=== PATIENT | male | born 1945 | race Caucasian/White ===

== ENCOUNTER 2018-08-08 10:09 | Emergency (ER) | payer MEDICARE, OTHER ==
--- NOTE | 2018-08-08 10:46 | ED Physician Documentation ---
PD HPI HEENT - Stated complaint Stated Complaint: SWOLLEN TOUNGE - Chief complaint Chief Complaint: Allergic Rx - History obtained from History obtained from: Patient - History of Present Illness Timing - onset: How many days ago (4) Timing - duration: Days (4) Timing - details: Gradual onset, Still present, Waxing and waning Location: Throat (feeling of tongue enlarged, but does not look like it.) Improves: No: Medication Worsens: No: Swalllowing Associated symptoms: No: Fever, Congestion, Rhinorrhea, Facial swelling (but feeling of back of tonue s) Similar symptoms before: Has not had sx before Review of Systems Constitutional: denies: Fever Nose: denies: Rhinorrhea / runny nose, Congestion Throat: reports: Sore throat Respiratory: denies: Cough PD PAST MEDICAL HISTORY - Past Medical History Past Medical History: No Cardiovascular: None Respiratory: None Neuro: TIA Endocrine/Autoimmune: None GI: None : None HEENT: None Psych: None Musculoskeletal: None Derm: None Other Past Medical History: patient in no acute distress or discomfort. states he santizo have an ear infection to both ears. - Past Surgical History Past Surgical History: No - Present Medications Home Medications: Ambulatory Orders Medication Instructions Recorded Confirmed Cetirizine [ZyrTEC] 10 mg PO DAILY #15 tablet 08/08/18 Ciproflox/Dexameth Otic Drops 4 drops OT BID #1 bottle 08/08/18 [Ciprodex] Clotrimazole 4 drops LEFTEAR BID #1 bottle 08/08/18 Dexamethasone [Decadron] 4 mg PO DAILY #5 tablet 08/08/18 Famotidine 20 mg PO DAILY #15 tablet 08/08/18 - Allergies Allergies/Adverse Reactions: Allergies Allergy/AdvReac Type Severity Reaction Status Date / Time No Known Drug Allergies Allergy Verified 08/08/18 10:18 - Social History Does the pt smoke?: No Smoking Status: Never smoker Does the pt drink ETOH?: Yes ETOH Use: Beer Does the pt have substance abuse?: No - Immunizations Immunizations are current?: No - POLST Patient has POLST: No PD ED PE NORMAL - Vitals Vital signs reviewed: Yes - General General: Alert and oriented X 3, No acute distress, Well developed/nourished - HEENT HEENT: Pharynx benign (I don't see swelling of tongue per see.) - Neck Neck: Supple, no meningeal sign, No adenopathy - Cardiac Cardiac: RRR, No murmur - Respiratory Respiratory: No respiratory distress - Abdomen Abdomen: Normal bowel sounds, Soft, Non tender Results - Vitals Vitals: Vital Signs - 24 hr 08/08/18 08/08/18 08/08/18 10:15 13:14 14:57 Temperature 36.4 C L Heart Rate 85 62 110 H Respiratory 18 16 16 Rate Blood Pressure 124/83 H 127/85 H 121/87 H O2 Saturation 98 98 97 Oxygen O2 Source Room air - Labs Labs: Laboratory Tests 08/08/18 08/08/18 12:05 12:05 Sodium 136 Potassium 2.9 L Chloride 97 L Carbon Dioxide 29 Anion Gap 10.0 BUN 14 Creatinine 1.3 H Estimated GFR (MDRD) 54 L Glucose 110 H Calcium 8.9 Total Bilirubin 0.7 AST 26 ALT 19 Alkaline Phosphatase 73 Total Protein 7.3 Albumin 3.6 Globulin 3.7 Albumin/Globulin Ratio 1.0 Lipase 37 Group A Strep Rapid Negative - Rads (name of study) CT neck soft tissue Radiology: Prelim report reviewed, Discussed with rads (improved enough to try outpatient, with ster) PD MEDICAL DECISION MAKING - ED course Complexity details: reviewed results (no noted focal edema, no mass, no abscess per radiologist. ), re-evaluated patient (feeling okay with sense of less swelling, but not completely resolved. ), considered differential (feeling of tongue swelling though visually not really enlarged. Uvula/Tonsils are okay size. Can get imaging to look for mass/abscess/focal edema.), d/w patient Departure - Departure Disposition: 01 Home, Self Care Clinical Impression: Tongue swelling Otitis externa Qualifiers: Otitis externa type: unspecified type Chronicity: acute Laterality: left Qualified Code(s): H60.502 - Unspecified acute noninfective otitis externa, left ear Condition: Stable Record reviewed to determine appropriate education?: Yes Instructions: ED Allergic Reaction General Other Follow-Up: [facility] [Provider Group] [facility] [Provider Group] Prescriptions: Cetirizine [ZyrTEC] 10 mg PO DAILY #15 tablet Ciproflox/Dexameth Otic Drops [Ciprodex] 4 drops OT BID #1 bottle Clotrimazole 4 drops LEFTEAR BID #1 bottle Dexamethasone [Decadron] 4 mg PO DAILY #5 tablet Famotidine 20 mg PO DAILY #15 tablet Comments: Presume this is an allergy reaction to something. Use the antihistamines and steroids as directed over the next week. Recheck if not improved over the next couple of days. If this does not improve completely or comes back again in the near future, then follow-up with manager search and I gave you the follow-up number. Otherwise obtain a local provider for future care and follow-up. For the ear infection, it looks like it could be bacterial or even possibly fungal. I would have use both in antibiotic eardrop with an anti-inflammatory as well as an antifungal eardrop. Both of them a few drops in the ear canal and a little bit rubbed onto the external part twice daily until its cleared up. Recheck if not improved over the next several days to week or so. Discharge Date/Time: 08/08/18 15:06
[2018-08-08] MEDS: diphenhydrAMINE ELIXIR 25 MG/10 ML UDC PO STA (11:25)
[2018-08-08] MEDS: DEXAMETHASONE 10 MG/ML VIAL PO STA (11:25)
[2018-08-08] MEDS: CETIRIZINE 10 MG TABLET PO STA (11:25)
[2018-08-08] MEDS ORDERED: CHERRY SYRUP 10 ML UDC PO ONE (11:27)
[2018-08-08] MEDS ORDERED: IOVERSOL 320 100 ML VIAL IVP ONE (11:29)
[2018-08-08 12:28] LABS: ALBUMIN 3.6 g/dL (3.2-5.5); BILIRUBIN,TOTAL 0.7 mg/dL (0.2-1.0); CALCIUM 8.9 mg/dL (8.5-10.3); CREATININE 1.3 mg/dL (0.6-1.2); TOTAL PROTEIN 7.3 g/dL (6.7-8.2)
[2018-08-08] MEDS: IOVERSOL 320 100 ML VIAL IVP ONE (13:00)
--- NOTE | 2018-08-08 13:56 | CT Report ---
Reason: feeling of swelling base of tongue and upper throa Procedure Date: 08/08/2018 Accession Number: [id number] / [id number] Procedure: CT - Neck Soft Tissue W/ CPT Code: FULL RESULT: EXAM: CT SOFT TISSUE NECK WITH CONTRAST. EXAM DATE: 08/08/2018 12:56 PM. HISTORY: 73-year-old male, feeling of swelling base of tongue and upper throat COMPARISONS: None. TECHNIQUE: Routine soft tissue neck CT protocol. Reconstructions: Coronal and sagittal. IV contrast: 80 cc Optiray 320. In accordance with CT protocol optimization, one or more of the following dose reduction techniques were utilized for this exam: automated exposure control, adjustment of mA and/or KV based on patient size, or use of iterative reconstructive technique. FINDINGS: Visualized Intracranial Contents: Unremarkable. Orbits: Symmetric and unremarkable. Sinuses: Visualized paranasal sinuses and mastoid air cells are clear. Oral cavity: The visualized oral cavity is unremarkable. The floor of the mouth is symmetric. Pharynx : Pharyngeal mucosa is unremarkable. The infratemporal fossa, parapharyngeal spaces, and retropharyngeal space are unremarkable. The base of the tongue is symmetric and unremarkable. The airway is patent. Larynx: Larynx and supraglottic airway are patent without mass lesion. Vocal cords are symmetric. The visualized trachea is unremarkable. Parotid and Submandibular Glands: Symmetric and unremarkable. Lymph Nodes: No enlarged lymph nodes are identified in the cervical, supraclavicular, and visualized superior mediastinal regions. Soft tissues: Soft tissues are unremarkable. No mass lesion or abnormal enhancement. Vascular Structures: Unremarkable. Thyroid Gland: Normal. Lung: The visualized lung apices are clear. Bones: No evidence of acute fracture or malalignment. There are mild multilevel degenerative changes. Other: None. IMPRESSION: No definite mucosal abnormality, soft tissue mass, adenopathy, or abscess. RADIA
[2018-08-08 14:57] VITALS: BP 121/87
== END 2018-08-08 15:06 | disposition home or self-care (01) ==
LOC: ED 10:09
DX: K14.8 Other diseases of tongue (principal); H60.502 Unspecified acute noninfective otitis externa, left ear; R22.1 Localized swelling, mass and lump, neck; Z86.73 Personal history of transient ischemic attack (TIA), and cerebral infarction without residual deficits
CPT/HCPCS: 36415; 70491; 80053; 83690; 87070; 87430; 99283; A9270; Q9967

== ENCOUNTER 2019-10-03 13:38 | Inpatient (IN) | payer MEDICARE, OTHER ==
[2019-10-03] MEDS ORDERED: SODIUM CHLORIDE 0.9% 1,000 ML IV ONE ×2 (14:13→15:12)
--- NOTE | 2019-10-03 14:17 | ED Physician Documentation ---
History of Present Illness - Stated complaint Stated Complaint: N/V/LT SIDE ABD PX - Chief complaint Chief Complaint: Abd Pain - History obtained from History obtained from: Patient - Additonal information Additional information: Patient comes emergency department complaining of nausea and vomiting for the last 8 to 9 days. Patient states if he tries to take anything other than small amounts of water, he vomits them right back up. Patient states the last thing he ate was Cheerios over a week ago. Patient states that he thought he might be constipated because he was not having bowel movements or passing gas, so he tried taking laxatives but these did not work. He states that he has not had a bowel movement the entire time that he has been ill. He denies any fevers. He gets an intermittent left-sided abdominal pain. No dysuria or hematuria. No history of kidney stones. No cough, fever, or shortness of breath. No lower extremity edema. Patient states he is still making urine, but that this is been less than normal. He denies any underlying conditions that he knows of. No diabetes. He has not had any unexpected weight loss prior to this illness, though he does note he has lost 20 pounds in the last week and a half. No other complaints at this time. No sick contacts. Review of Systems Ten Systems: 10 systems reviewed and negative Constitutional: reports: Reviewed and negative Eyes: reports: Reviewed and negative Ears: reports: Reviewed and negative Nose: reports: Reviewed and negative Throat: reports: Reviewed and negative Cardiac: reports: Reviewed and negative Respiratory: reports: Reviewed and negative GI: reports: Abdominal Pain, Nausea, Vomiting. denies: Diarrhea : reports: Reviewed and negative Skin: reports: Reviewed and negative Musculoskeletal: reports: Reviewed and negative Neurologic: reports: Reviewed and negative Psychiatric: reports: Reviewed and negative Endocrine: reports: Reviewed and negative Immunocompromised: reports: Reviewed and negative PD PAST MEDICAL HISTORY - Past Medical History Past Medical History: Yes Cardiovascular: None Respiratory: None Neuro: TIA Endocrine/Autoimmune: None GI: None : None HEENT: None Psych: None Musculoskeletal: None Derm: None - Past Surgical History Past Surgical History: No - Present Medications Home Medications: Ambulatory Orders Medication Instructions Recorded Confirmed No Known Home Medications 10/04/19 10/04/19 - Allergies Allergies/Adverse Reactions: Allergies Allergy/AdvReac Type Severity Reaction Status Date / Time No Known Drug Allergies Allergy Verified 10/03/19 13:56 - Social History Does the pt smoke?: No Smoking Status: Never smoker Does the pt drink ETOH?: Yes Does the pt have substance abuse?: No - Immunizations Immunizations are current?: No - POLST Patient has POLST: No PD ED PE NORMAL - Vitals Vital signs reviewed: Yes - General General: Alert and oriented X 3, No acute distress, Well developed/nourished - HEENT HEENT: Atraumatic, PERRL, EOMI, Moist mucous membranes - Neck Neck: Supple, no meningeal sign - Cardiac Cardiac: RRR, No murmur, Strong equal pulses - Respiratory Respiratory: No respiratory distress, Clear bilaterally - Abdomen Abdomen: Soft, Non tender, Non distended - Back Back: No CVA TTP - Derm Derm: Normal color, Warm and dry, No rash - Extremities Extremities: No deformity - Neuro Neuro: Alert and oriented X 3, instructional aide 2-12 intact, No motor deficit, No sensory deficit, Normal speech - Psych Psych: Normal mood, Normal affect Results - Vitals Vitals: Vital Signs - 24 hr 10/03/19 10/03/19 10/03/19 13:50 14:54 15:41 Temperature 35.8 C L Heart Rate 107 H 94 68 Respiratory 20 16 16 Rate Blood Pressure 138/95 H 149/87 H 142/81 H O2 Saturation 96 97 98 10/03/19 10/03/19 16:54 18:21 Temperature Heart Rate 72 76 Respiratory 16 17 Rate Blood Pressure 132/80 H 136/73 H O2 Saturation 98 98 Oxygen O2 Source Room air - Labs Labs: Laboratory Tests 10/03/19 10/03/19 10/03/19 14:00 14:00 14:00 WBC 10.7 RBC 5.42 Hgb 15.9 Hct 48.3 MCV 89.1 MCH 29.3 MCHC 32.9 RDW 13.6 Plt Count 365 MPV 10.8 Neut # (Auto) 8.5 H Lymph # (Auto) 1.4 L Cooper # (Auto) 0.7 Eos # (Auto) 0.0 Baso # (Auto) 0.0 Absolute Nucleated RBC 0.00 Nucleated RBC % 0.0 PT 14.2 H INR 1.3 H Sodium 142 Potassium 3.5 Chloride 106 Carbon Dioxide 20 L Anion Gap 16.0 H BUN 78 H Creatinine 1.9 H Estimated GFR (MDRD) 35 L Glucose 126 H Lactic Acid Calcium 9.2 Total Bilirubin 1.0 AST 17 ALT 13 Alkaline Phosphatase 71 Total Protein 8.5 H Albumin 4.0 Globulin 4.5 H Albumin/Globulin Ratio 0.9 L Lipase 29 Urine Color Urine Clarity Urine pH Ur Specific [place] Urine Protein Urine Glucose (UA) Urine Ketones Urine Occult Blood Urine Nitrite Urine Bilirubin Urine Urobilinogen Ur Leukocyte Esterase Ur Microscopic Review Urine Culture Comments 10/03/19 10/03/19 16:52 17:05 WBC RBC Hgb Hct MCV MCH MCHC RDW Plt Count MPV Neut # (Auto) Lymph # (Auto) Cooper # (Auto) Eos # (Auto) Baso # (Auto) Absolute Nucleated RBC Nucleated RBC % PT INR Sodium Potassium Chloride Carbon Dioxide Anion Gap BUN Creatinine Estimated GFR (MDRD) Glucose Lactic Acid 1.1 Calcium Total Bilirubin AST ALT Alkaline Phosphatase Total Protein Albumin Globulin Albumin/Globulin Ratio Lipase Urine Color YELLOW Urine Clarity CLEAR Urine pH 5.5 Ur Specific [place] 1.025 Urine Protein TRACE Urine Glucose (UA) NEGATIVE Urine Ketones TRACE Urine Occult Blood NEGATIVE Urine Nitrite NEGATIVE Urine Bilirubin NEGATIVE Urine Urobilinogen 0.2 (NORMAL) Ur Leukocyte Esterase NEGATIVE Ur Microscopic Review NOT INDICATED Urine Culture Comments NOT INDICATED - Rads (name of study) CT abdomen and pelvis Radiology: Final report received, Discussed with rads, EMP read indepedently, See rad report (Final radiologist interpretation: Free intra-abdominal air, seen in upper abdomen. Exact source is indeterminate. Small bowel obstruction that is suspected to be secondary to a twisting of the central mesentery.) PD MEDICAL DECISION MAKING - ED course Complexity details: reviewed results, re-evaluated patient, considered differential, d/w patient ED course: Patient was worked up with labs and urinalysis initially, and given a 1 L bolus of 0.9 normal saline. He reported a significant period of time with nausea and vomiting and without being able to take in significant p.o. However, his vitals were not significantly abnormal, and his abdominal exam was benign. Patient was found to have a normal lactate and normal white blood cell count. He had not made any urine after the first liter fluid so he was given a second liter. CT scan of the abdomen and pelvis was performed, albeit without contrast because the patient's creatinine was 1.9 and his GFR was only 35. He was found to have what appeared to be twisting of the mesentery and a small bowel obstruction, as well as scant bubbles of free air up around the liver, under the diaphragm. I spoke with Dr. Leavitt, who is on-call for surgery, and after evaluating the patient and his records, she asked if medicine could admit the patient, as at this point, there is not a clear source of the perforation and the patient is very stable. She stated she suspects that perhaps have patient has had Crohn's for some time and has not been aware of this. I did speak with Dr. Cardona, who did agree to come and see the patient. After speaking with the surgeon, the patient was admitted to hospitalist service. I given him a dose of cefotetan but at hospitalist request, this was changed to Zosyn. The patient remained very stable in the ED, and his heart rate did normalize from the mild tachycardia he initially had. He still had not made urine after the second liter so 1/3 L of 0.9 normal saline was started in the emergency department. Departure - Departure Disposition: [facility] DC/Xfer Clinical Impression: Small bowel obstruction, Perforated abdominal viscus Condition: Serious Discharge Date/Time: 10/03/19 19:23
[2019-10-03 14:23] LABS: BASOPHILS % (AUTO) 0.2 %; HGB - HEMOGLOBIN 15.9 g/dL (14.0-18.0); LYMPHOCYTES # (AUTO) 1.4 10^3/uL (1.5-3.5); LYMPHOCYTES % (AUTO) 13.1 %; MEAN CORPUSCULAR HEMOGLOBIN 29.3 pg (27.0-31.0); MEAN CORPUSCULAR HGB CONC 32.9 g/dL (32.0-36.0); MEAN CORPUSCULAR VOLUME 89.1 fL (80.0-94.0); MEAN PLATELET VOLUME 10.8 fL (7.4-11.4); MONOCYTES # (AUTO) 0.7 10^3/uL (0.0-1.0); MONOCYTES % (AUTO) 6.5 %; NEUTROPHILS # (AUTO) 8.5 10^3/uL (1.5-6.6); NEUTROPHILS % (AUTO) 79.7 %; PLT - PLATELET COUNT 365 10^3/uL (130-450); RED BLOOD COUNT 5.42 10^6/uL (4.70-6.10); RED CELL DISTRIBUTION WIDTH 13.6 % (12.0-15.0); WHITE BLOOD COUNT 10.7 x10^3/uL (4.8-10.8)
[2019-10-03 14:28] LABS: INR 1.3 (0.8-1.2); PT - PROTHROMBIN TIME 14.2 secs (9.9-12.6)
[2019-10-03 14:37] LABS: ALBUMIN/GLOBULIN RATIO 0.9 (1.0-2.2); CALCIUM 9.2 mg/dL (8.5-10.3); CREATININE 1.9 mg/dL (0.6-1.2); TOTAL PROTEIN 8.5 g/dL (6.7-8.2)
--- NOTE | 2019-10-03 16:27 | CT Report ---
Reason: abdominal pain, vomiting Procedure Date: 10/03/2019 Accession Number: [id number] / [id number] Procedure: CT - Abdomen/Pelvis WO CPT Code: Addended Final Report FULL RESULT: EXAM: CT ABDOMEN AND PELVIS (CT KUB) EXAM DATE: 10/03/2019 03:32 PM. CLINICAL HISTORY: Abdominal pain, vomiting. COMPARISONS: None. TECHNIQUE: Routine axial helical CT imaging was performed through the abdomen and pelvis without IV contrast. Reconstructions: Coronal and sagittal. In accordance with CT protocol optimization, one or more of the following dose reduction techniques were utilized for this exam: automated exposure control, adjustment of mA and/or KV based on patient size, or use of iterative reconstructive technique. FINDINGS: There is free intraperitoneal air, with small air lucencies seen within the mesentery of the upper abdomen, as well as anterior to the liver and along the left paracolic gutter. The stomach is distended with fluid. There are dilated small bowel loops in the lower abdomen and within the pelvis measuring up to 3.2 cm transversely, with air-fluid levels. There is a twisting of the central mesentery with associated fat stranding, best seen on coronal images series 5 images 15 through 25. The bowel distal to this finding appears to be relatively decompressed, including the colon. No focal lesions detected of the parenchyma of the non-IV contrasted liver, spleen, pancreas, adrenal glands, or kidneys. No aneurysm of the abdominal aorta identified. IMPRESSION: 1. Free intraabdominal air, seen in the upper abdomen. Exact source is indeterminate. 2. Small bowel obstruction that is suspected to be secondary to a twisting of the central mesentery. RADIA The call report notification system was initiated by Dr. Shawn Becker at 04:26 PM on 10/03/2019. ADDENDUM: 10/03/19 16:43 The above call report findings were discussed with Dr. Heidy Rivers by Dr. Shawn Becker at 04:43 PM on 10/03/2019.
[2019-10-03] MEDS ORDERED: CEFOTETAN DISODIUM 2 GM in SODIUM CHLORIDE 0.9% MINIBAG 100 ML IV STA (16:37)
[2019-10-03 17:15] LABS: BILIRUBIN,URINE NEGATIVE (NEGATIVE); GLUCOSE, URINE (UA) NEGATIVE (NEGATIVE); KETONES,URINE (UA) TRACE mg/dL (NEGATIVE); LEUKOCYTE ESTERASE, URINE NEGATIVE (NEGATIVE); NITRITE,URINE NEGATIVE (NEGATIVE); OCCULT BLOOD,URINE NEGATIVE (NEGATIVE); PH,URINE 5.5 PH (5.0-7.5); PROTEIN,URINE TRACE mg/dL (NEGATIVE); UROBILINOGEN,URINE 0.2 (NORMAL) E.U./dL (NORMAL)
[2019-10-03 17:18] LABS: CLARITY,URINE CLEAR (CLEAR)
[2019-10-03] MEDS ORDERED: PIPERACILLIN/TAZOBACTAM 3.375 GM in SODIUM CHLORIDE 0.9% MINIBAG 100 ML IV STA (18:00)
[2019-10-03] MEDS ORDERED: MORPHINE 2 MG/ML CARPUJECT IVP PRN (18:35)
[2019-10-03] MEDS ORDERED: ONDANSETRON 4 MG/2 ML VIAL IVP PRN (18:35)
[2019-10-03] MEDS ORDERED: SODIUM CHLORIDE FLUSH 0.9% 10 ML SYRINGE IVP PRN (18:35)
[2019-10-03] MEDS ORDERED: PROCHLORPERAZINE 10 MG/2 ML VIAL IVP PRN (18:35)
--- NOTE | 2019-10-03 18:50 | HISTORY & PHYSICAL EXAMINATION ---
Chief Complaint - Chief Complaint Chief Complaint: Nausea and vomiting x1 week with abdominal pain Abdominal Pain HPI - Admitted From Admitted from: ED - History Obtained From Records Reviewed: RN notes reviewed History obtained from: Patient Exam limitations: No limitations - History of Present Illness Pain/Problem Location Description: Patient presented with a one-week history of abdominal pain that started 7 Severity at the worst: Severe Pain Quality: Sharp Context-Pain started w/: Eating Timing: Gradual onset Duration: Minutes: Improved with: Other (Avoiding food) Worsened by: Eating Associated symptoms: Nausea, Vomiting, General Weakness PMH/PSH - Past Medical History Cardiovascular: positive: None Respiratory: positive: None Neuro: positive: TIA Endocrine/Autoimmune: positive: None GI: positive: None : positive: None HEENT: positive: None Psych: positive: None Musculoskeletal: positive: None Derm: positive: None MRSA Hx?: No Social & Family Hx - Living Situation Living Arrangement: At home Living Situation: Other (With) - Social History Does the pt smoke?: Yes Smoking Status: Current every day smoker Does the pt drink ETOH?: No Does the pt have substance abuse?: No - POLST Patient has POLST: No POLST Status: Full Code - Family History Family History Comment/Other: Patient denies any family history of medical conditions of any kind including cancers and autoimmune conditions Meds/Allgy - Home Medications Home Medications: Ambulatory Orders Medication Instructions Recorded Confirmed Cetirizine [ZyrTEC] 10 mg PO DAILY #15 tablet 08/08/18 Famotidine 20 mg PO DAILY #15 tablet 08/08/18 - Allergies Allergies/Adverse Reactions: Allergies Allergy/AdvReac Type Severity Reaction Status Date / Time No Known Drug Allergies Allergy Verified 10/03/19 13:56 Review of Systems - Constitutional Constitutional: reports: Fatigue. denies: Fever, Chills - Cardiovascular Cariovascular: denies: Irregular heart rate, Palpitations, Chest pain - Respiratory Respiratory: denies: Cough, Wheezing, SOB at rest, SOB with exertion - Gastrointestinal Gastrointestinal: reports: Abdominal pain, Constipation, Change in bowel habits, Nausea, Vomiting. denies: Abdominal distention, Diarrhea, Rectal bleeding - Genitourinary Genitourinary: denies: Dysuria, Frequency, Urgency, Hematuria - Musculoskeletal Musculoskeletal: denies: Muscle pain - Integumentary Integumentary: denies: Rash - Neurological Neurological: reports: General weakness. denies: Focal weakness Prior Level of Functionality: Independant Exam - Vital Signs Reviewed Vital Signs: Yes Vital Signs: Vital Signs x48h Temp Pulse Resp BP Pulse Ox 10/03/19 18:21 76 17 136/73 H 98 10/03/19 16:54 72 16 132/80 H 98 10/03/19 15:41 68 16 142/81 H 98 10/03/19 14:54 94 16 149/87 H 97 10/03/19 13:50 35.8 C L 107 H 20 138/95 H 96 - Physical Exam General Appearance: positive: No acute distress Eyes Bilateral: positive: Normal inspection ENT: positive: ENT inspection nml Neck: positive: Nml inspection, Thyroid nml, No JVD Respiratory: positive: Chest non-tender, No respiratory distress, Breath sounds nml Cardiovascular: positive: Regular rate & rhythm, No murmur, No gallop Abdomen: positive: Other (Minimal generalized abdominal tenderness, somewhat worse at the right upper quadrant, but relatively benign abdominal exam. No distention, no rebound, bowel sounds positive x4 quadrants) Skin: positive: Color nml Extremities: positive: Non-tender, Full ROM, Nml appearance Neurologic/Psychiatric: positive: Oriented x3, CN's nml (2-12) Results - Lab Results Fish Bones: 10/03/19 14:00 10/03/19 14:00 Other Lab Results: Lab Results x24hrs 10/03/19 10/03/19 10/03/19 Range/Units 17:05 16:52 14:00 WBC (4.8-10.8) x10^3/uL RBC (4.70-6.10) 10^6/uL Hgb (14.0-18.0) g/dL Hct (42.0-52.0) % MCV (80.0-94.0) fL MCH (27.0-31.0) pg MCHC (32.0-36.0) g/dL RDW (12.0-15.0) % Plt Count (130-450) 10^3/uL MPV (7.4-11.4) fL Neut # (Auto) (1.5-6.6) 10^3/uL Lymph # (Auto) (1.5-3.5) 10^3/uL [place] # (Auto) (0.0-1.0) 10^3/uL Eos # (Auto) (0.0-0.7) 10^3/uL Baso # (Auto) (0.0-0.1) 10^3/uL Absolute Nucleated RBC x10^3/uL Nucleated RBC % /100WBC PT (9.9-12.6) secs INR (0.8-1.2) Sodium 142 (135-145) mmol/L Potassium 3.5 (3.5-5.0) mmol/L Chloride 106 (101-111) mmol/L Carbon Dioxide 20 L (21-32) mmol/L Anion Gap 16.0 H (6-13) BUN 78 H (6-20) mg/dL Creatinine 1.9 H (0.6-1.2) mg/dL Estimated GFR (MDRD) 35 L (>89) Glucose 126 H (70-100) mg/dL Lactic Acid 1.1 (0.5-2.2) mmol/L Calcium 9.2 (8.5-10.3) mg/dL Total Bilirubin 1.0 (0.2-1.0) mg/dL AST 17 (10-42) IU/L ALT 13 (10-60) IU/L Alkaline Phosphatase 71 (42-121) IU/L Total Protein 8.5 H (6.7-8.2) g/dL Albumin 4.0 (3.2-5.5) g/dL Globulin 4.5 H (2.1-4.2) g/dL Albumin/Globulin Ratio 0.9 L (1.0-2.2) Lipase 29 (22-51) U/L Urine Color YELLOW Urine Clarity CLEAR (CLEAR) Urine pH 5.5 (5.0-7.5) PH Ur Specific [place] 1.025 (1.002-1.030) Urine Protein TRACE (NEGATIVE) mg/dL Urine Glucose (UA) NEGATIVE (NEGATIVE) mg/dL Urine Ketones TRACE (NEGATIVE) mg/dL Urine Occult Blood NEGATIVE (NEGATIVE) Urine Nitrite NEGATIVE (NEGATIVE) Urine Bilirubin NEGATIVE (NEGATIVE) Urine Urobilinogen 0.2 (NORMAL) (NORMAL) E.U./dL Ur Leukocyte Esterase NEGATIVE (NEGATIVE) Ur Microscopic Review NOT INDICATED Urine Culture Comments NOT INDICATED 10/03/19 10/03/19 Range/Units 14:00 14:00 WBC 10.7 (4.8-10.8) x10^3/uL RBC 5.42 (4.70-6.10) 10^6/uL Hgb 15.9 (14.0-18.0) g/dL Hct 48.3 (42.0-52.0) % MCV 89.1 (80.0-94.0) fL MCH 29.3 (27.0-31.0) pg MCHC 32.9 (32.0-36.0) g/dL RDW 13.6 (12.0-15.0) % Plt Count 365 (130-450) 10^3/uL MPV 10.8 (7.4-11.4) fL Neut # (Auto) 8.5 H (1.5-6.6) 10^3/uL Lymph # (Auto) 1.4 L (1.5-3.5) 10^3/uL [place] # (Auto) 0.7 (0.0-1.0) 10^3/uL Eos # (Auto) 0.0 (0.0-0.7) 10^3/uL Baso # (Auto) 0.0 (0.0-0.1) 10^3/uL Absolute Nucleated RBC 0.00 x10^3/uL Nucleated RBC % 0.0 /100WBC PT 14.2 H (9.9-12.6) secs INR 1.3 H (0.8-1.2) Sodium (135-145) mmol/L Potassium (3.5-5.0) mmol/L Chloride (101-111) mmol/L Carbon Dioxide (21-32) mmol/L Anion Gap (6-13) BUN (6-20) mg/dL Creatinine (0.6-1.2) mg/dL Estimated GFR (MDRD) (>89) Glucose (70-100) mg/dL Lactic Acid (0.5-2.2) mmol/L Calcium (8.5-10.3) mg/dL Total Bilirubin (0.2-1.0) mg/dL AST (10-42) IU/L ALT (10-60) IU/L Alkaline Phosphatase (42-121) IU/L Total Protein (6.7-8.2) g/dL Albumin (3.2-5.5) g/dL Globulin (2.1-4.2) g/dL Albumin/Globulin Ratio (1.0-2.2) Lipase (22-51) U/L Urine Color Urine Clarity (CLEAR) Urine pH (5.0-7.5) PH Ur Specific [place] (1.002-1.030) Urine Protein (NEGATIVE) mg/dL Urine Glucose (UA) (NEGATIVE) mg/dL Urine Ketones (NEGATIVE) mg/dL Urine Occult Blood (NEGATIVE) Urine Nitrite (NEGATIVE) Urine Bilirubin (NEGATIVE) Urine Urobilinogen (NORMAL) E.U./dL Ur Leukocyte Esterase (NEGATIVE) Ur Microscopic Review Urine Culture Comments - Diagnostic Imaging Results Diagnostic Imaging Results: positive: Final report reviewed Impression/Plan - Problem List Problem List: Small bowel obstruction Free air in the abdomen Nausea and vomiting PATY Impression: Patient has findings on CT scan consistent with a small bowel obstruction with the possibility of a small perforation suggested by the free air in the right hemidiaphragmatic space. Most likely of small bowel origin. Discussed with general surgery, and miriam, who was kind enough to provide consultative services. Her thinking is that this is likely inflammatory bowel disease, pr obably Crohn's, and I would agree that this is certainly a suspicion, supported by the history that the patient had similar symptoms about 1 year ago and coincidentally had some tongue swelling for which she was given a steroid which also helped his GI symptoms. Patient is having PATY, which is prohibited the use of contrast during the CT scan, likely precipitated by the nausea and vomiting in the last 7 days.Will provide IV fluids for hydration, optimize renal function, with plan to repeat CT scan in the next 1 to 2 days with oral and IV contrast and after further evaluating unenhanced imaging, deciding on possible colonoscopy versus transfer for outside facility for more complicated fistula, or inflammatory bowel disease etc. For now, hold off on steroids and treat empirically with IV antibiotics, using Zosyn for intra-abdominal pathogen coverage. Core Measures - Anticipated LOS I expect patient to be DC'd or transferred within 96 hours.: Yes - DVT/VTE - Prophylaxis VTE/DVT Device ordered at admit?: Yes VTE/DVT Prophylaxis med ordered at admit?: No Not Ordered - Medical Reason: Not indicated
[2019-10-03] MEDS: PIPERACILLIN/TAZOBACTAM 3.375 GM in SODIUM CHLORIDE 0.9% MINIBAG 100 ML IV SCH ×2 (19:18→19:53)
--- NOTE | 2019-10-03 20:15 | HISTORY & PHYSICAL EXAMINATION ---
Chief Complaint - Chief Complaint Chief Complaint: nausea/vomitting/abdominal pain Abdominal Pain HPI - History Obtained From Records Reviewed: RN notes reviewed, Old records reviewed History obtained from: Patient - History of Present Illness HPI Comment/Other: Conor is a very pleasant 74 yo WM who came into the ER due to nausea/vomiting, abdominal pain and lack of BM/passing gas which all started 8 days ago. He reports he started with moderate-severe cramping periumbilical pain that was at it's worst 5 days ago and has lessened but not resolved. It is associated with nausea and vomiting which started about 4-5 days ago the nausea became worse and started vomiting. He stopped passing gas at that time as well. He hasn't had an appetite for the entire time and wasn't able to keep anything down except water for the last 5 days. He also reports his last BM was about 10 days ago. He tried lost of laxatives which haven't had any success. He has had an episode like this about a year ago, after 3-4 days he developed swelling of his tongue and went to the ER and was given IV steroids and sent home on steroids and he reports his bowel symptoms and his swelling resolved and hasn't had an episode since. He also reports a 7 year history of diarrhea. He describes it as 2-3 non-formed loose stools a day, he doesn't remember it following a particular incident just started. There is some variation with food choices. He did not go see anyone about this. He has not had any scopes done or any workup. PMH/PSH - Past Medical History Cardiovascular: positive: None Respiratory: positive: None Neuro: positive: TIA Endocrine/Autoimmune: positive: None GI: positive: None : positive: None HEENT: positive: None Psych: positive: None Musculoskeletal: positive: None Derm: positive: None MRSA Hx?: No Social & Family Hx - Social History Does the pt smoke?: Yes Smoking Status: Current every day smoker Does the pt drink ETOH?: No Does the pt have substance abuse?: No - POLST Patient has POLST: No POLST Status: Full Code Meds/Allgy - Home Medications Home Medications: Ambulatory Orders Medication Instructions Recorded Confirmed Cetirizine [ZyrTEC] 10 mg PO DAILY #15 tablet 08/08/18 Famotidine 20 mg PO DAILY #15 tablet 08/08/18 - Allergies Allergies/Adverse Reactions: Allergies Allergy/AdvReac Type Severity Reaction Status Date / Time No Known Drug Allergies Allergy Verified 10/03/19 13:56 Review of Systems - Constitutional Constitutional: reports: Fatigue, Malaise, Poor appetite, Weight loss. denies: Fever, Chills - Eyes Eyes: denies: Pain - Ears, Nose & Throat Ears, Nose & Throat: denies: Ear pain - Cardiovascular Cariovascular: reports: Other (history of an ND). denies: Irregular heart rate, Palpitations, Chest pain - Respiratory Respiratory: denies: Cough, Wheezing - Gastrointestinal Gastrointestinal: reports: Abdominal pain (started 8 days ago with periumbilical pain that was at it's worst 5 days ago and has lessened but not resolved), Diarrhea (for the last 7 years, never gone in to have it worked up), Nausea, Vomiting - All Other Systems All Other Systems: reports: Reviewed and negative Exam - Vital Signs Vital Signs: Vital Signs x48h Temp Pulse Pulse Resp BP BP Pulse Ox 10/03/19 19:44 36.7 C 71 17 127/79 98 10/03/19 19:21 67 14 135/71 H 98 10/03/19 18:21 76 17 136/73 H 98 10/03/19 16:54 72 16 132/80 H 98 10/03/19 15:41 68 16 142/81 H 98 10/03/19 14:54 94 16 149/87 H 97 10/03/19 13:50 35.8 C L 107 H 20 138/95 H 96 - Physical Exam General Appearance: positive: No acute distress (resting comfortably in bed able to hold conversation without any issues moving around in bed without discomfort) Eyes Bilateral: positive: Normal inspection ENT: positive: ENT inspection nml Neck: positive: Nml inspection Respiratory: positive: Breath sounds nml Cardiovascular: positive: Regular rate & rhythm Abdomen: positive: Non-tender, No distention, Abnml bowel sounds (hypoactive BS), Other (unimpressive abdominal exam with diminished BS). negative: Guarding, Rebound, Mass Skin: positive: Warm, Dry Extremities: positive: Full ROM, Nml appearance Neurologic/Psychiatric: positive: Oriented x3, Mood/affect nml Results - Lab Results Fish Bones: 10/03/19 14:00 10/03/19 14:00 Other Lab Results: Lab Results x24hrs 10/03/19 10/03/19 10/03/19 Range/Units 17:05 16:52 14:00 WBC (4.8-10.8) x10^3/uL RBC (4.70-6.10) 10^6/uL Hgb (14.0-18.0) g/dL Hct (42.0-52.0) % MCV (80.0-94.0) fL MCH (27.0-31.0) pg MCHC (32.0-36.0) g/dL RDW (12.0-15.0) % Plt Count (130-450) 10^3/uL MPV (7.4-11.4) fL Neut # (Auto) (1.5-6.6) 10^3/uL Lymph # (Auto) (1.5-3.5) 10^3/uL [place] # (Auto) (0.0-1.0) 10^3/uL Eos # (Auto) (0.0-0.7) 10^3/uL Baso # (Auto) (0.0-0.1) 10^3/uL Absolute Nucleated RBC x10^3/uL Nucleated RBC % /100WBC PT (9.9-12.6) secs INR (0.8-1.2) Sodium 142 (135-145) mmol/L Potassium 3.5 (3.5-5.0) mmol/L Chloride 106 (101-111) mmol/L Carbon Dioxide 20 L (21-32) mmol/L Anion Gap 16.0 H (6-13) BUN 78 H (6-20) mg/dL Creatinine 1.9 H (0.6-1.2) mg/dL Estimated GFR (MDRD) 35 L (>89) Glucose 126 H (70-100) mg/dL Lactic Acid 1.1 (0.5-2.2) mmol/L Calcium 9.2 (8.5-10.3) mg/dL Total Bilirubin 1.0 (0.2-1.0) mg/dL AST 17 (10-42) IU/L ALT 13 (10-60) IU/L Alkaline Phosphatase 71 (42-121) IU/L Total Protein 8.5 H (6.7-8.2) g/dL Albumin 4.0 (3.2-5.5) g/dL Globulin 4.5 H (2.1-4.2) g/dL Albumin/Globulin Ratio 0.9 L (1.0-2.2) Lipase 29 (22-51) U/L Urine Color YELLOW Urine Clarity CLEAR (CLEAR) Urine pH 5.5 (5.0-7.5) PH Ur Specific [place] 1.025 (1.002-1.030) Urine Protein TRACE (NEGATIVE) mg/dL Urine Glucose (UA) NEGATIVE (NEGATIVE) mg/dL Urine Ketones TRACE (NEGATIVE) mg/dL Urine Occult Blood NEGATIVE (NEGATIVE) Urine Nitrite NEGATIVE (NEGATIVE) Urine Bilirubin NEGATIVE (NEGATIVE) Urine Urobilinogen 0.2 (NORMAL) (NORMAL) E.U./dL Ur Leukocyte Esterase NEGATIVE (NEGATIVE) Ur Microscopic Review NOT INDICATED Urine Culture Comments NOT INDICATED 10/03/19 10/03/19 Range/Units 14:00 14:00 WBC 10.7 (4.8-10.8) x10^3/uL RBC 5.42 (4.70-6.10) 10^6/uL Hgb 15.9 (14.0-18.0) g/dL Hct 48.3 (42.0-52.0) % MCV 89.1 (80.0-94.0) fL MCH 29.3 (27.0-31.0) pg MCHC 32.9 (32.0-36.0) g/dL RDW 13.6 (12.0-15.0) % Plt Count 365 (130-450) 10^3/uL MPV 10.8 (7.4-11.4) fL Neut # (Auto) 8.5 H (1.5-6.6) 10^3/uL Lymph # (Auto) 1.4 L (1.5-3.5) 10^3/uL [place] # (Auto) 0.7 (0.0-1.0) 10^3/uL Eos # (Auto) 0.0 (0.0-0.7) 10^3/uL Baso # (Auto) 0.0 (0.0-0.1) 10^3/uL Absolute Nucleated RBC 0.00 x10^3/uL Nucleated RBC % 0.0 /100WBC PT 14.2 H (9.9-12.6) secs INR 1.3 H (0.8-1.2) Sodium (135-145) mmol/L Potassium (3.5-5.0) mmol/L Chloride (101-111) mmol/L Carbon Dioxide (21-32) mmol/L Anion Gap (6-13) BUN (6-20) mg/dL Creatinine (0.6-1.2) mg/dL Estimated GFR (MDRD) (>89) Glucose (70-100) mg/dL Lactic Acid (0.5-2.2) mmol/L Calcium (8.5-10.3) mg/dL Total Bilirubin (0.2-1.0) mg/dL AST (10-42) IU/L ALT (10-60) IU/L Alkaline Phosphatase (42-121) IU/L Total Protein (6.7-8.2) g/dL Albumin (3.2-5.5) g/dL Globulin (2.1-4.2) g/dL Albumin/Globulin Ratio (1.0-2.2) Lipase (22-51) U/L Urine Color Urine Clarity (CLEAR) Urine pH (5.0-7.5) PH Ur Specific [place] (1.002-1.030) Urine Protein (NEGATIVE) mg/dL Urine Glucose (UA) (NEGATIVE) mg/dL Urine Ketones (NEGATIVE) mg/dL Urine Occult Blood (NEGATIVE) Urine Nitrite (NEGATIVE) Urine Bilirubin (NEGATIVE) Urine Urobilinogen (NORMAL) E.U./dL Ur Leukocyte Esterase (NEGATIVE) Ur Microscopic Review Urine Culture Comments - Diagnostic Imaging Results Diagnostic Imaging Results Comments: CT scan images and report reviewed Impression/Plan - Problem List Problem List: 74 yo WM with no significant PSH and very mixed clinical/laboratory picture vs a highly concerning and abnormal CT scan with small amount of free air, mesenteric abnormalities and obstructive findings. This mixed picture along with a 7 year history of diarrhea and an episode similar but to a lessor degree of abdominal pain that also had tongue swelling that resolved with steroids a year ago all seem to allign with a possible inflammatory bowel disease etiology vs infectious or ischemic. He is clinically stable and after discussing the po ssible plans of care with the patient and the hospitalist we agree that rehydration, IV ABX therapy and bowel rest would be appropriate with planned inflammatory bowel blood panel, close monitoring and repeat CT scan of abd/pelvis with oral and IV contrast once his renal function recovers. He under stands that if any acute deterioration occurs we may need to consider surgical intervention. We also discussed the possibility of needing tertiary care requiring transfer.
[2019-10-03] MEDS: SODIUM CHLORIDE 0.9% 1,000 ML IV SCH (22:55)
[2019-10-04] MEDS: SODIUM CHLORIDE FLUSH 0.9% 10 ML SYRINGE IVP SCH ×3 (00:54→17:11)
[2019-10-04 05:00] LABS: HGB - HEMOGLOBIN 13.6 g/dL (14.0-18.0); MEAN CORPUSCULAR HEMOGLOBIN 29.3 pg (27.0-31.0); MEAN CORPUSCULAR HGB CONC 32.1 g/dL (32.0-36.0); MEAN CORPUSCULAR VOLUME 91.4 fL (80.0-94.0); MEAN PLATELET VOLUME 10.3 fL (7.4-11.4); RED BLOOD COUNT 4.64 10^6/uL (4.70-6.10); RED CELL DISTRIBUTION WIDTH 13.8 % (12.0-15.0)
[2019-10-04 05:13] LABS: ALBUMIN 3.2 g/dL (3.2-5.5); ALBUMIN/GLOBULIN RATIO 0.9 (1.0-2.2); BILIRUBIN,TOTAL 1.3 mg/dL (0.2-1.0); CALCIUM 8.4 mg/dL (8.5-10.3); CREATININE 1.6 mg/dL (0.6-1.2); TOTAL PROTEIN 6.8 g/dL (6.7-8.2)
[2019-10-04] MEDS: SODIUM CHLORIDE 0.9% 1,000 ML IV SCH ×3 (06:21→20:35)
[2019-10-04] MEDS: PIPERACILLIN/TAZOBACTAM 3.375 GM in SODIUM CHLORIDE 0.9% MINIBAG 100 ML IV SCH ×3 (06:22→21:05)
[2019-10-04] MEDS: PANTOPRAZOLE 40 MG TABLET PO SCH (06:26)
--- NOTE | 2019-10-04 08:46 | PROVIDER PROGRESS NOTE ---
Subjective - General Admit Date: 10/03/19 - Review of Systems General: positive: Fatigue Gastrointestinal: positive: Other (symptoms are unchanged, still some vague abdominal discomfort no caryl, no increase or change in his pain.) All Other Systems: positive: Reviewed and negative Objective - Patient Data Vital Signs: Vital Signs x48h Temp Pulse Resp BP Pulse Ox 10/04/19 07:51 36.2 C L 62 18 133/72 H 97 10/04/19 04:17 36.3 C L 58 L 16 128/69 98 Weight: Weight 10/02/19 10/03/19 10/04/19 23:59 23:59 23:59 Weight (kg) 58.5 kg Intake & Output: Intake and Output Totals x24h 10/02/19 10/03/19 10/04/19 23:59 23:59 23:59 Intake Total 2500 929.167 Output Total 325 Balance 2500 604.167 - Lab Results Lab Results: 10/04/19 04:40 10/04/19 04:40 Other Lab Results: Lab Results x24hrs 10/04/19 10/04/19 10/04/19 Range/Units 04:40 04:40 04:40 WBC 11.0 H (4.8-10.8) x10^3/uL RBC 4.64 L (4.70-6.10) 10^6/uL Hgb 13.6 L (14.0-18.0) g/dL Hct 42.4 (42.0-52.0) % MCV 91.4 (80.0-94.0) fL MCH 29.3 (27.0-31.0) pg MCHC 32.1 (32.0-36.0) g/dL RDW 13.8 (12.0-15.0) % Plt Count 276 (130-450) 10^3/uL MPV 10.3 (7.4-11.4) fL Neut # (Auto) (1.5-6.6) 10^3/uL Lymph # (Auto) (1.5-3.5) 10^3/uL [place] # (Auto) (0.0-1.0) 10^3/uL Eos # (Auto) (0.0-0.7) 10^3/uL Baso # (Auto) (0.0-0.1) 10^3/uL Absolute Nucleated RBC x10^3/uL Nucleated RBC % /100WBC PT (9.9-12.6) secs INR (0.8-1.2) Sodium 148 H (135-145) mmol/L Potassium 3.6 (3.5-5.0) mmol/L Chloride 115 H (101-111) mmol/L Carbon Dioxide 22 (21-32) mmol/L Anion Gap 11.0 (6-13) BUN 54 H (6-20) mg/dL Creatinine 1.6 H (0.6-1.2) mg/dL Estimated GFR (MDRD) 43 L (>89) Glucose 93 (70-100) mg/dL Lactic Acid (0.5-2.2) mmol/L Calcium 8.4 L (8.5-10.3) mg/dL Total Bilirubin 1.3 H (0.2-1.0) mg/dL AST 15 (10-42) IU/L ALT 13 (10-60) IU/L Alkaline Phosphatase 63 (42-121) IU/L Total Protein 6.8 (6.7-8.2) g/dL Albumin 3.2 (3.2-5.5) g/dL Globulin 3.6 (2.1-4.2) g/dL Albumin/Globulin Ratio 0.9 L (1.0-2.2) Lipase (22-51) U/L Vitamin B12 1352 H (180-914) pg/mL Urine Color Urine Clarity (CLEAR) Urine pH (5.0-7.5) PH Ur Specific [place] (1.002-1.030) Urine Protein (NEGATIVE) mg/dL Urine Glucose (UA) (NEGATIVE) mg/dL Urine Ketones (NEGATIVE) mg/dL Urine Occult Blood (NEGATIVE) Urine Nitrite (NEGATIVE) Urine Bilirubin (NEGATIVE) Urine Urobilinogen (NORMAL) E.U./dL Ur Leukocyte Esterase (NEGATIVE) Ur Microscopic Review Urine Culture Comments 10/03/19 10/03/19 10/03/19 Range/Units 17:05 16:52 14:00 WBC (4.8-10.8) x10^3/uL RBC (4.70-6.10) 10^6/uL Hgb (14.0-18.0) g/dL Hct (42.0-52.0) % MCV (80.0-94.0) fL MCH (27.0-31.0) pg MCHC (32.0-36.0) g/dL RDW (12.0-15.0) % Plt Count (130-450) 10^3/uL MPV (7.4-11.4) fL Neut # (Auto) (1.5-6.6) 10^3/uL Lymph # (Auto) (1.5-3.5) 10^3/uL [place] # (Auto) (0.0-1.0) 10^3/uL Eos # (Auto) (0.0-0.7) 10^3/uL Baso # (Auto) (0.0-0.1) 10^3/uL Absolute Nucleated RBC x10^3/uL Nucleated RBC % /100WBC PT (9.9-12.6) secs INR (0.8-1.2) Sodium 142 (135-145) mmol/L Potassium 3.5 (3.5-5.0) mmol/L Chloride 106 (101-111) mmol/L Carbon Dioxide 20 L (21-32) mmol/L Anion Gap 16.0 H (6-13) BUN 78 H (6-20) mg/dL Creatinine 1.9 H (0.6-1.2) mg/dL Estimated GFR (MDRD) 35 L (>89) Glucose 126 H (70-100) mg/dL Lactic Acid 1.1 (0.5-2.2) mmol/L Calcium 9.2 (8.5-10.3) mg/dL Total Bilirubin 1.0 (0.2-1.0) mg/dL AST 17 (10-42) IU/L ALT 13 (10-60) IU/L Alkaline Phosphatase 71 (42-121) IU/L Total Protein 8.5 H (6.7-8.2) g/dL Albumin 4.0 (3.2-5.5) g/dL Globulin 4.5 H (2.1-4.2) g/dL Albumin/Globulin Ratio 0.9 L (1.0-2.2) Lipase 29 (22-51) U/L Vitamin B12 (180-914) pg/mL Urine Color YELLOW Urine Clarity CLEAR (CLEAR) Urine pH 5.5 (5.0-7.5) PH Ur Specific [place] 1.025 (1.002-1.030) Urine Protein TRACE (NEGATIVE) mg/dL Urine Glucose (UA) NEGATIVE (NEGATIVE) mg/dL Urine Ketones TRACE (NEGATIVE) mg/dL Urine Occult Blood NEGATIVE (NEGATIVE) Urine Nitrite NEGATIVE (NEGATIVE) Urine Bilirubin NEGATIVE (NEGATIVE) Urine Urobilinogen 0.2 (NORMAL) (NORMAL) E.U./dL Ur Leukocyte Esterase NEGATIVE (NEGATIVE) Ur Microscopic Review NOT INDICATED Urine Culture Comments NOT INDICATED 10/03/19 10/03/19 Range/Units 14:00 14:00 WBC 10.7 (4.8-10.8) x10^3/uL RBC 5.42 (4.70-6.10) 10^6/uL Hgb 15.9 (14.0-18.0) g/dL Hct 48.3 (42.0-52.0) % MCV 89.1 (80.0-94.0) fL MCH 29.3 (27.0-31.0) pg MCHC 32.9 (32.0-36.0) g/dL RDW 13.6 (12.0-15.0) % Plt Count 365 (130-450) 10^3/uL MPV 10.8 (7.4-11.4) fL Neut # (Auto) 8.5 H (1.5-6.6) 10^3/uL Lymph # (Auto) 1.4 L (1.5-3.5) 10^3/uL [place] # (Auto) 0.7 (0.0-1.0) 10^3/uL Eos # (Auto) 0.0 (0.0-0.7) 10^3/uL Baso # (Auto) 0.0 (0.0-0.1) 10^3/uL Absolute Nucleated RBC 0.00 x10^3/uL Nucleated RBC % 0.0 /100WBC PT 14.2 H (9.9-12.6) secs INR 1.3 H (0.8-1.2) Sodium (135-145) mmol/L Potassium (3.5-5.0) mmol/L Chloride (101-111) mmol/L Carbon Dioxide (21-32) mmol/L Anion Gap (6-13) BUN (6-20) mg/dL Creatinine (0.6-1.2) mg/dL Estimated GFR (MDRD) (>89) Glucose (70-100) mg/dL Lactic Acid (0.5-2.2) mmol/L Calcium (8.5-10.3) mg/dL Total Bilirubin (0.2-1.0) mg/dL AST (10-42) IU/L ALT (10-60) IU/L Alkaline Phosphatase (42-121) IU/L Total Protein (6.7-8.2) g/dL Albumin (3.2-5.5) g/dL Globulin (2.1-4.2) g/dL Albumin/Globulin Ratio (1.0-2.2) Lipase (22-51) U/L Vitamin B12 (180-914) pg/mL Urine Color Urine Clarity (CLEAR) Urine pH (5.0-7.5) PH Ur Specific [place] (1.002-1.030) Urine Protein (NEGATIVE) mg/dL Urine Glucose (UA) (NEGATIVE) mg/dL Urine Ketones (NEGATIVE) mg/dL Urine Occult Blood (NEGATIVE) Urine Nitrite (NEGATIVE) Urine Bilirubin (NEGATIVE) Urine Urobilinogen (NORMAL) E.U./dL Ur Leukocyte Esterase (NEGATIVE) Ur Microscopic Review Urine Culture Comments - Current Medications Current Medications: Current Medications Generic Name Dose Route Start Last Admin Trade Name Freq PRN Reason Stop Dose Admin Piperacillin Sod/Tazobactam 100 mls @ 25 mls/hr 10/03/19 19:00 10/04/19 06:22 Sod 3.375 gm/ Sodium Chloride IV 25 mls/hr Q8HR [facility]LO Administration Sodium Chloride 1,000 mls @ 125 mls/hr 10/03/19 19:00 10/04/19 06:21 Normal Saline 0.9% IV 125 mls/hr .Q8H [facility]LO Administration Pantoprazole Sodium 40 mg 10/04/19 07:00 10/04/19 06:26 Protonix PO 40 mg QDAC PABLO Administration Sodium Chloride 10 ml 10/04/19 01:00 10/04/19 07:33 Normal Saline Flush 0.9% IVP Not Given 0100,0900,1700 P[facility]LO - Physical Exam General Appearance: positive: No acute distress (sitting in bed comfortably wathcing TV without issues. Able to hold conversation without discomfort/issues) Respiratory: positive: Breath sounds nml Cardiovascular: positive: Regular rate & rhythm Abdomen: positive: Other (mild diffuse tenderness with no BS, mild distention, n o peritnoeal sings). negative: Guarding, Rebound Extremities: positive: Full ROM Neurologic/Psychiatric: positive: Oriented x3, Mood/affect nml Impression/Plan - Problem List Problem List: 74 yo with free air of unknown source and obstructive findings of the small bowel on CT. His clinical status has unchanged overnight, recommend to continue with our plan of care of hydration and repeat abd/pelvis CT scan with oral and IV contrast. The patient has been discussed and handed off to Dr. Bean.
--- NOTE | 2019-10-04 11:32 | PHARMACY PROGRESS NOTE ---
- Best Possible Medication History Admit Date and Time: 10/03/19 1835 Processed by: Pharmacy Medication History completed: Yes Patient Interview: Pt interview ONLY source As the person ultimately responsible for medication therapy, providers are able to order a medication from an existing home medication list in [facility] via the "Reconcile Routine" prior to Confirmation of that medication by client support professional. Such practice is discouraged except when the physician, in their clinical judgment, deems that a medical need exists for a medication without regard to previous use.
--- NOTE | 2019-10-04 15:07 | XRAY Report ---
Reason: Confrim NG tube plaement Procedure Date: 10/04/2019 Accession Number: [id number] / [id number] Procedure: XR - Chest for Line Placement CPT Code: Final Report FULL RESULT: EXAM: CHEST RADIOGRAPHY EXAM DATE: 10/04/2019 02:36 PM. CLINICAL HISTORY: Confirm NG tube placement. Abdominal pain, vomiting, small bowel obstruction. COMPARISON: ABDOMEN/PELVIS W/O 10/03/2019 3:25 PM. TECHNIQUE: Upright AP view. FINDINGS: Lungs/Pleura: No focal opacities evident. No pleural effusion. No pneumothorax. Mediastinum: Within exam limitations, the cardiomediastinal contour is normal. Mild aortic arch calcification. Other: Nasogastric tube points toward the left in the gastric fundus with side port at the gastroesophageal junction. There is moderate gaseous distention of the stomach, incompletely visualized, as before. IMPRESSION: 1. Nasogastric tube in the gastric fundus with side port at the gastroesophageal junction. 2. Persistent moderate gaseous distention of the stomach. RADIA
--- NOTE | 2019-10-04 15:46 | PROVIDER PROGRESS NOTE ---
Subjective - Prog Note Date Prog Note Date: 10/04/19 Prog Note Time: 15:44 - Subjective Pt reports feeling: Improved Subjective: Patient's abdominal pain is minimal. His biggest complaint is not being able to sleep last night. However, he does admit that he is unable to tolerate anything besides water and is apprehensive to do so due to nausea Current Medications - Current Medications Current Medications: Medications Summary Active Medications Acetaminophen (Tylenol) 650 mg PO Q4HR PRN PRN Reason: Pain 1 to 4 Hydroxyzine Pamoate (Vistaril) 50 mg PO QPM PRN PRN Reason: Insomnia Piperacillin Sod/Tazobactam (Sod 3.375 gm/ Sodium Chloride) 100 mls @ 25 mls/hr IV Q8HR [facility] Last Admin: 10/04/19 13:44 Dose: 25 mls/hr Sodium Chloride (Normal Saline 0.9%) 1,000 mls @ 125 mls/hr IV .Q8H [facility] Last Admin: 10/04/19 13:44 Dose: 125 mls/hr Morphine Sulfate (Morphine (Carpuject)) 2 mg IVP Q2HR PRN PRN Reason: Pain 8 to 10 Ondansetron HCl (Zofran Inj) 4 mg IVP Q6HR PRN PRN Reason: Nausea / Vomiting Oxycodone HCl (Roxicodone) 5 mg PO Q4HR PRN PRN Reason: Pain 5 to 7 Pantoprazole Sodium (Protonix) 40 mg PO QDAC [facility] Last Admin: 10/04/19 06:26 Dose: 40 mg Prochlorperazine Edisylate (Compazine Inj) 10 mg IVP Q6HR PRN PRN Reason: Nausea / Vomiting Sodium Chloride (Normal Saline Flush 0.9%) 10 ml IVP PRN PRN PRN Reason: NEEDED PER PROVIDER ORDERS Sodium Chloride (Normal Saline Flush 0.9%) 10 ml IVP 0100,0900,1700 [facility] Last Admin: 10/04/19 07:33 Dose: Not Given No Known Home Medications 10/04/19 Objective - Vital Signs/Intake & Output Reviewed Vital Signs: Yes Vital Signs: Vital Signs x48h Temp Pulse Pulse Resp BP Pulse Ox 10/04/19 13:20 36.5 C 58 L 18 128/61 98 10/04/19 11:58 36.2 C L 66 18 97 10/04/19 07:51 36.2 C L 62 18 133/72 H 97 Intake & Output: Intake & Output 10/01/19 10/02/19 10/03/19 10/04/19 23:59 23:59 23:59 23:59 Intake Total 2500 1952.084 Output Total 775 Balance 2500 1177.084 - Objective General Appearance: positive: No acute distress, Alert, Mild distress ENT: positive: ENT inspection nml, Pharynx nml, No signs of dehydration Neck: positive: Nml inspection, Thyroid nml, No JVD Cardiovascular: positive: Regular rate & rhythm, No murmur, No gallop, Irregularly irregular Abdomen: positive: No organomegaly, Nml bowel sounds, Other (Mild abdominal tenderness worse at the periumbilical region) Skin: positive: Color nml, No rash, Warm Extremities: positive: Non-tender, No pedal edema Neurologic/Psychiatric: positive: Oriented x3, CN's nml (2-12), Mood/affect nml - Lab Results Fish Bones: 10/04/19 04:40 10/04/19 04:40 Other Labs: Lab Results x24hrs 10/04/19 10/04/19 10/04/19 Range/Units 08:58 04:40 04:40 WBC (4.8-10.8) x10^3/uL RBC (4.70-6.10) 10^6/uL Hgb (14.0-18.0) g/dL Hct (42.0-52.0) % MCV (80.0-94.0) fL MCH (27.0-31.0) pg MCHC (32.0-36.0) g/dL RDW (12.0-15.0) % Plt Count (130-450) 10^3/uL MPV (7.4-11.4) fL Sodium 148 H (135-145) mmol/L Potassium 3.6 (3.5-5.0) mmol/L Chloride 115 H (101-111) mmol/L Carbon Dioxide 22 (21-32) mmol/L Anion Gap 11.0 (6-13) BUN 54 H (6-20) mg/dL Creatinine 1.6 H (0.6-1.2) mg/dL Estimated GFR (MDRD) 43 L (>89) Glucose 93 (70-100) mg/dL Lactic Acid 0.7 (0.5-2.2) mmol/L Calcium 8.4 L (8.5-10.3) mg/dL Total Bilirubin 1.3 H (0.2-1.0) mg/dL AST 15 (10-42) IU/L ALT 13 (10-60) IU/L Alkaline Phosphatase 63 (42-121) IU/L Total Protein 6.8 (6.7-8.2) g/dL Albumin 3.2 (3.2-5.5) g/dL Globulin 3.6 (2.1-4.2) g/dL Albumin/Globulin Ratio 0.9 L (1.0-2.2) Vitamin B12 1352 H (180-914) pg/mL Urine Color Urine Clarity (CLEAR) Urine pH (5.0-7.5) PH Ur Specific [place] (1.002-1.030) Urine Protein (NEGATIVE) mg/dL Urine Glucose (UA) (NEGATIVE) mg/dL Urine Ketones (NEGATIVE) mg/dL Urine Occult Blood (NEGATIVE) Urine Nitrite (NEGATIVE) Urine Bilirubin (NEGATIVE) Urine Urobilinogen (NORMAL) E.U./dL Ur Leukocyte Esterase (NEGATIVE) Ur Microscopic Review Urine Culture Comments 10/04/19 10/03/19 10/03/19 Range/Units 04:40 17:05 16:52 WBC 11.0 H (4.8-10.8) x10^3/uL RBC 4.64 L (4.70-6.10) 10^6/uL Hgb 13.6 L (14.0-18.0) g/dL Hct 42.4 (42.0-52.0) % MCV 91.4 (80.0-94.0) fL MCH 29.3 (27.0-31.0) pg MCHC 32.1 (32.0-36.0) g/dL RDW 13.8 (12.0-15.0) % Plt Count 276 (130-450) 10^3/uL MPV 10.3 (7.4-11.4) fL Sodium (135-145) mmol/L Potassium (3.5-5.0) mmol/L Chloride (101-111) mmol/L Carbon Dioxide (21-32) mmol/L Anion Gap (6-13) BUN (6-20) mg/dL Creatinine (0.6-1.2) mg/dL Estimated GFR (MDRD) (>89) Glucose (70-100) mg/dL Lactic Acid 1.1 (0.5-2.2) mmol/L Calcium (8.5-10.3) mg/dL Total Bilirubin (0.2-1.0) mg/dL AST (10-42) IU/L ALT (10-60) IU/L Alkaline Phosphatase (42-121) IU/L Total Protein (6.7-8.2) g/dL Albumin (3.2-5.5) g/dL Globulin (2.1-4.2) g/dL Albumin/Globulin Ratio (1.0-2.2) Vitamin B12 (180-914) pg/mL Urine Color YELLOW Urine Clarity CLEAR (CLEAR) Urine pH 5.5 (5.0-7.5) PH Ur Specific [place] 1.025 (1.002-1.030) Urine Protein TRACE (NEGATIVE) mg/dL Urine Glucose (UA) NEGATIVE (NEGATIVE) mg/dL Urine Ketones TRACE (NEGATIVE) mg/dL Urine Occult Blood NEGATIVE (NEGATIVE) Urine Nitrite NEGATIVE (NEGATIVE) Urine Bilirubin NEGATIVE (NEGATIVE) Urine Urobilinogen 0.2 (NORMAL) (NORMAL) E.U./dL Ur Leukocyte Esterase NEGATIVE (NEGATIVE) Ur Microscopic Review NOT INDICATED Urine Culture Comments NOT INDICATED - Diagnostic Imaging Diagnostic Imaging Results: positive: Final report reviewed, Read independently Assessment/Plan - Problem List (1) Perforated abdominal viscus Impression: Discussed with general surgery. Consultation greatly appreciated. Plan is for optimizing renal function with IV fluids, and repeat with contrast in 1 to 2 days. At this point, underlying etiology is uncertain, so we will continue empiric Zosyn for antibiotic coverage. Continue to include inflammatory bowel disease on differential, but withhold trial of steroids until further diagnostic support can be obtained. (2) Small bowel obstruction Impression: As above, seen on CT scan. Placed NG tube with Continuous wall suction,Continue to monitor, Repeat CT scan in 1 to 2 days. (3) Acute kidney injury Impression: Secondary to dehydration from previous nausea and vomiting with limited p.o. intake. Slowly improving with IV hydration.
[2019-10-04] MEDS: hydrOXYzine PAMOATE 25 MG CAPSULE PO PRN (21:06)
[2019-10-05] MEDS: SODIUM CHLORIDE FLUSH 0.9% 10 ML SYRINGE IVP SCH ×3 (00:45→16:12)
[2019-10-05] MEDS: SODIUM CHLORIDE 0.9% 1,000 ML IV SCH (04:37)
[2019-10-05 04:52] LABS: MEAN CORPUSCULAR HGB CONC 31.6 g/dL (32.0-36.0); RED CELL DISTRIBUTION WIDTH 13.8 % (12.0-15.0)
[2019-10-05 04:55] LABS: HGB - HEMOGLOBIN 13.7 g/dL (14.0-18.0); MEAN CORPUSCULAR HEMOGLOBIN 30.1 pg (27.0-31.0); MEAN CORPUSCULAR VOLUME 95.2 fL (80.0-94.0); MEAN PLATELET VOLUME 10.4 fL (7.4-11.4); RED BLOOD COUNT 4.55 10^6/uL (4.70-6.10); WHITE BLOOD COUNT 9.7 x10^3/uL (4.8-10.8)
[2019-10-05 05:11] LABS: ALBUMIN 2.9 g/dL (3.2-5.5); ALBUMIN/GLOBULIN RATIO 0.8 (1.0-2.2); BILIRUBIN,TOTAL 0.8 mg/dL (0.2-1.0); CALCIUM 8.4 mg/dL (8.5-10.3); CREATININE 1.5 mg/dL (0.6-1.2); TOTAL PROTEIN 6.4 g/dL (6.7-8.2)
[2019-10-05] MEDS: PIPERACILLIN/TAZOBACTAM 3.375 GM in SODIUM CHLORIDE 0.9% MINIBAG 100 ML IV SCH ×3 (06:03→21:45)
[2019-10-05] MEDS: PANTOPRAZOLE 40 MG TABLET PO SCH (06:05)
[2019-10-05] MEDS: DEXTROSE 5%-0.45% NACL 1,000 ML IV SCH ×2 (07:06→16:11)
[2019-10-05] MEDS ORDERED: SODIUM CHLORIDE 0.9% 1,000 ML IV ONE (08:15)
[2019-10-05] MEDS ORDERED: IOVERSOL 320 100 ML VIAL IVP ONE ×2 (08:40→10:19)
[2019-10-05] MEDS ORDERED: IOVERSOL 320 50 ML VIAL ONE (08:40)
[2019-10-05 09:38] LABS: CRP - C-REACTIVE PROTEIN 6.4 mg/dL (0-1.0)
[2019-10-05] MEDS ORDERED: IOVERSOL 320 50 ML VIAL PO ONE (10:19)
[2019-10-05] MEDS: MORPHINE 2 MG/ML CARPUJECT IVP PRN ×2 (11:10→21:43)
--- NOTE | 2019-10-05 11:15 | CT Report ---
Reason: Abdominal pain, SBO, possible perf Procedure Date: 10/05/2019 Accession Number: [id number] / [id number] Procedure: CT - Abdomen/Pelvis W CPT Code: Final Report FULL RESULT: EXAM: CT ABDOMEN AND PELVIS EXAM DATE: 10/05/2019 10:17 AM. CLINICAL HISTORY: Abdominal pain, small bowel obstruction, possible perforation. COMPARISONS: ABDOMEN/PELVIS W/O 10/03/2019 3:25 PM. TECHNIQUE: Routine helical CT imaging was performed through the abdomen and pelvis. IV contrast: 90 mL of Optiray 320. Enteric contrast: Positive. Reconstructions: Coronal and sagittal. In accordance with CT protocol optimization, one or more of the following dose reduction techniques were utilized for this exam: automated exposure control, adjustment of mA and/or KV based on patient size, or use of iterative reconstructive technique. FINDINGS: Lung Bases: Subpleural right lower lobe opacities are more prominent. Heart size upper normal. Coronary artery calcified plaque. Contrast present in the esophagus. Liver: Hepatic low-attenuation lesions are again seen, better seen on the current study with the largest in the left lobe measuring 8 mm. Patent portal vein. Gallbladder/Bile Ducts: Gallbladder is moderately distended. No biliary dilatation. Spleen: Normal. Pancreas: Pancreatic parenchymal volume loss. No peripancreatic edema. Adrenal Glands: Normal. Kidneys: Multifocal renal parenchymal scarring and volume loss again seen. No hydronephrosis. Peritoneal Cavity/Bowel: Orogastric tube present with the tip in the proximal stomach. Contrast present within the stomach and proximal small bowel which is not significant dilated. The mid distal small bowel is markedly dilated and there is mesenteric edema with significant progression. There is swirling of the mesentery in the mid abdomen. The cecum is seen in the left mid upper abdomen and is markedly dilated measuring in transverse extent up to 9.5-10 cm which has progressed. There is swirling of the vessels at the base of the cecum with marked narrowing of vessels which extend to the cecum and distal small bowel. The terminal ileum is present dilated and extending to the cecum and the left mid to upper abdomen. The distal colon is decompressed in particular from the mid proximal ascending colon distally. Swirling of vessels is seen at the base of the cecum and terminal ileum. 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 Findings are significantly more prominent with significantly more dilatation of the distal small bowel and cecum in the interval. There is significantly more volume of upper abdominal, left lower quadrant and posterior abdominal free fluid. There is progression of mesenteric edema. Free fluid along the liver is also new in the interval. The pneumoperitoneum noted has significantly decreased in volume in the interval. Pelvic Organs: Small volume pelvic free fluid. Urinary bladder is unremarkable. Within the urinary bladder posteriorly is a small volume of contrast versus calculi/debris. No pelvic adenopathy. Vasculature: Vascular calcifications with extensive noncalcified plaque in the abdominal aorta. Infrarenal abdominal aorta is lobular and mildly prominent measuring up to 3 cm as before. Bones: Degenerative changes of the lower thoracic and lumbar spine. Dextroscoliosis of the lumbar spine. Other: None. IMPRESSION: 1. 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 2. Progression of mesenteric edema and free fluid in the interval. 3. Decreased volume of pneumoperitoneum. 4. Orogastric tube present with the tip in the stomach. Findings discussed with Dr. Bean following the study on 10/05/2019. RADIA
--- NOTE | 2019-10-05 11:19 | ANESTHESIA ---
Pre-Anesthesia VS, & Labs - Diagnosis Abdominal pain, free air - Procedure exploratory laparotomy Vital Signs: Temp Pulse Resp BP Pulse Ox 36.2 C L 48 L 20 127/58 L 98 10/05/19 07:54 10/05/19 07:54 10/05/19 07:54 10/05/19 07:54 10/05/19 07:54 Height 5 ft 10 in Weight (kg) 58.5 kg Body Mass Index 18.5 - NPO >8 hours - Lab Results Current Lab Results: Laboratory Tests 10/05/19 04:49: Iron 37 L, TIBC 231 L, % Saturation 16 L, Transferrin 165 L, C- Reactive Protein 6.4 H 10/05/19 04:20: Vitamin B12 1288 H 10/05/19 04:20: Sodium 148 H, Potassium 3.7, Chloride 120 H*, Carbon Dioxide 19 L, Anion Gap 9.0, BUN 40 H, Creatinine 1.5 H, Estimated GFR (MDRD) 46 L, Glucose 67 L, Calcium 8.4 L, Total Bilirubin 0.8, AST 19, ALT 13, Alkaline Phosphatase 58, Total Protein 6.4 L, Albumin 2.9 L, Globulin 3.5, Albumin/Globulin Ratio 0.8 L 10/05/19 04:20: WBC 9.7, RBC 4.55 L, Hgb 13.7 L, Hct 43.3, MCV 95.2 H, MCH 30.1, MCHC 31.6 L, RDW 13.8, Plt Count 292, MPV 10.4 10/04/19 08:58: Lactic Acid 0.7 10/04/19 04:40: 25-OH Vitamin D Total 24 L 10/04/19 04:40: Vitamin B12 1352 H 10/04/19 04:40: Sodium 148 H, Potassium 3.6, Chloride 115 H, Carbon Dioxide 22, Anion Gap 11.0, BUN 54 H, Creatinine 1.6 H, Estimated GFR (MDRD) 43 L, Glucose 93, Calcium 8.4 L, Total Bilirubin 1.3 H, AST 15, ALT 13, Alkaline Phosphatase 63, Total Protein 6.8, Albumin 3.2, Globulin 3.6, Albumin/Globulin Ratio 0.9 L 10/04/19 04:40: WBC 11.0 H, RBC 4.64 L, Hgb 13.6 L, Hct 42.4, MCV 91.4, MCH 29.3, MCHC 32.1, RDW 13.8, Plt Count 276, MPV 10.3 10/03/19 16:52: Lactic Acid 1.1 10/03/19 14:00: Sodium 142, Potassium 3.5, Chloride 106, Carbon Dioxide 20 L, Anion Gap 16.0 H, BUN 78 H, Creatinine 1.9 H, Estimated GFR (MDRD) 35 L, Glucose 126 H, Calcium 9.2, Total Bilirubin 1.0, AST 17, ALT 13, Alkaline Phosphatase 71, Total Protein 8.5 H, Albumin 4.0, Globulin 4.5 H, Albumin/Globulin Ratio 0.9 L, Lipase 29 10/03/19 14:00: PT 14.2 H, INR 1.3 H 10/03/19 14:00: WBC 10.7, RBC 5.42, Hgb 15.9, Hct 48.3, MCV 89.1, MCH 29.3, MCHC 32.9, RDW 13.6, Plt Count 365, MPV 10.8, Neut # (Auto) 8.5 H, Lymph # (Auto) 1.4 L, [place] # (Auto) 0.7, Eos # (Auto) 0.0, Baso # (Auto) 0.0, Absolute Nucleated RBC 0.00, Nucleated RBC % 0.0 Fish Bones: 10/05/19 04:20 10/05/19 04:20 Home Medications and Allergies Home Medications: Ambulatory Orders No Known Home Medications 10/04/19 Active Medications Acetaminophen (Tylenol) 650 mg PO Q4HR PRN PRN Reason: Pain 1 to 4 Hydroxyzine Pamoate (Vistaril) 50 mg PO QPM PRN PRN Reason: Insomnia Last Admin: 10/04/19 21:06 Dose: 50 mg Piperacillin Sod/Tazobactam (Sod 3.375 gm/ Sodium Chloride) 100 mls @ 25 mls/hr IV Q8HR [facility] Last Infusion: 10/05/19 10:16 Dose: 25 mls/hr Dextrose/Sodium Chloride (D5.45ns) 1,000 mls @ 100 mls/hr IV .Q10H [facility] Last Infusion: 10/05/19 10:16 Dose: 100 mls/hr Morphine Sulfate (Morphine (Carpuject)) 4 mg IVP Q3HR PRN PRN Reason: Pain 8 to 10 Last Admin: 10/05/19 11:10 Dose: 4 mg Ondansetron HCl (Zofran Inj) 4 mg IVP Q6HR PRN PRN Reason: Nausea / Vomiting Oxycodone HCl (Roxicodone) 5 mg PO Q4HR PRN PRN Reason: Pain 5 to 7 Pantoprazole Sodium (Protonix) 40 mg PO QDAC [facility] Last Admin: 10/05/19 06:05 Dose: 40 mg Prochlorperazine Edisylate (Compazine Inj) 10 mg IVP Q6HR PRN PRN Reason: Nausea / Vomiting Sodium Chloride (Normal Saline Flush 0.9%) 10 ml IVP PRN PRN PRN Reason: NEEDED PER PROVIDER ORDERS Sodium Chloride (Normal Saline Flush 0.9%) 10 ml IVP 0100,0900,1700 [facility] Last Admin: 10/05/19 07:43 Dose: 10 ml No Known Home Medications 10/04/19 Allergies/Adverse Reactions: Allergies Allergy/AdvReac Type Severity Reaction Status Date / Time No Known Drug Allergies Allergy Verified 10/03/19 13:56 Anes History & Medical History - Anesthetic History Anesthesia Complications: reports: No previous complications - Medical History Cardiovascular: reports: None Pulmonary: reports: None Gastrointestinal: reports: None Urinary: reports: None Neuro: reports: TIA Musculoskeletal: reports: None Endocrine/Autoimmune: reports: None Blood Disorders: reports: None Skin: reports: None Smoking Status: Current every day smoker (1/2 pack per day. Smoked since age of 18) Psychosocial: reports: Alcohol (1 Beer every night with dinner) - Surgical History Eyes Ears Nose Throat (EENT): Other (ORIF mandible fracture) Exam General: Alert, Oriented x3, Cooperative, No acute distress Dental: Dentures full Upper, Dentures full Lower Mouth Openin Fingerbreadth Neck Mobility: Normal Mallampati classification: II Thyromental Distance: 4-6 cm Mental/Cognitive Status: Alert/Oriented X3, Normal for patient Plan Anesthesia Type: General Consent for Procedure(s) Verified and Reviewed: Yes Code Status: Attempt Resuscitation ASA classification: 3-Severe systemic disease Is this case an emergency?: Yes
[2019-10-05] MEDS ORDERED: BUPIVACAINE 0.5% PF 10 ML VIAL ONE (12:13)
[2019-10-05] MEDS ORDERED: LIDOCAINE 1%-EPI 1:100000 20 ML MDV ONE (12:13)
--- NOTE | 2019-10-05 12:44 | PROVIDER PROGRESS NOTE ---
Subjective - General Admit Date: 10/03/19 - Other Other Information/Narrative: More distended and uncomfortable today. NGT with minimal output. Is on regular rather than intermittent suction for unclear amount of time; I changed over in room. Anticipate OR today given his clinical picture; he is heading shortly for CT A/P w/ IV contrast. Still no leukocytosis or concerning vital signs. Objective - Patient Data Reviewed Vital Signs: Yes Vital Signs: Vital Signs x48h Temp Pulse Resp BP Pulse Ox 10/05/19 11:39 36.5 C 49 L 20 129/59 L 100 10/05/19 07:54 36.2 C L 48 L 20 127/58 L 98 10/05/19 05:00 36.4 C L 56 L 18 143/75 H 100 Weight: Weight 10/03/19 10/04/19 10/05/19 23:59 23:59 23:59 Weight (kg) 58.5 kg Intake & Output: Intake and Output Totals x24h 10/03/19 10/04/19 10/05/19 23:59 23:59 23:59 Intake Total 2500 2918.334 3401.250 Output Total 1375 750 Balance 2500 2482.553 5204.250 - Lab Results Lab Results: 10/05/19 04:20 10/05/19 04:20 Other Lab Results: Lab Results x24hrs 10/05/19 10/05/19 10/05/19 Range/Units 04:49 04:20 04:20 WBC (4.8-10.8) x10^3/uL RBC (4.70-6.10) 10^6/uL Hgb (14.0-18.0) g/dL Hct (42.0-52.0) % MCV (80.0-94.0) fL MCH (27.0-31.0) pg MCHC (32.0-36.0) g/dL RDW (12.0-15.0) % Plt Count (130-450) 10^3/uL MPV (7.4-11.4) fL Sodium 148 H (135-145) mmol/L Potassium 3.7 (3.5-5.0) mmol/L Chloride 120 H* (101-111) mmol/L Carbon Dioxide 19 L (21-32) mmol/L Anion Gap 9.0 (6-13) BUN 40 H (6-20) mg/dL Creatinine 1.5 H (0.6-1.2) mg/dL Estimated GFR (MDRD) 46 L (>89) Glucose 67 L (70-100) mg/dL Calcium 8.4 L (8.5-10.3) mg/dL Iron 37 L (45-182) ug/dL TIBC 231 L (250-450) ug/dL % Saturation 16 L (20-50) % Transferrin 165 L (180-329) mg/dL Total Bilirubin 0.8 (0.2-1.0) mg/dL AST 19 (10-42) IU/L ALT 13 (10-60) IU/L Alkaline Phosphatase 58 (42-121) IU/L C-Reactive Protein 6.4 H (0-1.0) mg/dL Total Protein 6.4 L (6.7-8.2) g/dL Albumin 2.9 L (3.2-5.5) g/dL Globulin 3.5 (2.1-4.2) g/dL Albumin/Globulin Ratio 0.8 L (1.0-2.2) Vitamin B12 1288 H (180-914) pg/mL 25-OH Vitamin D Total (30-100) ng/mL 10/05/19 10/04/19 Range/Units 04:20 04:40 WBC 9.7 (4.8-10.8) x10^3/uL RBC 4.55 L (4.70-6.10) 10^6/uL Hgb 13.7 L (14.0-18.0) g/dL Hct 43.3 (42.0-52.0) % MCV 95.2 H (80.0-94.0) fL MCH 30.1 (27.0-31.0) pg MCHC 31.6 L (32.0-36.0) g/dL RDW 13.8 (12.0-15.0) % Plt Count 292 (130-450) 10^3/uL MPV 10.4 (7.4-11.4) fL Sodium (135-145) mmol/L Potassium (3.5-5.0) mmol/L Chloride (101-111) mmol/L Carbon Dioxide (21-32) mmol/L Anion Gap (6-13) BUN (6-20) mg/dL Creatinine (0.6-1.2) mg/dL Estimated GFR (MDRD) (>89) Glucose (70-100) mg/dL Calcium (8.5-10.3) mg/dL Iron (45-182) ug/dL TIBC (250-450) ug/dL % Saturation (20-50) % Transferrin (180-329) mg/dL Total Bilirubin (0.2-1.0) mg/dL AST (10-42) IU/L ALT (10-60) IU/L Alkaline Phosphatase (42-121) IU/L C-Reactive Protein (0-1.0) mg/dL Total Protein (6.7-8.2) g/dL Albumin (3.2-5.5) g/dL Globulin (2.1-4.2) g/dL Albumin/Globulin Ratio (1.0-2.2) Vitamin B12 (180-914) pg/mL 25-OH Vitamin D Total 24 L (30-100) ng/mL - Current Medications Current Medications: Current Medications Generic Name Dose Route Start Last Admin Trade Name Freq PRN Reason Stop Dose Admin Hydroxyzine Pamoate 50 mg 10/04/19 13:57 10/04/19 21:06 Vistaril PO 50 mg QPM PRN Administration Insomnia Piperacillin Sod/Tazobactam 100 mls @ 25 mls/hr 10/03/19 19:00 10/05/19 10:16 Sod 3.375 gm/ Sodium Chloride IV 25 mls/hr Q8HR [facility] Infusion Dextrose/Sodium Chloride 1,000 mls @ 100 mls/hr 10/05/19 07:00 10/05/19 10:16 D5.45ns IV 100 mls/hr .Q10H [facility] Infusion Morphine Sulfate 4 mg 10/05/19 08:07 10/05/19 11:10 Morphine (Carpuject) IVP 4 mg Q3HR PRN Administration Pain 8 to 10 Pantoprazole Sodium 40 mg 10/04/19 07:00 10/05/19 06:05 Protonix PO 40 mg QDAC [facility]LO Administration Sodium Chloride 10 ml 10/04/19 01:00 10/05/19 07:43 Normal Saline Flush 0.9% IVP 10 ml 0100,0900,1700 [facility] Administration - Physical Exam Comments/Other: AAO, NAD but uncomfortable, male of healthy weight EOMI, MMM unlabored RA NGT with green, low volume output abd soft but more distended, more tender but no peritoneal signs [place] Impression/Plan - Problem List Problem List: - CT A/P shows clear cecal volvulous --> discussed with pt, will proceed urgently to OR for ex lap and right colectomy, with or without anastomosis and/or ileostomy depending on bowel viability --> pt with poor nutrition for 10-12 days and history of smoking so higher chance of diversion --> all R/B/A discussed and pt wishes to proceed - anticipate post op ileus, counseled pt to expect several more days in hospital prior to d/c - will plan nutrition depending on surgery findings and resultant anatomy
[2019-10-05] MEDS ORDERED: BUPIVACAINE 0.5% PF 30 ML VIAL INFIL ONE ×2 (13:20)
[2019-10-05] MEDS ORDERED: LACTATED RINGERS 1,000 ML IV ONE (13:20)
[2019-10-05] MEDS ORDERED: LIDOCAINE 1%-EPI 1:100000 20 ML MDV SUBQ ONE ×2 (14:04)
--- NOTE | 2019-10-05 14:10 | PROVIDER PROGRESS NOTE ---
Subjective - Prog Note Date Prog Note Date: 10/05/19 Prog Note Time: 14:08 - Subjective Pt reports feeling: Worse (Abdominal pain became worse around 6:30 AM, A.m. rounds, complaining of 8 out of 10 pain, Abdominal pain is generalized and difficult to localize) Current Medications - Current Medications Current Medications: Active Medications Acetaminophen (Tylenol) 650 mg PO Q4HR PRN PRN Reason: Pain 1 to 4 Hydroxyzine Pamoate (Vistaril) 50 mg PO QPM PRN PRN Reason: Insomnia Last Admin: 10/04/19 21:06 Dose: 50 mg Piperacillin Sod/Tazobactam (Sod 3.375 gm/ Sodium Chloride) 100 mls @ 25 mls/hr IV Q8HR [facility] Last Infusion: 10/05/19 13:54 Dose: Infused Dextrose/Sodium Chloride (D5.45ns) 1,000 mls @ 100 mls/hr IV .Q10H [facility] Last Infusion: 10/05/19 10:16 Dose: 100 mls/hr Morphine Sulfate (Morphine (Carpuject)) 4 mg IVP Q3HR PRN PRN Reason: Pain 8 to 10 Last Admin: 10/05/19 11:10 Dose: 4 mg Ondansetron HCl (Zofran Inj) 4 mg IVP Q6HR PRN PRN Reason: Nausea / Vomiting Oxycodone HCl (Roxicodone) 5 mg PO Q4HR PRN PRN Reason: Pain 5 to 7 Pantoprazole Sodium (Protonix) 40 mg PO QDAC [facility] Last Admin: 10/05/19 06:05 Dose: 40 mg Prochlorperazine Edisylate (Compazine Inj) 10 mg IVP Q6HR PRN PRN Reason: Nausea / Vomiting Sodium Chloride (Normal Saline Flush 0.9%) 10 ml IVP PRN PRN PRN Reason: NEEDED PER PROVIDER ORDERS Sodium Chloride (Normal Saline Flush 0.9%) 10 ml IVP 0100,0900,1700 [facility] Last Admin: 10/05/19 07:43 Dose: 10 ml No Known Home Medications 10/04/19 Objective - Vital Signs/Intake & Output Reviewed Vital Signs: Yes Vital Signs: Vital Signs x48h Temp Pulse Resp BP Pulse Ox 10/05/19 11:39 36.5 C 49 L 20 129/59 L 100 10/05/19 07:54 36.2 C L 48 L 20 127/58 L 98 Intake & Output: Intake & Output 10/02/19 10/03/19 10/04/19 10/05/19 23:59 23:59 23:59 23:59 Intake Total 2500 2918.334 3428.750 Output Total 1375 1050 Balance 2500 9401.701 8851.750 - Objective General Appearance: positive: No acute distress Eyes Bilateral: positive: Normal inspection ENT: positive: ENT inspection nml, Pharynx nml Neck: positive: Nml inspection, Thyroid nml, No JVD Respiratory: positive: Chest non-tender, No respiratory distress, Breath sounds nml Abdomen: positive: Tenderness Neurologic/Psychiatric: positive: CN's nml (2-12) - Lab Results Fish Bones: 10/05/19 04:20 10/05/19 04:20 Other Labs: Lab Results x24hrs 10/05/19 10/05/19 10/05/19 Range/Units 04:49 04:20 04:20 WBC (4.8-10.8) x10^3/uL RBC (4.70-6.10) 10^6/uL Hgb (14.0-18.0) g/dL Hct (42.0-52.0) % MCV (80.0-94.0) fL MCH (27.0-31.0) pg MCHC (32.0-36.0) g/dL RDW (12.0-15.0) % Plt Count (130-450) 10^3/uL MPV (7.4-11.4) fL Sodium 148 H (135-145) mmol/L Potassium 3.7 (3.5-5.0) mmol/L Chloride 120 H* (101-111) mmol/L Carbon Dioxide 19 L (21-32) mmol/L Anion Gap 9.0 (6-13) BUN 40 H (6-20) mg/dL Creatinine 1.5 H (0.6-1.2) mg/dL Estimated GFR (MDRD) 46 L (>89) Glucose 67 L (70-100) mg/dL Calcium 8.4 L (8.5-10.3) mg/dL Iron 37 L (45-182) ug/dL TIBC 231 L (250-450) ug/dL % Saturation 16 L (20-50) % Transferrin 165 L (180-329) mg/dL Total Bilirubin 0.8 (0.2-1.0) mg/dL AST 19 (10-42) IU/L ALT 13 (10-60) IU/L Alkaline Phosphatase 58 (42-121) IU/L C-Reactive Protein 6.4 H (0-1.0) mg/dL Total Protein 6.4 L (6.7-8.2) g/dL Albumin 2.9 L (3.2-5.5) g/dL Globulin 3.5 (2.1-4.2) g/dL Albumin/Globulin Ratio 0.8 L (1.0-2.2) Vitamin B12 1288 H (180-914) pg/mL 25-OH Vitamin D Total (30-100) ng/mL 10/05/19 10/04/19 Range/Units 04:20 04:40 WBC 9.7 (4.8-10.8) x10^3/uL RBC 4.55 L (4.70-6.10) 10^6/uL Hgb 13.7 L (14.0-18.0) g/dL Hct 43.3 (42.0-52.0) % MCV 95.2 H (80.0-94.0) fL MCH 30.1 (27.0-31.0) pg MCHC 31.6 L (32.0-36.0) g/dL RDW 13.8 (12.0-15.0) % Plt Count 292 (130-450) 10^3/uL MPV 10.4 (7.4-11.4) fL Sodium (135-145) mmol/L Potassium (3.5-5.0) mmol/L Chloride (101-111) mmol/L Carbon Dioxide (21-32) mmol/L Anion Gap (6-13) BUN (6-20) mg/dL Creatinine (0.6-1.2) mg/dL Estimated GFR (MDRD) (>89) Glucose (70-100) mg/dL Calcium (8.5-10.3) mg/dL Iron (45-182) ug/dL TIBC (250-450) ug/dL % Saturation (20-50) % Transferrin (180-329) mg/dL Total Bilirubin (0.2-1.0) mg/dL AST (10-42) IU/L ALT (10-60) IU/L Alkaline Phosphatase (42-121) IU/L C-Reactive Protein (0-1.0) mg/dL Total Protein (6.7-8.2) g/dL Albumin (3.2-5.5) g/dL Globulin (2.1-4.2) g/dL Albumin/Globulin Ratio (1.0-2.2) Vitamin B12 (180-914) pg/mL 25-OH Vitamin D Total 24 L (30-100) ng/mL - Diagnostic Imaging Diagnostic Imaging Results: positive: Final report reviewed Assessment/Plan - Problem List (1) Perforated abdominal viscus Impression: 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 Patient will be taken to the OR for Ex lap, possible ileostomy with versus without anastomosis per general surgery. Consultation greatly appreciated, will continue to follow with postoperative course to be determined pending findings in the OR. (2) Small bowel obstruction Impression: As above (3) Acute kidney injury Impression: Slightly improved, will continue to monitor and will monitor contrast used to further guide plan on today's abdominal CT (4) Hypernatremia Impression: Sodium of 148, likely related to continue ascites normal saline infusion, switch to Half-normal saline overnight. Continue to monitor, consider D5 infusion if continues to climb
--- NOTE | 2019-10-05 15:11 | OPERATIVE REPORT ---
Operative Report - General Admit Date: 10/03/19 Pre-Op Diagnosis: Cecal Volvulous; Pneumoperitoneum Procedure Performed: Right Hemicolectomy with Ileocecal Anastomosis Post Op Diagnosis: same - Procedure Note Primary Surgeon: Ketan Bean MD Secondary Surgeon: Mark Gardner MD Anesthesia Provider: Tata Carmona CRNA Anesthesia Technique: General ET tube Pathology: right colon IV Fluids (mL): 1,500 (crystalloid) Estimated Blood Loss (mL): 30 Indications: 74yo M with abdominal pain and new distension, concern for obstruction on initial non-contrast CT with worsening clinical picture, low volume NGT output, and repeat CT showing cecal volvulous. Pt had minimal pneumoperitoneum on his initial scan which had resolved on his second. He understands that our plan is to remove the right colon and possibly place end or diverting ileostomy depending on bowel viability. He is a smoker and has had poor PO intake for the last nearly two weeks so will divert if concerned for adequate healing. All risks, benefits, and alternatives discussed and pt wishes to proceed. Findings: cecal volvulous with severely dilated cecum with focal perforation, no necrosis or ischemia and low volume contamination; healthy and vascularized tissue for anastomosis Complications: none - Other Other Information/Narrative: The patient was taken to the operating room and placed on the operating table in supine position. General anesthesia was induced without complications. The abdomen was prepped and draped in the usual sterile fashion. A timeout is performed with the team present. A midline incision is made with a 10 blade scalpel and this was carried down through the subcutaneous tissues with electrocautery. The peritoneum is carefully entered due to the hugely dilated underlying bowel. Once in, pale yellow reactive fluid is suctioned free. The dilated cecum is readily visible and is viable. No necrosis or ischemia is noted. Gentle mobilization is undertaken to deliver the cecum from the abdominal cavity and untwist the mesentery. Upon moving the cecum, yellow liquid stool is noted from a focal perforation of the cecal wall. Some of the liquid stool and gases are drained from this to alleviate pressure and allow for easier manipulation before placing a figure of eight stitch to close the hole. The mesentery is then fully untwisted. No areas of ischemia or necrosis are seen. A self-retaining retractor system was placed and dissection begun along the right Line of Toldt to release the cecum and right colon. This was carried up towards the flexure and healthy, normal colon is quickly encountered and sufficiently mobilized. The cecum and right colon were well away from the retroperitoneum so the ureter is not encountered in the limited dissection needed. A site was chosen and the colon divided with a linear SUZAN stapler with a 75mm tissue load. The mesentery was then divided with a ligasure device, ensuring hemostasis. The terminal ileum was then divided using a stapler and the specimen, being now fully released, was passed off the field. Both bowel ends were noted to be well vascularized and not extensively dilated. These easily came together with no tension. A side to side anastomosis was made using a 75mm tissue load to connect the anti-mesenteric borders. No active bleeding w as noted and the bowel remained patent after another staple load was used to close the open ends. The ends were healthy and viable with strong blood supply and the anastomosis patent. A 3-0 silk stitch was placed at the base of the staple line to offload tension. No need for diverting ileostomy was seen. Gloves were then changed. The abdomen is then thoroughly irrigated and free fluid suctioned. Hemostasis was ensured. Local anesthesia is injected laterally along the lateral musculature. The fascia was then closed using an 0- PDS looped suture in a running fashion. The subcutaneous tissues were irrigated and dried. The skin was re-approximated using skin ron. The abdomen was cleaned and dried and a sterile dressing was applied. The patient was awakened and taken to the PACU in stable condition. All counts were correct at the end of the procedure. Dr. Gardner acted as a first line supervisor in this case for assistance with exposure and creation of anastomosis; he did not perform independent procedures.
[2019-10-05] MEDS ORDERED: LACTATED RINGERS 500 ML IV ONE (19:33)
[2019-10-06] MEDS: SODIUM CHLORIDE FLUSH 0.9% 10 ML SYRINGE IVP SCH ×3 (00:36→15:59)
[2019-10-06] MEDS: DEXTROSE 5%-0.45% NACL 1,000 ML IV SCH ×3 (03:01→22:39)
[2019-10-06] MEDS: MORPHINE 2 MG/ML CARPUJECT IVP PRN ×4 (03:06→21:55)
[2019-10-06 05:20] LABS: HGB - HEMOGLOBIN 14.1 g/dL (14.0-18.0); MEAN CORPUSCULAR HEMOGLOBIN 28.7 pg (27.0-31.0); MEAN CORPUSCULAR HGB CONC 32.2 g/dL (32.0-36.0); MEAN CORPUSCULAR VOLUME 89.2 fL (80.0-94.0); MEAN PLATELET VOLUME 10.7 fL (7.4-11.4); RED BLOOD COUNT 4.91 10^6/uL (4.70-6.10); RED CELL DISTRIBUTION WIDTH 13.9 % (12.0-15.0); WHITE BLOOD COUNT 11.8 x10^3/uL (4.8-10.8)
[2019-10-06] MEDS: PIPERACILLIN/TAZOBACTAM 3.375 GM in SODIUM CHLORIDE 0.9% MINIBAG 100 ML IV SCH ×3 (06:07→21:49)
[2019-10-06] MEDS: PANTOPRAZOLE 40 MG TABLET PO SCH (06:07)
[2019-10-06 07:06] LABS: BASOPHILS % (AUTO) 0.3 %; EOSINOPHILS % (AUTO) 0.1 %; HGB - HEMOGLOBIN 14.3 g/dL (14.0-18.0); LYMPHOCYTES % (AUTO) 7.7 %; MEAN CORPUSCULAR HEMOGLOBIN 29.1 pg (27.0-31.0); MEAN CORPUSCULAR HGB CONC 32.4 g/dL (32.0-36.0); MEAN CORPUSCULAR VOLUME 89.8 fL (80.0-94.0); MEAN PLATELET VOLUME 10.9 fL (7.4-11.4); MONOCYTES % (AUTO) 4.8 %; NEUTROPHILS % (AUTO) 86.5 %; PLT - PLATELET COUNT 327 10^3/uL (130-450); RED BLOOD COUNT 4.91 10^6/uL (4.70-6.10); WHITE BLOOD COUNT 11.6 x10^3/uL (4.8-10.8)
[2019-10-06 07:07] LABS: ABNORMAL LYMPHS % (MANUAL) 0 %
[2019-10-06 07:16] LABS: CALCIUM 7.5 mg/dL (8.5-10.3); CREATININE 1.4 mg/dL (0.6-1.2); MAGNESIUM 1.9 mg/dL (1.7-2.8); PHOSPHORUS 2.7 mg/dL (2.5-4.6)
[2019-10-06 07:25] LABS: BAND NEUTROPHILS % (MANUAL) 20 %; LYMPHOCYTES # (MANUAL) 1.5 10^3/uL (1.5-3.5); LYMPHOCYTES % (MANUAL) 13 %; MONOCYTES # (MANUAL) 0.1 10^3/uL (0.0-1.0)
[2019-10-06 07:26] LABS: DIFFERENTIAL COMMENT MANUAL DIFFERENTIAL; PLATELET ESTIMATE, MANUAL NORMAL (130-450,000) (NORMAL); PLATELET MORPHOLOGY NORMAL APPEARANCE (NORMAL); RBC MORPHOLOGY (MULTIPLE) NORMAL APPEARANCE (NORMAL)
--- NOTE | 2019-10-06 13:28 | PROVIDER PROGRESS NOTE ---
Subjective - General Admit Date: 10/03/19 Procedure Date: 10/05/19 Post Op Days: 1 Procedure Performed: right colectomy - Other Other Information/Narrative: doing fine but very fatigued today. pain controlled. no nausea but moderate volume from NGT. abdomen soft. Objective - Patient Data Reviewed Vital Signs: Yes Vital Signs: Vital Signs x48h Temp Pulse Pulse Resp BP Pulse Ox 10/06/19 12:00 36.2 C L 97 18 97/61 94 10/06/19 08:48 36.6 C 99 18 97/55 L 96 Intake & Output: Intake and Output Totals x24h 10/04/19 10/05/19 10/06/19 23:59 23:59 23:59 Intake Total 2918.334 4582.084 1893.333 Output Total 1375 1235 650 Balance 4506.281 1717.084 1243.333 - Lab Results Lab Results: 10/06/19 04:35 10/06/19 04:35 Other Lab Results: Lab Results x24hrs 10/06/19 10/06/19 10/06/19 Range/Units 04:35 04:35 04:35 WBC 11.6 H 11.8 H (4.8-10.8) x10^3/uL RBC 4.91 4.91 (4.70-6.10) 10^6/uL Hgb 14.3 14.1 (14.0-18.0) g/dL Hct 44.1 43.8 (42.0-52.0) % MCV 89.8 89.2 (80.0-94.0) fL MCH 29.1 28.7 (27.0-31.0) pg MCHC 32.4 32.2 (32.0-36.0) g/dL RDW 14.0 13.9 (12.0-15.0) % Plt Count 327 321 (130-450) 10^3/uL MPV 10.9 10.7 (7.4-11.4) fL Neut # (Auto) Not Reportable Lymph # (Auto) Not Reportable [place] # (Auto) Not Reportable Eos # (Auto) Not Reportable Baso # (Auto) Not Reportable Absolute Nucleated RBC Not Reportable Total Counted 100 Band Neuts % (Manual) 20 H (0 - 10) % Abnorm Lymph % (Manual) 0 % Nucleated RBC % Not Reportable Neutrophils # (Manual) 10.0 H (1.5-6.6) 10^3/uL Lymphocytes # (Manual) 1.5 (1.5-3.5) 10^3/uL Monocytes # (Manual) 0.1 (0.0-1.0) 10^3/uL Eosinophils # (Manual) 0.0 (0-0.7) 10^3/uL Basophils # (Manual) 0.0 (0-0.1) 10^3/uL Differential Comment MANUAL DIFFERENTIAL WBC Morphology NORMAL APPEARANCE (NORMAL) Platelet Estimate NORMAL (130-450,000) (NORMAL) Platelet Morphology NORMAL APPEARANCE (NORMAL) RBC Morph Micro Appear NORMAL APPEARANCE (NORMAL) Sodium 142 (135-145) mmol/L Potassium 3.5 (3.5-5.0) mmol/L Chloride 119 H (101-111) mmol/L Carbon Dioxide 20 L (21-32) mmol/L Anion Gap 3.0 L (6-13) BUN 24 H (6-20) mg/dL Creatinine 1.4 H (0.6-1.2) mg/dL Estimated GFR (MDRD) 50 L (>89) Glucose 180 H (70-100) mg/dL Calcium 7.5 L (8.5-10.3) mg/dL Phosphorus 2.7 (2.5-4.6) mg/dL Magnesium 1.9 (1.7-2.8) mg/dL - Current Medications Current Medications: Current Medications Generic Name Dose Route Start Last Admin Trade Name Freq PRN Reason Stop Dose Admin Hydroxyzine Pamoate 50 mg 10/04/19 13:57 10/04/19 21:06 Vistaril PO 50 mg QPM PRN Administration Insomnia Piperacillin Sod/Tazobactam 100 mls @ 25 mls/hr 10/03/19 19:00 10/06/19 13:13 Sod 3.375 gm/ Sodium Chloride IV 25 mls/hr Q8HR [facility] Administration Dextrose/Sodium Chloride 1,000 mls @ 100 mls/hr 10/05/19 07:00 10/06/19 13:06 D5.45ns IV 100 mls/hr .Q10H [facility] Administration Morphine Sulfate 4 mg 10/05/19 08:07 10/06/19 08:20 Morphine (Carpuject) IVP 4 mg Q3HR PRN Administration Pain 8 to 10 Pantoprazole Sodium 40 mg 10/04/19 07:00 10/06/19 06:07 Protonix PO 40 mg QDAC [facility] Administration Sodium Chloride 10 ml 10/04/19 01:00 10/06/19 03:06 Normal Saline Flush 0.9% IVP 10 ml 0100,0900,1700 [facility] Administration - Physical Exam Comments/Other: AAO, NAD, tired EOMI, dry mouth and lips NGT in place, bilious output in cannister abd soft, inc dressed and clean, expected soreness but no true ttp MAEW, calves soft and in SCDs Impression/Plan - Problem List Problem List: - tired but doing well after surgery - keep NGT due to higher output and expected ileus but ok for more liberal water and ice chips --> changed NGT from regular suction to intermittent while in room - bustillo out - pain controlled, has prn morphine and PO narcotic for when taking more PO; holding on toradol due to mild PATY, pt does not seem to need supplements currently but may when local block wearing off and mobilizing more - antibiotics for 48 hrs post op due to stool spillage - SCDs, chemoprophylaxis - ambulate, OOB, IS
--- NOTE | 2019-10-06 14:56 | PROVIDER PROGRESS NOTE ---
Subjective - Prog Note Date Prog Note Date: 10/06/19 Prog Note Time: 14:54 - Subjective Pt reports feeling: Improved (Continues to report pain, but states it is well controlled. Otherwise she is quite tired, but feels he is getting much better sleep at night) Current Medications - Current Medications Current Medications: Active Medications Acetaminophen (Tylenol) 650 mg PO Q4HR PRN PRN Reason: Pain 1 to 4 Hydroxyzine Pamoate (Vistaril) 50 mg PO QPM PRN PRN Reason: Insomnia Last Admin: 10/04/19 21:06 Dose: 50 mg Piperacillin Sod/Tazobactam (Sod 3.375 gm/ Sodium Chloride) 100 mls @ 25 mls/hr IV Q8HR [facility] Last Admin: 10/06/19 13:13 Dose: 25 mls/hr Dextrose/Sodium Chloride (D5.45ns) 1,000 mls @ 100 mls/hr IV .Q10H [facility] Last Admin: 10/06/19 13:06 Dose: 100 mls/hr Morphine Sulfate (Morphine (Carpuject)) 4 mg IVP Q3HR PRN PRN Reason: Pain 8 to 10 Last Admin: 10/06/19 08:20 Dose: 4 mg Ondansetron HCl (Zofran Inj) 4 mg IVP Q6HR PRN PRN Reason: Nausea / Vomiting Oxycodone HCl (Roxicodone) 5 mg PO Q4HR PRN PRN Reason: Pain 5 to 7 Pantoprazole Sodium (Protonix) 40 mg PO QDAC [facility] Last Admin: 10/06/19 06:07 Dose: 40 mg Prochlorperazine Edisylate (Compazine Inj) 10 mg IVP Q6HR PRN PRN Reason: Nausea / Vomiting Sodium Chloride (Normal Saline Flush 0.9%) 10 ml IVP PRN PRN PRN Reason: NEEDED PER PROVIDER ORDERS Sodium Chloride (Normal Saline Flush 0.9%) 10 ml IVP 0100,0900,1700 [facility] Last Admin: 10/06/19 03:06 Dose: 10 ml No Known Home Medications 10/04/19 Objective - Vital Signs/Intake & Output Vital Signs: Vital Signs x48h Temp Pulse Pulse Resp BP Pulse Ox 10/06/19 12:00 36.2 C L 97 18 97/61 94 10/06/19 08:48 36.6 C 99 18 97/55 L 96 Intake & Output: Intake & Output 10/03/19 10/04/19 10/05/19 10/06/19 23:59 23:59 23:59 23:59 Intake Total 2500 2918.334 4582.084 1913.333 Output Total 1375 1235 1100 Balance 2500 9414.382 0573.084 813.333 - Objective General Appearance: positive: Lethargic Eyes Bilateral: positive: Normal inspection Respiratory: positive: Chest non-tender, No respiratory distress, Breath sounds nml Cardiovascular: positive: Regular rate & rhythm, No murmur, No gallop Abdomen: positive: Non-tender, Other (Midline abdominal incision, clean dressed) Skin: positive: Color nml Neurologic/Psychiatric: positive: Oriented x3, CN's nml (2-12) - Lab Results Fish Bones: 10/06/19 04:35 10/06/19 04:35 Other Labs: Lab Results x24hrs 10/06/19 10/06/19 10/06/19 Range/Units 04:35 04:35 04:35 WBC 11.6 H 11.8 H (4.8-10.8) x10^3/uL RBC 4.91 4.91 (4.70-6.10) 10^6/uL Hgb 14.3 14.1 (14.0-18.0) g/dL Hct 44.1 43.8 (42.0-52.0) % MCV 89.8 89.2 (80.0-94.0) fL MCH 29.1 28.7 (27.0-31.0) pg MCHC 32.4 32.2 (32.0-36.0) g/dL RDW 14.0 13.9 (12.0-15.0) % Plt Count 327 321 (130-450) 10^3/uL MPV 10.9 10.7 (7.4-11.4) fL Neut # (Auto) Not Reportable Lymph # (Auto) Not Reportable [place] # (Auto) Not Reportable Eos # (Auto) Not Reportable Baso # (Auto) Not Reportable Absolute Nucleated RBC Not Reportable Total Counted 100 Band Neuts % (Manual) 20 H (0 - 10) % Abnorm Lymph % (Manual) 0 % Nucleated RBC % Not Reportable Neutrophils # (Manual) 10.0 H (1.5-6.6) 10^3/uL Lymphocytes # (Manual) 1.5 (1.5-3.5) 10^3/uL Monocytes # (Manual) 0.1 (0.0-1.0) 10^3/uL Eosinophils # (Manual) 0.0 (0-0.7) 10^3/uL Basophils # (Manual) 0.0 (0-0.1) 10^3/uL Differential Comment MANUAL DIFFERENTIAL WBC Morphology NORMAL APPEARANCE (NORMAL) Platelet Estimate NORMAL (130-450,000) (NORMAL) Platelet Morphology NORMAL APPEARANCE (NORMAL) RBC Morph Micro Appear NORMAL APPEARANCE (NORMAL) Sodium 142 (135-145) mmol/L Potassium 3.5 (3.5-5.0) mmol/L Chloride 119 H (101-111) mmol/L Carbon Dioxide 20 L (21-32) mmol/L Anion Gap 3.0 L (6-13) BUN 24 H (6-20) mg/dL Creatinine 1.4 H (0.6-1.2) mg/dL Estimated GFR (MDRD) 50 L (>89) Glucose 180 H (70-100) mg/dL Calcium 7.5 L (8.5-10.3) mg/dL Phosphorus 2.7 (2.5-4.6) mg/dL Magnesium 1.9 (1.7-2.8) mg/dL - Diagnostic Imaging Diagnostic Imaging Results: positive: Final report reviewed Assessment/Plan - Problem List (1) Perforated abdominal viscus Impression: Doing well, post op day 1 s/p R maria eugenia-colectomy. Pain control is adequate, primarily on IV pain meds for now. NG tube, significant amount of suction, will continue through the night and reevaluate for possible removal in 1 to 2 days.Will defer to surgery for final decision. Given stool spillage in the operating room will, will continue Zosyn for antibiotic coverage 48 hours postop. Continue postoperative routine care, wound care, etc. (2) Acute kidney injury Impression: Somewhat improved despite the IV contrast from the CT scan yesterday. Continue gentle IV fluid hydration, monitor daily labs. (3) Hypernatremia Impression: Resolved
[2019-10-07] MEDS: SODIUM CHLORIDE FLUSH 0.9% 10 ML SYRINGE IVP SCH ×3 (00:53→18:16)
[2019-10-07] MEDS: MORPHINE 2 MG/ML CARPUJECT IVP PRN (04:15)
[2019-10-07 05:30] LABS: BASOPHILS % (AUTO) 0.3 %; EOSINOPHILS # (AUTO) 0.1 10^3/uL (0.0-0.7); EOSINOPHILS % (AUTO) 0.6 %; HGB - HEMOGLOBIN 12.8 g/dL (14.0-18.0); LYMPHOCYTES # (AUTO) 1.2 10^3/uL (1.5-3.5); LYMPHOCYTES % (AUTO) 9.7 %; MEAN CORPUSCULAR HEMOGLOBIN 30.1 pg (27.0-31.0); MEAN CORPUSCULAR HGB CONC 32.6 g/dL (32.0-36.0); MEAN CORPUSCULAR VOLUME 92.5 fL (80.0-94.0); MEAN PLATELET VOLUME 10.8 fL (7.4-11.4); MONOCYTES # (AUTO) 0.3 10^3/uL (0.0-1.0); MONOCYTES % (AUTO) 2.5 %; NEUTROPHILS # (AUTO) 10.6 10^3/uL (1.5-6.6); NEUTROPHILS % (AUTO) 86.1 %; PLT - PLATELET COUNT 273 10^3/uL (130-450); RED BLOOD COUNT 4.25 10^6/uL (4.70-6.10); RED CELL DISTRIBUTION WIDTH 14.1 % (12.0-15.0); WHITE BLOOD COUNT 12.3 x10^3/uL (4.8-10.8)
[2019-10-07 05:33] LABS: CALCIUM 7.8 mg/dL (8.5-10.3); CREATININE 1.5 mg/dL (0.6-1.2); PHOSPHORUS 1.4 mg/dL (2.5-4.6)
[2019-10-07] MEDS: PIPERACILLIN/TAZOBACTAM 3.375 GM in SODIUM CHLORIDE 0.9% MINIBAG 100 ML IV SCH ×3 (06:25→21:13)
[2019-10-07] MEDS: PANTOPRAZOLE 40 MG TABLET PO SCH (06:26)
[2019-10-07] MEDS ORDERED: POTASSIUM CHLORIDE 20 MEQ TABLET PO ONE (06:55)
[2019-10-07] MEDS ORDERED: POTASSIUM PHOSPHATE 21 MMOL in SODIUM CHLORIDE 0.9% 250 ML IV ONE (06:55)
[2019-10-07] MEDS: POTASSIUM CHLOR 10 MEQ/100 ML 10 MEQ/100 ML BAG IV SCH ×2 (07:43→08:49)
[2019-10-07] MEDS: DEXTROSE 5%-0.45% NACL 1,000 ML IV SCH ×2 (08:44→18:16)
--- NOTE | 2019-10-07 11:58 | PROVIDER PROGRESS NOTE ---
Subjective - General Admit Date: 10/03/19 Procedure Date: 10/05/19 Post Op Days: 2 Procedure Performed: right colectomy - Review of Systems General: positive: Fatigue Gastrointestinal: positive: Other (symptoms are unchanged, still some vague abdominal discomfort no caryl, no increase or change in his pain.) - Other Other Information/Narrative: still fatigued but pain controlled, walked a bit in room yesterday. voiding well with bustillo out. Low volume NGT output, no distension or nausea. No flatus. Objective - Patient Data Reviewed Vital Signs: Yes Vital Signs: Vital Signs x48h Temp Pulse Resp BP Pulse Ox 10/07/19 11:34 36.3 C L 80 16 122/69 98 10/07/19 07:48 36.7 C 82 18 130/64 96 10/07/19 04:05 36.3 C L 88 16 122/58 L 98 Intake & Output: Intake and Output Totals x24h 10/05/19 10/06/19 10/07/19 23:59 23:59 23:59 Intake Total 4582.084 2968.333 1439 Output Total 1235 1800 500 Balance 3347.084 1168.333 939 - Lab Results Lab Results: 10/07/19 04:30 10/07/19 04:30 Other Lab Results: Lab Results x24hrs 10/07/19 10/07/19 Range/Units 04:30 04:30 WBC 12.3 H (4.8-10.8) x10^3/uL RBC 4.25 L (4.70-6.10) 10^6/uL Hgb 12.8 L (14.0-18.0) g/dL Hct 39.3 L (42.0-52.0) % MCV 92.5 (80.0-94.0) fL MCH 30.1 (27.0-31.0) pg MCHC 32.6 (32.0-36.0) g/dL RDW 14.1 (12.0-15.0) % Plt Count 273 (130-450) 10^3/uL MPV 10.8 (7.4-11.4) fL Neut # (Auto) 10.6 H (1.5-6.6) 10^3/uL Lymph # (Auto) 1.2 L (1.5-3.5) 10^3/uL [place] # (Auto) 0.3 (0.0-1.0) 10^3/uL Eos # (Auto) 0.1 (0.0-0.7) 10^3/uL Baso # (Auto) 0.0 (0.0-0.1) 10^3/uL Absolute Nucleated RBC 0.00 x10^3/uL Nucleated RBC % 0.0 /100WBC Sodium 144 (135-145) mmol/L Potassium 3.4 L (3.5-5.0) mmol/L Chloride 114 H (101-111) mmol/L Carbon Dioxide 22 (21-32) mmol/L Anion Gap 8.0 (6-13) BUN 21 H (6-20) mg/dL Creatinine 1.5 H (0.6-1.2) mg/dL Estimated GFR (MDRD) 46 L (>89) Glucose 125 H (70-100) mg/dL Calcium 7.8 L (8.5-10.3) mg/dL Phosphorus 1.4 L (2.5-4.6) mg/dL Magnesium 2.0 (1.7-2.8) mg/dL - Current Medications Current Medications: Current Medications Generic Name Dose Route Start Last Admin Trade Name Freq PRN Reason Stop Dose Admin Hydroxyzine Pamoate 50 mg 10/04/19 13:57 10/04/19 21:06 Vistaril PO 50 mg QPM PRN Administration Insomnia Piperacillin Sod/Tazobactam 100 mls @ 25 mls/hr 10/03/19 19:00 10/07/19 10:41 Sod 3.375 gm/ Sodium Chloride IV Infused Q8HR PABLO Infusion Dextrose/Sodium Chloride 1,000 mls @ 100 mls/hr 10/05/19 07:00 10/07/19 08:44 D5.45ns IV 100 mls/hr .Q10H PABLO Administration Potassium Phosphate 21 mmol/ 257 mls @ 42.833 mls/hr 10/07/19 06:55 10/07/19 11:16 Sodium Chloride IV 10/07/19 12:54 42.833 mls/hr ONCE ONE Administration Morphine Sulfate 4 mg 10/05/19 08:07 10/07/19 04:15 Morphine (Carpuject) IVP 4 mg Q3HR PRN Administration Pain 8 to 10 Pantoprazole Sodium 40 mg 10/04/19 07:00 10/07/19 06:26 Protonix PO 40 mg QDAC PABLO Administration Sodium Chloride 10 ml 10/04/19 01:00 10/07/19 04:16 Normal Saline Flush 0.9% IVP 10 ml 0100,0900,1700 PABLO Administration - Physical Exam Comments/Other: AAO, NAD EOMI, dry lips NGT with low volume gastric contents in canister unlabored RA soft, nd, incisional soreness as expected, inc c/d/i MAEW; calves soft and in SCDs Impression/Plan - Problem List Problem List: - still tired but overall doing well - NGT with low volume; expect ileus --> clamping trial with NGT --> ok for more liberal water and ice chips - bustillo out; voiding well - pain controlled, has prn morphine and PO narcotic for when taking more PO; holding on toradol due to mild PATY, pt does not seem to need supplements currently but may when local block wearing off and mobilizing more - antibiotics for 48 hrs post op due to stool spillage; stop tomorrow - SCDs, chemoprophylaxis - ambulate, OOB, IS
[2019-10-07] MEDS: oxyCODONE 5 MG TABLET PO PRN ×2 (15:34→19:58)
--- NOTE | 2019-10-07 17:56 | PROVIDER PROGRESS NOTE ---
Subjective - Prog Note Date Prog Note Date: 10/07/19 Prog Note Time: 10:25 - Subjective Pt reports feeling: Improved Subjective: Feeling tired, still no flatus, but pain is well controlled Current Medications - Current Medications Current Medications: Active Medications Acetaminophen (Tylenol) 650 mg PO Q4HR PRN PRN Reason: Pain 1 to 4 Hydroxyzine Pamoate (Vistaril) 50 mg PO QPM PRN PRN Reason: Insomnia Last Admin: 10/04/19 21:06 Dose: 50 mg Piperacillin Sod/Tazobactam (Sod 3.375 gm/ Sodium Chloride) 100 mls @ 25 mls/hr IV Q8HR [facility] Last Admin: 10/07/19 13:25 Dose: 25 mls/hr Dextrose/Sodium Chloride (D5.45ns) 1,000 mls @ 100 mls/hr IV .Q10H [facility] Last Infusion: 10/07/19 14:52 Dose: 100 mls/hr Morphine Sulfate (Morphine (Carpuject)) 4 mg IVP Q3HR PRN PRN Reason: Pain 8 to 10 Last Admin: 10/07/19 04:15 Dose: 4 mg Ondansetron HCl (Zofran Inj) 4 mg IVP Q6HR PRN PRN Reason: Nausea / Vomiting Oxycodone HCl (Roxicodone) 5 mg PO Q4HR PRN PRN Reason: Pain 5 to 7 Last Admin: 10/07/19 15:34 Dose: 5 mg Pantoprazole Sodium (Protonix) 40 mg PO QDAC [facility] Last Admin: 10/07/19 06:26 Dose: 40 mg Prochlorperazine Edisylate (Compazine Inj) 10 mg IVP Q6HR PRN PRN Reason: Nausea / Vomiting Sodium Chloride (Normal Saline Flush 0.9%) 10 ml IVP PRN PRN PRN Reason: NEEDED PER PROVIDER ORDERS Sodium Chloride (Normal Saline Flush 0.9%) 10 ml IVP 0100,0900,1700 [facility] Last Admin: 10/07/19 04:16 Dose: 10 ml No Known Home Medications 10/04/19 Objective - Vital Signs/Intake & Output Reviewed Vital Signs: Yes Vital Signs: Vital Signs x48h Temp Pulse Resp BP Pulse Ox 10/07/19 15:29 36.3 C L 69 20 125/65 97 10/07/19 11:34 36.3 C L 80 16 122/69 98 Intake & Output: Intake & Output 10/04/19 10/05/19 10/06/19 10/07/19 23:59 23:59 23:59 23:59 Intake Total 2918.334 4582.084 2968.333 2172.333 Output Total 1375 1235 1800 850 Balance 1687.558 0218.084 9268.379 3516.333 - Objective General Appearance: positive: No acute distress, Lethargic Eyes Bilateral: positive: Normal inspection Respiratory: positive: Chest non-tender, No respiratory distress, Breath sounds nml Cardiovascular: positive: Regular rate & rhythm, No murmur, No gallop Abdomen: positive: No organomegaly, No distention, Tenderness, Abnml bowel sounds (Hypoactive bowel sounds) Back: positive: Nml inspection Skin: positive: Color nml Extremities: positive: No pedal edema Neurologic/Psychiatric: positive: Oriented x3, CN's nml (2-12) - Lab Results Fish Bones: 10/07/19 04:30 10/07/19 04:30 Other Labs: Lab Results x24hrs 10/07/19 10/07/19 Range/Units 04:30 04:30 WBC 12.3 H (4.8-10.8) x10^3/uL RBC 4.25 L (4.70-6.10) 10^6/uL Hgb 12.8 L (14.0-18.0) g/dL Hct 39.3 L (42.0-52.0) % MCV 92.5 (80.0-94.0) fL MCH 30.1 (27.0-31.0) pg MCHC 32.6 (32.0-36.0) g/dL RDW 14.1 (12.0-15.0) % Plt Count 273 (130-450) 10^3/uL MPV 10.8 (7.4-11.4) fL Neut # (Auto) 10.6 H (1.5-6.6) 10^3/uL Lymph # (Auto) 1.2 L (1.5-3.5) 10^3/uL [place] # (Auto) 0.3 (0.0-1.0) 10^3/uL Eos # (Auto) 0.1 (0.0-0.7) 10^3/uL Baso # (Auto) 0.0 (0.0-0.1) 10^3/uL Absolute Nucleated RBC 0.00 x10^3/uL Nucleated RBC % 0.0 /100WBC Sodium 144 (135-145) mmol/L Potassium 3.4 L (3.5-5.0) mmol/L Chloride 114 H (101-111) mmol/L Carbon Dioxide 22 (21-32) mmol/L Anion Gap 8.0 (6-13) BUN 21 H (6-20) mg/dL Creatinine 1.5 H (0.6-1.2) mg/dL Estimated GFR (MDRD) 46 L (>89) Glucose 125 H (70-100) mg/dL Calcium 7.8 L (8.5-10.3) mg/dL Phosphorus 1.4 L (2.5-4.6) mg/dL Magnesium 2.0 (1.7-2.8) mg/dL Assessment/Plan - Problem List (1) Perforated abdominal viscus Impression: Postop day 1 status post right hemicolectomy Adequate pain control with minimal use of IV morphine NG tube clamped today, with more liberal introduction of clear liquids DC IV Zosyn in the morning Continue routine postop care (2) Acute kidney injury Impression: Creatinine up somewhat slightly today from 1.4-1.5, likely related to recent surgery, wound healing, in the setting of volume depletion and recent dehydration. Continue IV fluid supplementation, Increasing rate to 125 mL/h, avoid nephrotoxic agents, repeat labs in the morning. (3) Hypernatremia Impression: Resolved
[2019-10-07] MEDS: hydrOXYzine PAMOATE 25 MG CAPSULE PO PRN (19:59)
[2019-10-08] MEDS: ACETAMINOPHEN 325 MG TABLET PO PRN (00:10)
[2019-10-08] MEDS: SODIUM CHLORIDE FLUSH 0.9% 10 ML SYRINGE IVP SCH ×3 (00:15→18:04)
[2019-10-08] MEDS: oxyCODONE 5 MG TABLET PO PRN ×3 (00:29→21:38)
[2019-10-08] MEDS: DEXTROSE 5%-0.45% NACL 1,000 ML IV SCH ×3 (01:59→18:04)
[2019-10-08] MEDS: PANTOPRAZOLE 40 MG TABLET PO SCH (06:36)
[2019-10-08 07:54] LABS: BASOPHILS % (AUTO) 0.2 %; EOSINOPHILS # (AUTO) 0.2 10^3/uL (0.0-0.7); EOSINOPHILS % (AUTO) 1.6 %; HGB - HEMOGLOBIN 11.1 g/dL (14.0-18.0); LYMPHOCYTES # (AUTO) 1.2 10^3/uL (1.5-3.5); LYMPHOCYTES % (AUTO) 12.6 %; MEAN CORPUSCULAR HEMOGLOBIN 29.8 pg (27.0-31.0); MEAN CORPUSCULAR HGB CONC 33.3 g/dL (32.0-36.0); MEAN CORPUSCULAR VOLUME 89.3 fL (80.0-94.0); MEAN PLATELET VOLUME 10.3 fL (7.4-11.4); MONOCYTES # (AUTO) 0.3 10^3/uL (0.0-1.0); MONOCYTES % (AUTO) 2.6 %; NEUTROPHILS # (AUTO) 7.8 10^3/uL (1.5-6.6); NEUTROPHILS % (AUTO) 82.4 %; PLT - PLATELET COUNT 235 10^3/uL (130-450); RED BLOOD COUNT 3.73 10^6/uL (4.70-6.10); WHITE BLOOD COUNT 9.5 x10^3/uL (4.8-10.8)
[2019-10-08 08:02] LABS: CALCIUM 7.2 mg/dL (8.5-10.3); CREATININE 1.3 mg/dL (0.6-1.2); MAGNESIUM 1.8 mg/dL (1.7-2.8); PHOSPHORUS 2.1 mg/dL (2.5-4.6)
[2019-10-08] MEDS ORDERED: ONDANSETRON ODT 4 MG TABLET TL PRN (08:08)
[2019-10-08] MEDS: POTASSIUM CHLOR 10 MEQ/100 ML 10 MEQ/100 ML BAG IV SCH ×3 (08:25→14:43)
[2019-10-08] MEDS ORDERED: POTASSIUM CHLOR 10 MEQ/100 ML 10 MEQ/100 ML BAG IV SCH (08:30)
[2019-10-08] MEDS ORDERED: POTASSIUM CHLOR 10 MEQ/100 ML 10 MEQ/100 ML BAG IV ONE ×3 (09:10→11:20)
--- NOTE | 2019-10-08 10:27 | PROVIDER PROGRESS NOTE ---
Subjective - General Admit Date: 10/03/19 Procedure Date: 10/05/19 Post Op Days: 3 Procedure Performed: right colectomy - Other Other Information/Narrative: Doing well, still quite tired. No nausea or abd pain. Main complaint currently is RUE- IV infiltrated while administering K+ and it is sore. Passing occasional flatus. Objective - Patient Data Reviewed Vital Signs: Yes Vital Signs: Vital Signs x48h Temp Pulse Resp BP Pulse Ox 10/08/19 08:02 36.9 C 64 18 107/64 95 10/08/19 06:34 36.5 C 64 17 115/65 93 Intake & Output: Intake and Output Totals x24h 10/06/19 10/07/19 10/08/19 23:59 23:59 23:59 Intake Total 2968.333 3067.000 1064.583 Output Total 1800 1050 700 Balance 3125.623 5876.000 364.583 - Lab Results Lab Results: 10/08/19 07:41 10/08/19 07:41 Other Lab Results: Lab Results x24hrs 10/08/19 10/08/19 Range/Units 07:41 07:41 WBC 9.5 (4.8-10.8) x10^3/uL RBC 3.73 L (4.70-6.10) 10^6/uL Hgb 11.1 L (14.0-18.0) g/dL Hct 33.3 L (42.0-52.0) % MCV 89.3 (80.0-94.0) fL MCH 29.8 (27.0-31.0) pg MCHC 33.3 (32.0-36.0) g/dL RDW 14.0 (12.0-15.0) % Plt Count 235 (130-450) 10^3/uL MPV 10.3 (7.4-11.4) fL Neut # (Auto) 7.8 H (1.5-6.6) 10^3/uL Lymph # (Auto) 1.2 L (1.5-3.5) 10^3/uL [place] # (Auto) 0.3 (0.0-1.0) 10^3/uL Eos # (Auto) 0.2 (0.0-0.7) 10^3/uL Baso # (Auto) 0.0 (0.0-0.1) 10^3/uL Absolute Nucleated RBC 0.00 x10^3/uL Nucleated RBC % 0.0 /100WBC Sodium 134 L (135-145) mmol/L Potassium 3.0 L (3.5-5.0) mmol/L Chloride 106 (101-111) mmol/L Carbon Dioxide 23 (21-32) mmol/L Anion Gap 5.0 L (6-13) BUN 12 (6-20) mg/dL Creatinine 1.3 H (0.6-1.2) mg/dL Estimated GFR (MDRD) 54 L (>89) Glucose 113 H (70-100) mg/dL Calcium 7.2 L (8.5-10.3) mg/dL Phosphorus 2.1 L (2.5-4.6) mg/dL Magnesium 1.8 (1.7-2.8) mg/dL - Current Medications Current Medications: Current Medications Generic Name Dose Route Start Last Admin Trade Name Freq PRN Reason Stop Dose Admin Acetaminophen 650 mg 10/03/19 18:35 10/08/19 00:10 Tylenol PO 650 mg Q4HR PRN Administration Pain 1 to 4 Hydroxyzine Pamoate 50 mg 10/04/19 13:57 10/07/19 19:59 Vistaril PO 50 mg QPM PRN Administration Insomnia Dextrose/Sodium Chloride 1,000 mls @ 125 mls/hr 10/07/19 17:58 10/08/19 01:59 D5.45ns IV 125 mls/hr .Q8H PABLO Administration Potassium Chloride 10 meq in 100 mls @ 100 mls/hr 10/08/19 08:30 10/08/19 08:25 Potassium Chloride IV 10/08/19 12:29 100 mls/hr Q1H PABLO Administration Oxycodone HCl 5 mg 10/03/19 18:35 10/08/19 06:37 Roxicodone PO 5 mg Q4HR PRN Administration Pain 5 to 7 Pantoprazole Sodium 40 mg 10/04/19 07:00 10/08/19 06:36 Protonix PO 40 mg QDAC PABLO Administration Sodium Chloride 10 ml 10/03/19 18:35 10/07/19 21:13 Normal Saline Flush 0.9% IVP 10 ml PRN PRN Administration NEEDED PER PROVIDER ORDERS Sodium Chloride 10 ml 10/04/19 01:00 10/08/19 08:30 Normal Saline Flush 0.9% IVP 10 ml 0100,0900,1700 [facility] Administration - Physical Exam Comments/Other: AAO, NAD EOMI, dry lips unlabored RA soft, nd, incisional soreness as expected, inc c/d/i MAEW; calves soft Impression/Plan - Problem List Problem List: - still tired but overall doing well - NGT removed yesterday --> no nausea, did well with low volume PO yesterday; advance to CLD but cautioned slow intake --> clear Boost if able to supplement --> will drop IVFs - bustillo out; voiding well - pain controlled, has prn morphine and PO narcotic for when taking more PO; holding on toradol due to mild PATY, pt does not seem to need supplements currently but may when local block wearing off and mobilizing more - antibiotics completed - SCDs, chemoprophylaxis - ambulate, OOB, IS
[2019-10-08] MEDS ORDERED: HYALURONIDASE HUMAN RECOMB 150 UNIT/ML VIAL SUBQ ONE (10:30)
--- NOTE | 2019-10-08 18:45 | PROVIDER PROGRESS NOTE ---
Subjective - Prog Note Date Prog Note Date: 10/08/19 Prog Note Time: 18:43 - Subjective Pt reports feeling: Improved Subjective: Continues to feel tired, minimal pain.Was able to pass flatus today Current Medications - Current Medications Current Medications: Active Medications Acetaminophen (Tylenol) 650 mg PO Q4HR PRN PRN Reason: Pain 1 to 4 Last Admin: 10/08/19 00:10 Dose: 650 mg Hydroxyzine Pamoate (Vistaril) 50 mg PO QPM PRN PRN Reason: Insomnia Last Admin: 10/07/19 19:59 Dose: 50 mg Dextrose/Sodium Chloride (D5.45ns) 1,000 mls @ 125 mls/hr IV .Q8H [facility]ABLO Last Admin: 10/08/19 18:04 Dose: 125 mls/hr Ondansetron HCl (Zofran Inj) 4 mg IVP Q6HR PRN PRN Reason: Nausea / Vomiting Ondansetron HCl (Zofran Odt) 4 mg TL Q6HR PRN PRN Reason: Nausea / Vomiting Oxycodone HCl (Roxicodone) 5 mg PO Q4HR PRN PRN Reason: Pain 5 to 7 Last Admin: 10/08/19 06:37 Dose: 5 mg Pantoprazole Sodium (Protonix) 40 mg PO QDAC [facility] Last Admin: 10/08/19 06:36 Dose: 40 mg Prochlorperazine Edisylate (Compazine Inj) 10 mg IVP Q6HR PRN PRN Reason: Nausea / Vomiting Sodium Chloride (Normal Saline Flush 0.9%) 10 ml IVP PRN PRN PRN Reason: NEEDED PER PROVIDER ORDERS Last Admin: 10/07/19 21:13 Dose: 10 ml Sodium Chloride (Normal Saline Flush 0.9%) 10 ml IVP 0100,0900,1700 [facility] Last Admin: 10/08/19 18:04 Dose: Not Given No Known Home Medications 10/04/19 Objective - Vital Signs/Intake & Output Vital Signs: Vital Signs x48h Temp Pulse Resp BP Pulse Ox 10/08/19 15:37 36.6 C 61 14 132/74 H 97 10/08/19 11:19 36.4 C L 62 18 107/54 L 92 Intake & Output: Intake & Output 04/10/20 10/06/19 10/07/19 10/08/19 23:59 23:59 23:59 23:59 Intake Total 4582.084 2968.333 3067.000 3517.083 Output Total 1235 1800 1050 1400 Balance 3347.084 7012.759 1027.000 2117.083 - Objective General Appearance: positive: No acute distress Respiratory: positive: Chest non-tender, No respiratory distress Cardiovascular: positive: Regular rate & rhythm, No murmur, No gallop Abdomen: positive: No organomegaly, Nml bowel sounds, Tenderness Skin: positive: Color nml, Other (Midline abdominal surgical wound with multiple ron, CDI) Extremities: positive: No pedal edema Neurologic/Psychiatric: positive: Oriented x3, CN's nml (2-12) - Lab Results Fish Bones: 10/08/19 07:41 10/08/19 07:41 Other Labs: Lab Results x24hrs 10/08/19 10/08/19 Range/Units 07:41 07:41 WBC 9.5 (4.8-10.8) x10^3/uL RBC 3.73 L (4.70-6.10) 10^6/uL Hgb 11.1 L (14.0-18.0) g/dL Hct 33.3 L (42.0-52.0) % MCV 89.3 (80.0-94.0) fL MCH 29.8 (27.0-31.0) pg MCHC 33.3 (32.0-36.0) g/dL RDW 14.0 (12.0-15.0) % Plt Count 235 (130-450) 10^3/uL MPV 10.3 (7.4-11.4) fL Neut # (Auto) 7.8 H (1.5-6.6) 10^3/uL Lymph # (Auto) 1.2 L (1.5-3.5) 10^3/uL [place] # (Auto) 0.3 (0.0-1.0) 10^3/uL Eos # (Auto) 0.2 (0.0-0.7) 10^3/uL Baso # (Auto) 0.0 (0.0-0.1) 10^3/uL Absolute Nucleated RBC 0.00 x10^3/uL Nucleated RBC % 0.0 /100WBC Sodium 134 L (135-145) mmol/L Potassium 3.0 L (3.5-5.0) mmol/L Chloride 106 (101-111) mmol/L Carbon Dioxide 23 (21-32) mmol/L Anion Gap 5.0 L (6-13) BUN 12 (6-20) mg/dL Creatinine 1.3 H (0.6-1.2) mg/dL Estimated GFR (MDRD) 54 L (>89) Glucose 113 H (70-100) mg/dL Calcium 7.2 L (8.5-10.3) mg/dL Phosphorus 2.1 L (2.5-4.6) mg/dL Magnesium 1.8 (1.7-2.8) mg/dL Assessment/Plan - Problem List (1) Perforated abdominal viscus Impression: Status post right hemicolectomy, postop day 3. Doing well. Positive bowel tones and passing flatus. Advance to clear liquids today, possible full liquid diet tomorrow. (2) Acute kidney injury Impression: Slowly improving, continue to monitor labs. Suspect some degree of ATN at this point. (3) Hypernatremia Impression: Resolved
[2019-10-09] MEDS: SODIUM CHLORIDE FLUSH 0.9% 10 ML SYRINGE IVP SCH ×3 (01:19→16:14)
[2019-10-09] MEDS: DEXTROSE 5%-0.45% NACL 1,000 ML IV SCH (01:42)
[2019-10-09 05:38] LABS: BASOPHILS % (AUTO) 0.1 %; EOSINOPHILS # (AUTO) 0.1 10^3/uL (0.0-0.7); HGB - HEMOGLOBIN 12.1 g/dL (14.0-18.0); LYMPHOCYTES # (AUTO) 1.1 10^3/uL (1.5-3.5); LYMPHOCYTES % (AUTO) 11.2 %; MEAN CORPUSCULAR HEMOGLOBIN 28.5 pg (27.0-31.0); MEAN CORPUSCULAR HGB CONC 32.8 g/dL (32.0-36.0); MEAN CORPUSCULAR VOLUME 86.8 fL (80.0-94.0); MEAN PLATELET VOLUME 10.6 fL (7.4-11.4); MONOCYTES # (AUTO) 0.4 10^3/uL (0.0-1.0); MONOCYTES % (AUTO) 3.7 %; NEUTROPHILS # (AUTO) 7.8 10^3/uL (1.5-6.6); NEUTROPHILS % (AUTO) 83.4 %; PLT - PLATELET COUNT 291 10^3/uL (130-450); RED BLOOD COUNT 4.25 10^6/uL (4.70-6.10); WHITE BLOOD COUNT 9.4 x10^3/uL (4.8-10.8)
[2019-10-09 05:51] LABS: CALCIUM 7.6 mg/dL (8.5-10.3); CREATININE 1.2 mg/dL (0.6-1.2); MAGNESIUM 1.8 mg/dL (1.7-2.8); PHOSPHORUS 2.2 mg/dL (2.5-4.6)
[2019-10-09] MEDS: PANTOPRAZOLE 40 MG TABLET PO SCH (05:59)
[2019-10-09] MEDS ORDERED: POTASSIUM CHLORIDE 20 MEQ TABLET PO ONE (06:28)
[2019-10-09] MEDS: POTASSIUM CHLOR 10 MEQ/100 ML 10 MEQ/100 ML BAG IV SCH ×4 (06:59→10:19)
[2019-10-09] MEDS ORDERED: NEUTRA-PHOS 250 MG TABLET PO SCH (07:00)
[2019-10-09] MEDS ORDERED: D5.45NS W/20 MEQ KCL 1,000 ML IV SCH (08:00)
--- NOTE | 2019-10-09 09:45 | XRAY Report ---
Reason: pain and swelling at infiltrated IV site, RN req Procedure Date: 10/09/2019 Accession Number: [id number] / [id number] Procedure: XR - Elbow 2 View RT CPT Code: Final Report FULL RESULT: EXAM: RIGHT ELBOW RADIOGRAPHY EXAM DATE: 10/09/2019 08:20 AM. CLINICAL HISTORY: Pain and swelling at infiltrated IV site, RN req. COMPARISON: None. TECHNIQUE: 2 views. FINDINGS: Bones: No fracture or focal bony lesion. Joints: No evidence of dislocation. Soft Tissues: Intravenous line is in place. IMPRESSION: 1. No evidence of fracture or focal bony lesion. No radiographic evidence of joint effusion or focal soft tissue abnormalities. 2. There is kinking at the insertion site of the patient's intravenous line. RADIA
[2019-10-09] MEDS: D5.45NS W/20 MEQ KCL 1,000 ML IV SCH ×2 (09:57→22:16)
--- NOTE | 2019-10-09 10:24 | PROVIDER PROGRESS NOTE ---
Subjective - Prog Note Date Prog Note Date: 10/09/19 - Subjective Pt reports feeling: No change Subjective: pt is alert and oriented today. pt report he denies abdominal pain, denies fever, or chill, shortness of breath or chest pain. He denies nausea or v omiting. he report he did not have bowel movement today. he passed gas before. he report he does not have appetite, and feel tired. Current Medications - Current Medications Current Medications: Active Medications Acetaminophen (Tylenol) 650 mg PO Q4HR PRN PRN Reason: Pain 1 to 4 Last Admin: 10/08/19 00:10 Dose: 650 mg Hydroxyzine Pamoate (Vistaril) 50 mg PO QPM PRN PRN Reason: Insomnia Last Admin: 10/07/19 19:59 Dose: 50 mg Potassium Chloride (Potassium Chloride) 10 meq in 100 mls @ 100 mls/hr IV Q1H [facility] Stop: 10/09/19 10:59 Last Admin: 10/09/19 10:19 Dose: 100 mls/hr Potassium Chloride/Dextrose/Sod Cl (D5.45ns W/20 Meq Kcl) 1,000 mls @ 75 mls/hr IV .[id number] [facility] Last Admin: 10/09/19 09:57 Dose: 75 mls/hr Ondansetron HCl (Zofran Inj) 4 mg IVP Q6HR PRN PRN Reason: Nausea / Vomiting Ondansetron HCl (Zofran Odt) 4 mg TL Q6HR PRN PRN Reason: Nausea / Vomiting Oxycodone HCl (Roxicodone) 5 mg PO Q4HR PRN PRN Reason: Pain 5 to 7 Last Admin: 10/08/19 21:38 Dose: 5 mg Pantoprazole Sodium (Protonix) 40 mg PO QDAC [facility] Last Admin: 10/09/19 05:59 Dose: 40 mg Prochlorperazine Edisylate (Compazine Inj) 10 mg IVP Q6HR PRN PRN Reason: Nausea / Vomiting Sodium Chloride (Normal Saline Flush 0.9%) 10 ml IVP PRN PRN PRN Reason: NEEDED PER PROVIDER ORDERS Last Admin: 10/07/19 21:13 Dose: 10 ml Sodium Chloride (Normal Saline Flush 0.9%) 10 ml IVP 0100,0900,1700 [facility] Last Admin: 10/09/19 08:25 Dose: Not Given Sodium Phosphate (K-Phos Neutral) 250 mg PO TIDWM [facility] No Known Home Medications 10/04/19 Objective - Vital Signs/Intake & Output Vital Signs: Vital Signs x48h Temp Pulse Resp BP Pulse Ox 10/09/19 07:30 36.8 C 64 16 137/73 H 95 10/09/19 05:21 36.6 C 64 16 142/73 H 93 Intake & Output: Intake & Output 10/06/19 10/07/19 10/08/19 10/09/19 23:59 23:59 23:59 23:59 Intake Total 2968.333 3067.000 3817.083 2185.167 Output Total 1800 1050 2300 1525 Balance 1652.062 8743.000 1517.083 660.167 - Objective General Appearance: positive: No acute distress, Alert. negative: Lethargic Eyes Bilateral: positive: Normal inspection, PERRL, No lid inflammation ENT: positive: ENT inspection nml, Pharynx nml, No signs of dehydration. negative: Dry mucous membranes Neck: positive: Nml inspection, Thyroid nml, No JVD, Trachea midline. negative: Thyromegaly, Stiff neck, Tracheal deviation Respiratory: positive: Chest non-tender, No respiratory distress, Breath sounds nml. negative: Wheezes, Rales, Rhonchi Cardiovascular: positive: Regular rate & rhythm, No murmur, No gallop. negative: Irregularly irregular, Extrasystoles, Tachycardia, Bradycardia, JVD present, Systolic murmur, Diastolic murmur Peripheral Pulses: 2+ Radial (R), 2+ Radial (L), 2+ Dorsalis pedis (R), 2+ Dorsalis pedis (L) Abdomen: positive: Non-tender, No organomegaly, Abnml bowel sounds, Other. negative: Nml bowel sounds (normal bowel sound at the left upper and lower abdomen but diminshed bowel sound on right abdomen), No distention (pt has moderate distention of abdomen with middle surgical suture. There is no drainage or no indication for surgery site infection.), Tenderness, Guarding, Rebound Back: positive: Nml inspection. negative: CVA tenderness (R), CVA tenderness (L) Skin: positive: Color nml, No rash, Warm, Dry. negative: Cyanosis, Diaphoresis, Pallor Extremities: positive: Non-tender, Full ROM, Nml appearance. negative: Pedal edema, Calf tenderness, Rios's sign/cords Neurologic/Psychiatric: positive: Oriented x3, Motor nml, Sensation nml, Mood/affect nml. negative: Weakness, Sensory loss, Facial droop, Slurred/abnml speech, Depressed mood/affect - Lab Results Fish Bones: 10/09/19 05:15 10/09/19 05:15 Other Labs: Lab Results x24hrs 10/09/19 10/09/19 Range/Units 05:15 05:15 WBC 9.4 (4.8-10.8) x10^3/uL RBC 4.25 L (4.70-6.10) 10^6/uL Hgb 12.1 L (14.0-18.0) g/dL Hct 36.9 L (42.0-52.0) % MCV 86.8 (80.0-94.0) fL MCH 28.5 (27.0-31.0) pg MCHC 32.8 (32.0-36.0) g/dL RDW 14.0 (12.0-15.0) % Plt Count 291 (130-450) 10^3/uL MPV 10.6 (7.4-11.4) fL Neut # (Auto) 7.8 H (1.5-6.6) 10^3/uL Lymph # (Auto) 1.1 L (1.5-3.5) 10^3/uL [place] # (Auto) 0.4 (0.0-1.0) 10^3/uL Eos # (Auto) 0.1 (0.0-0.7) 10^3/uL Baso # (Auto) 0.0 (0.0-0.1) 10^3/uL Absolute Nucleated RBC 0.00 x10^3/uL Nucleated RBC % 0.0 /100WBC Sodium 137 (135-145) mmol/L Potassium 2.8 L (3.5-5.0) mmol/L Chloride 109 (101-111) mmol/L Carbon Dioxide 24 (21-32) mmol/L Anion Gap 4.0 L (6-13) BUN 9 (6-20) mg/dL Creatinine 1.2 (0.6-1.2) mg/dL Estimated GFR (MDRD) 60 L (>89) Glucose 130 H (70-100) mg/dL Calcium 7.6 L (8.5-10.3) mg/dL Phosphorus 2.2 L (2.5-4.6) mg/dL Magnesium 1.8 (1.7-2.8) mg/dL ABX Reporting Has patient been on IV antibiotics over the past 48 hours?: No Assessment/Plan - Problem List (1) Perforated abdominal viscus Impression: 10/08 Status post right hemicolectomy, postop day 4. pt denies abdominal pain, N/V but no bowel movement or pass gas today, pt report he is still no appetite. pt has diminished bowel sound on right abdomen and mild to moderate abdomen dis tention but did not show tenderness or guiding or rebound. pt has finished antibiotics per surgeon's note. pt has normal WBC, no fever today. plan: continue followup surgeon, discussed with surgeon, she will come back to see pt today again. consult with transitional living specialist continue clear diet per surgeon, slight reduce D5 IVF since pt's kidney function improved and clinic pt did not show dehydration, hopefully could let pt has more appetite encourage pt ambulate with nurse safely (2) Acute kidney injury Impression: improved/resolved. today his Creatinine is 1.2. pt had 1.3 as his baseline before reduced IVF and continue lab monitor (3) Hypernatremia Impression: Resolved (4)hypokalemia pt's K is 2.8 today, replacement of Potassium and will check this afternoon again (5) poor appetite pt present poor appetite, unknown etiology, pt was Status post right hemicolect jamel, postop day 4. continue consulted with surgeon, consult with transitional living specialist. continue D5 IVF now. lab and vital monitor
--- NOTE | 2019-10-09 10:44 | PROVIDER PROGRESS NOTE ---
Subjective - General Admit Date: 10/03/19 Procedure Date: 10/05/19 Post Op Days: 4 Procedure Performed: right colectomy - Other Other Information/Narrative: Still quite fatigued. Walking in room. Little PO intake on clears, no appetite. Minimal flatus, still mild distension of abdomen. No nausea. Objective - Patient Data Reviewed Vital Signs: Yes Vital Signs: Vital Signs x48h Temp Pulse Resp BP Pulse Ox 10/09/19 07:30 36.8 C 64 16 137/73 H 95 10/09/19 05:21 36.6 C 64 16 142/73 H 93 Intake & Output: Intake and Output Totals x24h 10/07/19 10/08/19 10/09/19 23:59 23:59 23:59 Intake Total 3067.000 3817.083 2185.167 Output Total 1050 2300 1525 Balance 2017.000 1517.083 660.167 - Lab Results Lab Results: 10/09/19 05:15 10/09/19 05:15 Other Lab Results: Lab Results x24hrs 10/09/19 10/09/19 Range/Units 05:15 05:15 WBC 9.4 (4.8-10.8) x10^3/uL RBC 4.25 L (4.70-6.10) 10^6/uL Hgb 12.1 L (14.0-18.0) g/dL Hct 36.9 L (42.0-52.0) % MCV 86.8 (80.0-94.0) fL MCH 28.5 (27.0-31.0) pg MCHC 32.8 (32.0-36.0) g/dL RDW 14.0 (12.0-15.0) % Plt Count 291 (130-450) 10^3/uL MPV 10.6 (7.4-11.4) fL Neut # (Auto) 7.8 H (1.5-6.6) 10^3/uL Lymph # (Auto) 1.1 L (1.5-3.5) 10^3/uL [place] # (Auto) 0.4 (0.0-1.0) 10^3/uL Eos # (Auto) 0.1 (0.0-0.7) 10^3/uL Baso # (Auto) 0.0 (0.0-0.1) 10^3/uL Absolute Nucleated RBC 0.00 x10^3/uL Nucleated RBC % 0.0 /100WBC Sodium 137 (135-145) mmol/L Potassium 2.8 L (3.5-5.0) mmol/L Chloride 109 (101-111) mmol/L Carbon Dioxide 24 (21-32) mmol/L Anion Gap 4.0 L (6-13) BUN 9 (6-20) mg/dL Creatinine 1.2 (0.6-1.2) mg/dL Estimated GFR (MDRD) 60 L (>89) Glucose 130 H (70-100) mg/dL Calcium 7.6 L (8.5-10.3) mg/dL Phosphorus 2.2 L (2.5-4.6) mg/dL Magnesium 1.8 (1.7-2.8) mg/dL - Current Medications Current Medications: Current Medications Generic Name Dose Route Start Last Admin Trade Name Freq PRN Reason Stop Dose Admin Acetaminophen 650 mg 10/03/19 18:35 10/08/19 00:10 Tylenol PO 650 mg Q4HR PRN Administration Pain 1 to 4 Hydroxyzine Pamoate 50 mg 10/04/19 13:57 10/07/19 19:59 Vistaril PO 50 mg QPM PRN Administration Insomnia Potassium Chloride 10 meq in 100 mls @ 100 mls/hr 10/09/19 07:00 10/09/19 10:19 Potassium Chloride IV 10/09/19 10:59 100 mls/hr Q1H PABLO Administration Potassium Chloride/Dextrose/Sod Cl 1,000 mls @ 75 mls/hr 10/09/19 09:08 10/09/19 09:57 D5.45ns W/20 Meq Kcl IV 75 mls/hr .[id number] PABLO Administration Oxycodone HCl 5 mg 10/03/19 18:35 10/08/19 21:38 Roxicodone PO 5 mg Q4HR PRN Administration Pain 5 to 7 Pantoprazole Sodium 40 mg 10/04/19 07:00 10/09/19 05:59 Protonix PO 40 mg QDAC PABLO Administration Sodium Chloride 10 ml 10/03/19 18:35 10/07/19 21:13 Normal Saline Flush 0.9% IVP 10 ml PRN PRN Administration NEEDED PER PROVIDER ORDERS Sodium Chloride 10 ml 10/04/19 01:00 10/09/19 08:25 Normal Saline Flush 0.9% IVP Not Given 0100,0900,1700 [facility] - Physical Exam Comments/Other: AAO, NAD EOMI, MMM unlabored RA soft, moderate distension, incisional soreness as expected, inc c/d/i MAEW Impression/Plan - Problem List Problem List: - fatigued --> combination of poor intake in course before hospital, general anesthesia, and major surgery - NGT removed --> no nausea, stick with CLD for now given poor intake and no appetite plus distension --> clear Boost if able to supplement --> MIVFs at lower rate; PATY improving - pain controlled, has prn morphine and PO narcotic for when taking more PO; holding on toradol due to mild PATY, pt does not seem to need supplements currently but may when local block wearing off and mobilizing more - antibiotics completed - SCDs, chemoprophylaxis - ambulate, OOB, IS
[2019-10-09] MEDS: NEUTRA-PHOS 250 MG TABLET PO SCH ×2 (14:24→16:14)
[2019-10-09] MEDS ORDERED: LIDOCAINE-MPF 2% 5 ML VIAL IM ONE (14:51)
[2019-10-09] MEDS ORDERED: MIDAZOLAM 2 MG/2 ML VIAL IVP ONE (14:51)
[2019-10-09] MEDS ORDERED: ePHEDrine 50 MG/ML VIAL IVP ONE (14:51)
[2019-10-09] MEDS ORDERED: PHENYLEPHRINE 10 MG/ML VIAL IV ONE (14:51)
[2019-10-09] MEDS ORDERED: SUCCINYLCHOLINE 200 MG/10 ML VIAL IVP ONE (14:51)
[2019-10-09] MEDS ORDERED: PROPOFOL 200 MG/20 ML VIAL IVP ONE (14:51)
[2019-10-09] MEDS ORDERED: fentaNYL 100 MCG/2 ML VIAL IVP ONE (14:51)
[2019-10-09] MEDS ORDERED: HYDROmorphone 1 MG/ML SYRINGE IVP ONE (14:51)
[2019-10-09] MEDS: ACETAMINOPHEN 325 MG TABLET PO PRN (16:14)
[2019-10-10] MEDS: SODIUM CHLORIDE FLUSH 0.9% 10 ML SYRINGE IVP SCH ×3 (01:11→16:00)
[2019-10-10] MEDS: hydrOXYzine PAMOATE 25 MG CAPSULE PO PRN (02:08)
[2019-10-10 04:37] LABS: BASOPHILS % (AUTO) 0.2 %; EOSINOPHILS # (AUTO) 0.2 10^3/uL (0.0-0.7); EOSINOPHILS % (AUTO) 2.4 %; HGB - HEMOGLOBIN 13.1 g/dL (14.0-18.0); LYMPHOCYTES # (AUTO) 1.4 10^3/uL (1.5-3.5); LYMPHOCYTES % (AUTO) 14.6 %; MEAN CORPUSCULAR HEMOGLOBIN 28.4 pg (27.0-31.0); MEAN CORPUSCULAR HGB CONC 32.6 g/dL (32.0-36.0); MEAN CORPUSCULAR VOLUME 87.2 fL (80.0-94.0); MEAN PLATELET VOLUME 9.9 fL (7.4-11.4); MONOCYTES # (AUTO) 0.5 10^3/uL (0.0-1.0); MONOCYTES % (AUTO) 5.7 %; NEUTROPHILS # (AUTO) 7.3 10^3/uL (1.5-6.6); NEUTROPHILS % (AUTO) 76.5 %; PLT - PLATELET COUNT 342 10^3/uL (130-450); RED BLOOD COUNT 4.61 10^6/uL (4.70-6.10); RED CELL DISTRIBUTION WIDTH 14.1 % (12.0-15.0); WHITE BLOOD COUNT 9.5 x10^3/uL (4.8-10.8)
[2019-10-10 04:51] LABS: CREATININE 1.1 mg/dL (0.6-1.2); CRP - C-REACTIVE PROTEIN 15.3 mg/dL (0-1.0); MAGNESIUM 1.7 mg/dL (1.7-2.8); PHOSPHORUS 2.8 mg/dL (2.5-4.6)
[2019-10-10] MEDS: PANTOPRAZOLE 40 MG TABLET PO SCH (06:22)
[2019-10-10] MEDS: ACETAMINOPHEN 325 MG TABLET PO PRN (09:08)
[2019-10-10] MEDS: oxyCODONE 5 MG TABLET PO PRN ×3 (09:08→20:44)
[2019-10-10] MEDS ORDERED: ZOLPIDEM 5 MG TABLET PO PRN (10:16)
--- NOTE | 2019-10-10 10:16 | PROVIDER PROGRESS NOTE ---
Subjective - Prog Note Date Prog Note Date: 10/10/19 - Subjective Pt reports feeling: No change Subjective: pt report he has diffused mild abdominal pain. he denies nausea, vomiting, fever, chill, cough, chest pain. pt has no appetite. I called surgeon Dr. Leavitt on today morning, and reported pt's conditions. she will see pt Current Medications - Current Medications Current Medications: Active Medications Acetaminophen (Tylenol) 650 mg PO Q4HR PRN PRN Reason: Pain 1 to 4 Last Admin: 10/10/19 09:08 Dose: 650 mg Hydroxyzine Pamoate (Vistaril) 50 mg PO QPM PRN PRN Reason: Insomnia Last Admin: 10/10/19 02:08 Dose: 50 mg Potassium Chloride/Dextrose/Sod Cl (D5.45ns W/20 Meq Kcl) 1,000 mls @ 75 mls/hr IV .[id number] PABLO Last Infusion: 10/10/19 10:09 Dose: 75 mls/hr Ondansetron HCl (Zofran Inj) 4 mg IVP Q6HR PRN PRN Reason: Nausea / Vomiting Ondansetron HCl (Zofran Odt) 4 mg TL Q6HR PRN PRN Reason: Nausea / Vomiting Oxycodone HCl (Roxicodone) 5 mg PO Q4HR PRN PRN Reason: Pain 5 to 7 Last Admin: 10/10/19 09:08 Dose: 5 mg Pantoprazole Sodium (Protonix) 40 mg PO QDAC [facility] Last Admin: 10/10/19 06:22 Dose: 40 mg Prochlorperazine Edisylate (Compazine Inj) 10 mg IVP Q6HR PRN PRN Reason: Nausea / Vomiting Sodium Chloride (Normal Saline Flush 0.9%) 10 ml IVP PRN PRN PRN Reason: NEEDED PER PROVIDER ORDERS Last Admin: 10/07/19 21:13 Dose: 10 ml Sodium Chloride (Normal Saline Flush 0.9%) 10 ml IVP 0100,0900,1700 [facility] Last Admin: 10/10/19 09:09 Dose: 10 ml Trazodone HCl (Desyrel) 50 mg PO QPM [facility] No Known Home Medications 10/04/19 Objective - Vital Signs/Intake & Output Vital Signs: Vital Signs x48h Temp Pulse Resp BP Pulse Ox 10/10/19 07:54 36.7 C 70 16 148/81 H 95 Intake & Output: Intake & Output 10/07/19 10/08/19 10/09/19 10/10/19 23:59 23:59 23:59 23:59 Intake Total 3067.000 3817.083 3367.667 891.25 Output Total 1050 2300 3025 1975 Balance 2017.000 1517.083 342.667 -1083.75 - Objective General Appearance: positive: No acute distress, Alert. negative: Lethargic Eyes Bilateral: positive: Normal inspection, PERRL ENT: positive: ENT inspection nml, No signs of dehydration. negative: Purulent nasal drainage, Dry mucous membranes Neck: positive: Nml inspection, Thyroid nml, Trachea midline. negative: Thyromegaly, Stiff neck, Tracheal deviation Respiratory: positive: Chest non-tender, No respiratory distress, Breath sounds nml. negative: Wheezes, Rales, Rhonchi Cardiovascular: positive: Regular rate & rhythm, No murmur, No gallop. negative: Irregularly irregular, Extrasystoles, Tachycardia, Bradycardia, JVD present, Systolic murmur, Diastolic murmur Peripheral Pulses: 2+ Radial (R), 2+ Radial (L), 2+ Dorsalis pedis (R), 2+ Dorsalis pedis (L) Abdomen: positive: Non-tender, Abnml bowel sounds (diminished abdominal sound at the right). negative: No distention (mild to moderate extension), Tenderness, Guarding, Rebound Back: positive: Nml inspection. negative: CVA tenderness (R), CVA tenderness (L) Skin: positive: Color nml, No rash, Warm, Dry. negative: Cyanosis, Diaphoresis Extremities: positive: Non-tender, Full ROM, Nml appearance. negative: Rios's sign/cords Neurologic/Psychiatric: positive: Oriented x3, Motor nml, Sensation nml. negative: Weakness, Sensory loss, Facial droop, Slurred/abnml speech - Lab Results Fish Bones: 10/10/19 04:20 10/10/19 04:20 Other Labs: Lab Results x24hrs 10/10/19 10/10/19 10/09/19 Range/Units 04: 04:20 14:18 WBC 9.5 (4.8-10.8) x10^3/uL RBC 4.61 L (4.70-6.10) 10^6/uL Hgb 13.1 L (14.0-18.0) g/dL Hct 40.2 L (42.0-52.0) % MCV 87.2 (80.0-94.0) fL MCH 28.4 (27.0-31.0) pg MCHC 32.6 (32.0-36.0) g/dL RDW 14.1 (12.0-15.0) % Plt Count 342 (130-450) 10^3/uL MPV 9.9 (7.4-11.4) fL Neut # (Auto) 7.3 H (1.5-6.6) 10^3/uL Lymph # (Auto) 1.4 L (1.5-3.5) 10^3/uL [place] # (Auto) 0.5 (0.0-1.0) 10^3/uL Eos # (Auto) 0.2 (0.0-0.7) 10^3/uL Baso # (Auto) 0.0 (0.0-0.1) 10^3/uL Absolute Nucleated RBC 0.00 x10^3/uL Nucleated RBC % 0.0 /100WBC Sodium 135 (135-145) mmol/L Potassium 3.5 3.5 (3.5-5.0) mmol/L Chloride 104 (101-111) mmol/L Carbon Dioxide 23 (21-32) mmol/L Anion Gap 8.0 (6-13) BUN 9 (6-20) mg/dL Creatinine 1.1 (0.6-1.2) mg/dL Estimated GFR (MDRD) 66 L (>89) Glucose 118 H (70-100) mg/dL Calcium 8.0 L (8.5-10.3) mg/dL Phosphorus 2.8 (2.5-4.6) mg/dL Magnesium 1.7 (1.7-2.8) mg/dL C-Reactive Protein 15.3 H (0-1.0) mg/dL ABX Reporting Has patient been on IV antibiotics over the past 48 hours?: No Sepsis Event Note (H) - Evaluation Current Stage of Sepsis: Ruled out Assessment/Plan - Problem List (1) Perforated abdominal viscus Impression: 10/09 Status post right hemicolectomy, postop day 5. discussed with surgeon, she order KUB, and recommend no TPN now. continue to consult with surgeon and net application support specialist, and PT/OT continue IVF continue clear diet 10/08 Status post right hemicolectomy, postop day 4. pt denies abdominal pain, N/V but no bowel movement or pass gas today, pt report he is still no appetite. pt has diminished bowel sound on right abdomen and mild to moderate abdomen distention but did not show tenderness or guiding or rebound. pt has finished antibiotics per surgeon's note. pt has normal WBC, no fever today. plan: continue followup surgeon, discussed with surgeon, she will come back to see pt today again. consult with net application support specialist continue clear diet per surgeon, slight reduce D5 IVF since pt's kidney function improved and clinic pt did not show dehydration, hopefully could let pt has more appetite encourage pt ambulate with nurse safely (2) Acute kidney injury Impression: 10/09 improved/resolved. creatinine 1.1 today improved/resolved. today his Creatinine is 1.2. pt had 1.3 as his baseline before reduced IVF and continue lab monitor (3) Hypernatremia Impression: Resolved (4)hypokalemia 10/09 resolved pt's K is 2.8 today, replacement of Potassium and will check this afternoon again (5) poor appetite 10/09 pt is still poor appetite. pt has hx of poor appetite before. per surgeon's recommendation, we still continue clear diet and IVF, no TPN now. pt present poor appetite, unknown etiology, pt was Status post right hemicolectomy, postop day 4. continue consulted with surgeon, consult with net application support specialist. continue D5 IVF now. lab and vital monitor
--- NOTE | 2019-10-10 10:50 | PROVIDER PROGRESS NOTE ---
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 negative: Nausea, Vomiting, Flatus All Other Systems: positive: Reviewed and negative Objective - Patient Data Vital Signs: Vital Signs x48h Temp Pulse Resp BP Pulse Ox 10/10/19 07:54 36.7 C 70 16 148/81 H 95 Intake & Output: Intake and Output Totals x24h 10/08/19 10/09/19 10/10/19 23:59 23:59 23:59 Intake Total 3817.083 3367.667 891.25 Output Total 2300 3025 1975 Balance 1517.083 342.667 -1083.75 - Lab Results Lab Results: 10/10/19 04:20 10/10/19 04:20 Other Lab Results: Lab Results x24hrs 10/10/19 10/10/19 10/09/19 Range/Units 04:20 04:20 14:18 WBC 9.5 (4.8-10.8) x10^3/uL RBC 4.61 L (4.70-6.10) 10^6/uL Hgb 13.1 L (14.0-18.0) g/dL Hct 40.2 L (42.0-52.0) % MCV 87.2 (80.0-94.0) fL MCH 28.4 (27.0-31.0) pg MCHC 32.6 (32.0-36.0) g/dL RDW 14.1 (12.0-15.0) % Plt Count 342 (130-450) 10^3/uL MPV 9.9 (7.4-11.4) fL Neut # (Auto) 7.3 H (1.5-6.6) 10^3/uL Lymph # (Auto) 1.4 L (1.5-3.5) 10^3/uL [place] # (Auto) 0.5 (0.0-1.0) 10^3/uL Eos # (Auto) 0.2 (0.0-0.7) 10^3/uL Baso # (Auto) 0.0 (0.0-0.1) 10^3/uL Absolute Nucleated RBC 0.00 x10^3/uL Nucleated RBC % 0.0 /100WBC Sodium 135 (135-145) mmol/L Potassium 3.5 3.5 (3.5-5.0) mmol/L Chloride 104 (101-111) mmol/L Carbon Dioxide 23 (21-32) mmol/L Anion Gap 8.0 (6-13) BUN 9 (6-20) mg/dL Creatinine 1.1 (0.6-1.2) mg/dL Estimated GFR (MDRD) 66 L (>89) Glucose 118 H (70-100) mg/dL Calcium 8.0 L (8.5-10.3) mg/dL Phosphorus 2.8 (2.5-4.6) mg/dL Magnesium 1.7 (1.7-2.8) mg/dL C-Reactive Protein 15.3 H (0-1.0) mg/dL - Current Medications Current Medications: Current Medications Generic Name Dose Route Start Last Admin Trade Name Freq PRN Reason Stop Dose Admin Acetaminophen 650 mg 10/03/19 18:35 10/10/19 09:08 Tylenol PO 650 mg Q4HR PRN Administration Pain 1 to 4 Hydroxyzine Pamoate 50 mg 10/04/19 13:57 10/10/19 02:08 Vistaril PO 50 mg QPM PRN Administration Insomnia Potassium Chloride/Dextrose/Sod Cl 1,000 mls @ 75 mls/hr 10/09/19 09:08 10/10/19 10:09 D5.45ns W/20 Meq Kcl IV 75 mls/hr .[id number] PABLO Infusion Oxycodone HCl 5 mg 10/03/19 18:35 10/10/19 09:08 Roxicodone PO 5 mg Q4HR PRN Administration Pain 5 to 7 Pantoprazole Sodium 40 mg 10/04/19 07:00 10/10/19 06:22 Protonix PO 40 mg QDAC PABLO Administration Sodium Chloride 10 ml 10/03/19 18:35 10/07/19 21:13 Normal Saline Flush 0.9% IVP 10 ml PRN PRN Administration NEEDED PER PROVIDER ORDERS Sodium Chloride 10 ml 10/04/19 01:00 10/10/19 09:09 Normal Saline Flush 0.9% IVP 10 ml 0100,0900,1700 PABLO Administration - Physical Exam Wound/Incisions: positive: Healing well, No drainage General Appearance: positive: No acute distress (laying in bed, easy to arouse in NAD) Eyes Bilateral: positive: No scleral icterus Respiratory: positive: Breath sounds nml Cardiovascular: positive: Regular rate & rhythm Abdomen: positive: Other (mild-mod distenstion, belching and hicups, diminished BS present, post operative surgical site pain mild, no R/G/R) Extremities: positive: Full ROM, Nml appearance Neurologic/Psychiatric: positive: Oriented x3 Impression/Plan - Problem List Problem List: POD #5 s/p 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 Patient had a 10-11 days of obstruction prior to surgery and had contained perforation, Given his pre-surgery course it is not surprising that he may have an extended post operative course, I suspect this is an ileus, but will obtain an abd series. IF he continues to have a delayed recovery past POD#7 then we may need to consider CT imaging &/or TPN. This was discussed with the patient and the hospitalist team.
[2019-10-10] MEDS: D5.45NS W/20 MEQ KCL 1,000 ML IV SCH (10:53)
--- NOTE | 2019-10-10 13:47 | XRAY Report ---
Reason: DISTENSION S/P SUGERY Procedure Date: 10/10/2019 Accession Number: [id number] / [id number] Procedure: XR - Abdomen Acute CPT Code: Final Report FULL RESULT: EXAM: ABDOMINAL SERIES AND PA CHEST EXAM DATE: 10/10/2019 10:37 AM. CLINICAL HISTORY: DISTENSION S/P SURGERY. COMPARISON: ABDOMEN 1 VIEW 10/04/2019 2:07 PM ABDOMEN/PELVIS W/ 10/05/2019 10:00 AM. TECHNIQUE: 2 views abdomen and 1 view chest. FINDINGS: The heart is normal in size. There is linear opacity in the left lung base most likely represents atelectasis. There is a small right pleural effusion. Mild diffuse interstitial prominence is unchanged. No visualized pneumothorax. There is mild diffuse dilation of small and large bowel. Multiple air-fluid levels. There is enteric contrast in the rectum. There is a small amount of free air. IMPRESSION: 1. Probable postoperative ileus. A small amount of free air is presumably related to the recent surgery. 2. Small right pleural effusion. Probable left lung base atelectasis. RADIA
[2019-10-10] MEDS: traZODone 50 MG TABLET PO SCH (21:50)
[2019-10-11] MEDS: D5.45NS W/20 MEQ KCL 1,000 ML IV SCH (00:32)
[2019-10-11] MEDS: SODIUM CHLORIDE FLUSH 0.9% 10 ML SYRINGE IVP SCH ×3 (01:16→16:48)
[2019-10-11 04:58] LABS: BASOPHILS % (AUTO) 0.3 %; EOSINOPHILS # (AUTO) 0.2 10^3/uL (0.0-0.7); EOSINOPHILS % (AUTO) 1.7 %; HGB - HEMOGLOBIN 12.4 g/dL (14.0-18.0); LYMPHOCYTES # (AUTO) 1.6 10^3/uL (1.5-3.5); LYMPHOCYTES % (AUTO) 15.4 %; MEAN CORPUSCULAR HEMOGLOBIN 28.6 pg (27.0-31.0); MEAN CORPUSCULAR HGB CONC 32.5 g/dL (32.0-36.0); MEAN CORPUSCULAR VOLUME 87.8 fL (80.0-94.0); MEAN PLATELET VOLUME 9.9 fL (7.4-11.4); MONOCYTES # (AUTO) 0.6 10^3/uL (0.0-1.0); MONOCYTES % (AUTO) 5.9 %; NEUTROPHILS # (AUTO) 7.8 10^3/uL (1.5-6.6); NEUTROPHILS % (AUTO) 75.8 %; PLT - PLATELET COUNT 363 10^3/uL (130-450); RED BLOOD COUNT 4.34 10^6/uL (4.70-6.10); RED CELL DISTRIBUTION WIDTH 13.9 % (12.0-15.0); WHITE BLOOD COUNT 10.3 x10^3/uL (4.8-10.8)
[2019-10-11 05:14] LABS: CALCIUM 7.7 mg/dL (8.5-10.3); CREATININE 1.1 mg/dL (0.6-1.2); CRP - C-REACTIVE PROTEIN 9.2 mg/dL (0-1.0); MAGNESIUM 1.5 mg/dL (1.7-2.8); PHOSPHORUS 2.5 mg/dL (2.5-4.6)
[2019-10-11] MEDS: PANTOPRAZOLE 40 MG TABLET PO SCH (06:34)
[2019-10-11] MEDS ORDERED: MAGNESIUM OXIDE 400 MG TABLET PO SCH (08:00)
[2019-10-11] MEDS ORDERED: MAGNESIUM SULFATE 2 GRAM 2 GM/50 ML BAG IV ONE ×2 (08:00→08:21)
[2019-10-11] MEDS ORDERED: NS W/40 MEQ KCL 1,000 ML IV SCH (09:00)
--- NOTE | 2019-10-11 09:06 | PROVIDER PROGRESS NOTE ---
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 Still passing gas this morning and has a little appetite), Flatus. negative: Nausea, Vomiting All Other Systems: positive: Reviewed and negative Objective - Patient Data Vital Signs: Vital Signs x48h Temp Pulse Resp BP Pulse Ox 10/11/19 07:44 36.3 C L 72 18 122/74 97 Intake & Output: Intake and Output Totals x24h 10/09/19 10/10/19 10/11/19 23:59 23:59 23:59 Intake Total 3367.667 1336.25 2060 Output Total 3025 1975 1550 Balance 342.667 -638.75 510 - Lab Results Lab Results: 10/11/19 04:25 10/11/19 04:25 Other Lab Results: Lab Results x24hrs 10/11/19 10/11/19 Range/Units 04:25 04:25 WBC 10.3 (4.8-10.8) x10^3/uL RBC 4.34 L (4.70-6.10) 10^6/uL Hgb 12.4 L (14.0-18.0) g/dL Hct 38.1 L (42.0-52.0) % MCV 87.8 (80.0-94.0) fL MCH 28.6 (27.0-31.0) pg MCHC 32.5 (32.0-36.0) g/dL RDW 13.9 (12.0-15.0) % Plt Count 363 (130-450) 10^3/uL MPV 9.9 (7.4-11.4) fL Neut # (Auto) 7.8 H (1.5-6.6) 10^3/uL Lymph # (Auto) 1.6 (1.5-3.5) 10^3/uL [place] # (Auto) 0.6 (0.0-1.0) 10^3/uL Eos # (Auto) 0.2 (0.0-0.7) 10^3/uL Baso # (Auto) 0.0 (0.0-0.1) 10^3/uL Absolute Nucleated RBC 0.00 x10^3/uL Nucleated RBC % 0.0 /100WBC Sodium 132 L (135-145) mmol/L Potassium 3.7 (3.5-5.0) mmol/L Chloride 102 (101-111) mmol/L Carbon Dioxide 23 (21-32) mmol/L Anion Gap 7.0 (6-13) BUN 8 (6-20) mg/dL Creatinine 1.1 (0.6-1.2) mg/dL Estimated GFR (MDRD) 66 L (>89) Glucose 113 H (70-100) mg/dL Calcium 7.7 L (8.5-10.3) mg/dL Phosphorus 2.5 (2.5-4.6) mg/dL Magnesium 1.5 L (1.7-2.8) mg/dL C-Reactive Protein 9.2 H (0-1.0) mg/dL - Current Medications Current Medications: Current Medications Generic Name Dose Route Start Last Admin Trade Name Freq PRN Reason Stop Dose Admin Acetaminophen 650 mg 10/03/19 18:35 10/10/19 09:08 Tylenol PO 650 mg Q4HR PRN Administration Pain 1 to 4 Hydroxyzine Pamoate 50 mg 10/04/19 13:57 10/10/19 02:08 Vistaril PO 50 mg QPM PRN Administration Insomnia Magnesium Oxide 400 mg 10/11/19 08:00 10/11/19 08:25 Mag Ox PO 400 mg DAILYWM PABLO Administration Oxycodone HCl 5 mg 10/03/19 18:35 10/10/19 20:44 Roxicodone PO 5 mg Q4HR PRN Administration Pain 5 to 7 Pantoprazole Sodium 40 mg 10/04/19 07:00 10/11/19 06:34 Protonix PO 40 mg QDAC PABLO Administration Sodium Chloride 10 ml 10/03/19 18:35 10/07/19 21:13 Normal Saline Flush 0.9% IVP 10 ml PRN PRN Administration NEEDED PER PROVIDER ORDERS Sodium Chloride 10 ml 10/04/19 01:00 10/11/19 08:35 Normal Saline Flush 0.9% IVP Not Given 0100,0900,1700 PABLO Trazodone HCl 50 mg 10/10/19 21:00 10/10/19 21:50 Desyrel PO 50 mg QPM PABLO Administration - Physical Exam Wound/Incisions: positive: Healing well, No drainage General Appearance: positive: No acute distress Cardiovascular: positive: Regular rate & rhythm Abdomen: positive: Non-tender (mild post operative tenderness), Nml bowel sounds, No distention Impression/Plan - Problem List Problem List: POD #6 s/p open right maria eugenia-colectomy for volvulus, bowel function has returned. Plan to advance his diet, switch him to oral pain medication and wean him off fluids. If he does well I anticipate him going home tomorrow
--- NOTE | 2019-10-11 11:00 | PROVIDER PROGRESS NOTE ---
Assessment/Plan - Problem List (1) Perforated abdominal viscus Assessment/Plan: 10/10 pt felt better, passed gas, he denies N/V and abdominal pain. But he report poor appetite. Surgeon also think pt had a great progress and update his diet. plan D/C on tomorrow if he continue improved 10/09 Status post right hemicolectomy, postop day 5. discussed with surgeon, she order KUB, and recommend no TPN now. continue to consult with surgeon and keel press operator, and PT/OT continue IVF continue clear diet 10/08 Status post right hemicolectomy, postop day 4. pt denies abdominal pain, N/V but no bowel movement or pass gas today, pt report he is still no appetite. pt has diminished bowel sound on right abdomen and mild to moderate abdomen distention but did not show tenderness or guiding or rebound. pt has finished antibiotics per surgeon's note. pt has normal WBC, no fever today. plan: continue followup surgeon, discussed with surgeon, she will come back to see pt today again. consult with keel press operator continue clear diet per surgeon, slight reduce D5 IVF since pt's kidney function improved and clinic pt did not show dehydration, hopefully could let pt has more appetite encourage pt ambulate with nurse safely (2) Acute kidney injury Impression: 10/09 improved/resolved. creatinine 1.1 today improved/resolved. today his Creatinine is 1.2. pt had 1.3 as his baseline before reduced IVF and continue lab monitor (3) Hypernatremia Impression: Resolved (4)hypokalemia 10/09 resolved pt's K is 2.8 today, replacement of Potassium and will check this afternoon again (5) poor appetite 10/10 pt report he is still poor on appetite. discussed with pt and encourage pt for eating, consult with keel press operator, advance diet as tolerated 10/09 pt is still poor appetite. pt has hx of poor appetite before. per surgeon's recommendation, we still continue clear diet and IVF, no TPN now. pt present poor appetite, unknown etiology, pt was Status post right hemicolectomy, postop day 4. continue consulted with surgeon, consult with keel press operator. continue D5 IVF now. lab and vital monitor - Current Meds Current Meds: Current Medications Generic Name Dose Route Start Last Admin Trade Name Freq PRN Reason Stop Dose Admin Acetaminophen 650 mg 10/03/19 18:35 10/10/19 09:08 Tylenol PO 650 mg Q4HR PRN Administration Pain 1 to 4 Hydroxyzine Pamoate 50 mg 10/04/19 13:57 10/10/19 02:08 Vistaril PO 50 mg QPM PRN Administration Insomnia Potassium Chloride/Sodium Chloride 1,000 mls @ 100 mls/hr 10/11/19 09:00 10/11/19 10:06 Normal Saline 0.9% W/40 Meq Kcl IV 100 mls/hr .Q10H PABLO Administration Oxycodone HCl 5 mg 10/03/19 18:35 10/10/19 20:44 Roxicodone PO 5 mg Q4HR PRN Administration Pain 5 to 7 Pantoprazole Sodium 40 mg 10/04/19 07:00 10/11/19 06:34 Protonix PO 40 mg QDAC PABLO Administration Sodium Chloride 10 ml 10/03/19 18:35 10/07/19 21:13 Normal Saline Flush 0.9% IVP 10 ml PRN PRN Administration NEEDED PER PROVIDER ORDERS Sodium Chloride 10 ml 10/04/19 01:00 10/11/19 08:35 Normal Saline Flush 0.9% IVP Not Given 0100,0900,1700 PABLO Trazodone HCl 50 mg 10/10/19 21:00 10/10/19 21:50 Desyrel PO 50 mg QPM PABLO Administration - Lab Result Fish Bone Diagrams: 10/11/19 04:25 10/11/19 04:25 - Additional Planning My Orders: My Active Orders 10/11/19 Social Work Consult [CONS] Routine 10/11/19 07:24 Incentive Spirometry - RT [RC] TID 10/12/19 05:00 BMP - BASIC METABOLIC PANEL [CHEM] DAILYLAB CBC - COMP BLD CT W/AUTO DIFF [HEME] DAILYLAB CRP - C-REACTIVE PROTEIN [CHEM] DAILYLAB MAGNESIUM [CHEM] DAILYLAB 10/13/19 05:00 BMP - BASIC METABOLIC PANEL [CHEM] DAILYLAB CBC - COMP BLD CT W/AUTO DIFF [HEME] DAILYLAB CRP - C-REACTIVE PROTEIN [CHEM] DAILYLAB 10/14/19 05:00 BMP - BASIC METABOLIC PANEL [CHEM] DAILYLAB CBC - COMP BLD CT W/AUTO DIFF [HEME] DAILYLAB 10/15/19 05:00 BMP - BASIC METABOLIC PANEL [CHEM] DAILYLAB CBC - COMP BLD CT W/AUTO DIFF [HEME] DAILYLAB Subjective - Subjective Patient Reports: Feeling Better Objective Vital Signs: Vital Signs - 24 hr 10/10/19 10/10/19 10/11/19 15:55 23:50 07:44 Temperature 36.7 C 36.6 C 36.3 C L Heart Rate [ 68 79 72 Brachial] Respiratory 20 16 18 Rate Blood Pressure 139/79 H 122/74 [Left Brachial artery] Blood Pressure 117/57 L [Right Brachial artery] O2 Saturation 97 96 97 Oxygen O2 Source Room air I&O (Last 24 Hrs): Intake and Output Totals x24h 10/09/19 10/10/19 10/11/19 23:59 23:59 23:59 Intake Total 3367.667 1336.25 2110 Output Total 3025 1975 1550 Balance 342.667 -638.75 560 General: Alert, No acute distress HEENT: Atraumatic Neck: Supple Lymphatic: no adenopathy Neuro: Alert, Non Focal, Oriented Times 3 Cardiovascular: Regular rate, Normal S1, Normal S2 Respiratory: Chest non-tender, No respiratory distress, Breath sounds nml Abdomen: Normal bowel sounds, Soft, No tenderness Extremities: No edema, Normal pulses - Results Results: Laboratory Results WBC 10.3 x10^3/uL (4.8-10.8) 10/11/19 04:25 RBC 4.34 10^6/uL (4.70-6.10) L 10/11/19 04:25 Hgb 12.4 g/dL (14.0-18.0) L 10/11/19 04:25 Hct 38.1 % (42.0-52.0) L 10/11/19 04:25 MCV 87.8 fL (80.0-94.0) 10/11/19 04:25 MCH 28.6 pg (27.0-31.0) 10/11/19 04:25 MCHC 32.5 g/dL (32.0-36.0) 10/11/19 04:25 RDW 13.9 % (12.0-15.0) 10/11/19 04:25 Plt Count 363 10^3/uL (130-450) 10/11/19 04:25 MPV 9.9 fL (7.4-11.4) 10/11/19 04:25 Neut # (Auto) 7.8 10^3/uL (1.5-6.6) H 10/11/19 04:25 Lymph # (Auto) 1.6 10^3/uL (1.5-3.5) 10/11/19 04:25 [place] # (Auto) 0.6 10^3/uL (0.0-1.0) 10/11/19 04:25 Eos # (Auto) 0.2 10^3/uL (0.0-0.7) 10/11/19 04:25 Baso # (Auto) 0.0 10^3/uL (0.0-0.1) 10/11/19 04:25 Absolute Nucleated RBC 0.00 x10^3/uL 10/11/19 04:25 Total Counted 100 10/06/19 04:35 Band Neuts % (Manual) 20 % (0-10) H 10/06/19 04:35 Abnorm Lymph % (Manual) 0 % 10/06/19 04:35 Nucleated RBC % 0.0 /100WBC 10/11/19 04:25 Neutrophils # (Manual) 10.0 10^3/uL (1.5-6.6) H 10/06/19 04:35 Lymphocytes # (Manual) 1.5 10^3/uL (1.5-3.5) 10/06/19 04:35 Monocytes # (Manual) 0.1 10^3/uL (0.0-1.0) 10/06/19 04:35 Eosinophils # (Manual) 0.0 10^3/uL (0-0.7) 10/06/19 04:35 Basophils # (Manual) 0.0 10^3/uL (0-0.1) 10/06/19 04:35 Differential Comment MANUAL DIFFERENTIAL 10/06/19 04:35 WBC Morphology NORMAL APPEARANCE (NORMAL) 10/06/19 04:35 Platelet Estimate NORMAL (130-450,000) (NORMAL) 10/06/19 04:35 Platelet Morphology NORMAL APPEARANCE (NORMAL) 10/06/19 04:35 RBC Morph Micro Appear NORMAL APPEARANCE (NORMAL) 10/06/19 04:35 PT 14.2 secs (9.9-12.6) H 10/03/19 14:00 INR 1.3 (0.8-1.2) H 10/03/19 14:00 Sodium 132 mmol/L (135-145) L 10/11/19 04:25 Potassium 3.7 mmol/L (3.5-5.0) 10/11/19 04:25 Chloride 102 mmol/L (101-111) 10/11/19 04:25 Carbon Dioxide 23 mmol/L (21-32) 10/11/19 04:25 Anion Gap 7.0 (6-13) 10/11/19 04:25 BUN 8 mg/dL (6-20) 10/11/19 04:25 Creatinine 1.1 mg/dL (0.6-1.2) 10/11/19 04:25 Estimated GFR (MDRD) 66 (>89) L 10/11/19 04:25 Glucose 113 mg/dL (70-100) H 10/11/19 04:25 Lactic Acid 0.7 mmol/L (0.5-2.2) 10/04/19 08:58 Calcium 7.7 mg/dL (8.5-10.3) L 10/11/19 04:25 Phosphorus 2.5 mg/dL (2.5-4.6) 10/11/19 04:25 Magnesium 1.5 mg/dL (1.7-2.8) L 10/11/19 04:25 Iron 37 ug/dL (45-182) L 10/05/19 04:49 TIBC 231 ug/dL (250-450) L 10/05/19 04:49 % Saturation 16 % (20-50) L 10/05/19 04:49 Transferrin 165 mg/dL (180-329) L 10/05/19 04:49 Total Bilirubin 0.8 mg/dL (0.2-1.0) 10/05/19 04:20 AST 19 IU/L (10-42) 10/05/19 04:20 ALT 13 IU/L (10-60) 10/05/19 04:20 Alkaline Phosphatase 58 IU/L (42-121) 10/05/19 04:20 C-Reactive Protein 9.2 mg/dL (0-1.0) H 10/11/19 04:25 Total Protein 6.4 g/dL (6.7-8.2) L 10/05/19 04:20 Albumin 2.9 g/dL (3.2-5.5) L 10/05/19 04:20 Globulin 3.5 g/dL (2.1-4.2) 10/05/19 04:20 Albumin/Globulin Ratio 0.8 (1.0-2.2) L 10/05/19 04:20 Lipase 29 U/L (22-51) 10/03/19 14:00 Vitamin B12 1288 pg/mL (180-914) H 10/05/19 04:20 25-OH Vitamin D Total 24 ng/mL (30-100) L 10/04/19 04:40 Urine Color YELLOW 10/03/19 17:05 Urine Clarity CLEAR (CLEAR) 10/03/19 17:05 Urine pH 5.5 PH (5.0-7.5) 10/03/19 17:05 Ur Specific [place] 1.025 (1.002-1.030) 10/03/19 17:05 Urine Protein TRACE mg/dL (NEGATIVE) 10/03/19 17:05 Urine Glucose (UA) NEGATIVE mg/dL (NEGATIVE) 10/03/19 17:05 Urine Ketones TRACE mg/dL (NEGATIVE) 10/03/19 17:05 Urine Occult Blood NEGATIVE (NEGATIVE) 10/03/19 17:05 Urine Nitrite NEGATIVE (NEGATIVE) 10/03/19 17:05 Urine Bilirubin NEGATIVE (NEGATIVE) 10/03/19 17:05 Urine Urobilinogen 0.2 (NORMAL) E.U./dL (NORMAL) 10/03/19 17:05 Ur Leukocyte Esterase NEGATIVE (NEGATIVE) 10/03/19 17:05 Ur Microscopic Review NOT INDICATED 10/03/19 17:05 Urine Culture Comments NOT INDICATED 10/03/19 17:05 Sepsis Event Note (H) - Evaluation Current Stage of Sepsis: Ruled out ABX Reporting Has patient been on IV antibiotics over the past 48 hours?: No Current Medications - Current Medications Current Medications: Active Medications Acetaminophen (Tylenol) 650 mg PO Q4HR PRN PRN Reason: Pain 1 to 4 Last Admin: 10/10/19 09:08 Dose: 650 mg Hydroxyzine Pamoate (Vistaril) 50 mg PO QPM PRN PRN Reason: Insomnia Last Admin: 10/10/19 02:08 Dose: 50 mg Potassium Chloride/Sodium Chloride (Normal Saline 0.9% W/40 Meq Kcl) 1,000 mls @ 100 mls/hr IV .Q10H [facility] Last Admin: 10/11/19 10:06 Dose: 100 mls/hr Ondansetron HCl (Zofran Inj) 4 mg IVP Q6HR PRN PRN Reason: Nausea / Vomiting Ondansetron HCl (Zofran Odt) 4 mg TL Q6HR PRN PRN Reason: Nausea / Vomiting Oxycodone HCl (Roxicodone) 5 mg PO Q4HR PRN PRN Reason: Pain 5 to 7 Last Admin: 10/10/19 20:44 Dose: 5 mg Pantoprazole Sodium (Protonix) 40 mg PO QDAC [facility] Last Admin: 10/11/19 06:34 Dose: 40 mg Prochlorperazine Edisylate (Compazine Inj) 10 mg IVP Q6HR PRN PRN Reason: Nausea / Vomiting Sodium Chloride (Normal Saline Flush 0.9%) 10 ml IVP PRN PRN PRN Reason: NEEDED PER PROVIDER ORDERS Last Admin: 10/07/19 21:13 Dose: 10 ml Sodium Chloride (Normal Saline Flush 0.9%) 10 ml IVP 0100,0900,1700 [facility] Last Admin: 10/11/19 08:35 Dose: Not Given Trazodone HCl (Desyrel) 50 mg PO QPM [facility] Last Admin: 10/10/19 21:50 Dose: 50 mg No Known Home Medications 10/04/19
--- NOTE | 2019-10-11 14:56 | PROVIDER PROGRESS NOTE ---
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 negative: Nausea, Vomiting All Other Systems: positive: Reviewed and negative Objective - Patient Data Vital Signs: Vital Signs x48h Temp Pulse Resp BP Pulse Ox 10/11/19 07:44 36.3 C L 72 18 122/74 97 Weight: Weight 10/09/19 10/10/19 10/11/19 23:59 23:59 23:59 Weight (kg) 60.5 kg Intake & Output: Intake and Output Totals x24h 10/09/19 10/10/19 10/11/19 23:59 23:59 23:59 Intake Total 3367.667 1336.25 2110 Output Total 3025 1975 1550 Balance 342.667 -638.75 560 - Lab Results Lab Results: 10/11/19 04:25 10/11/19 04:25 Other Lab Results: Lab Results x24hrs 10/11/19 10/11/19 Range/Units 04:25 04:25 WBC 10.3 (4.8-10.8) x10^3/uL RBC 4.34 L (4.70-6.10) 10^6/uL Hgb 12.4 L (14.0-18.0) g/dL Hct 38.1 L (42.0-52.0) % MCV 87.8 (80.0-94.0) fL MCH 28.6 (27.0-31.0) pg MCHC 32.5 (32.0-36.0) g/dL RDW 13.9 (12.0-15.0) % Plt Count 363 (130-450) 10^3/uL MPV 9.9 (7.4-11.4) fL Neut # (Auto) 7.8 H (1.5-6.6) 10^3/uL Lymph # (Auto) 1.6 (1.5-3.5) 10^3/uL [place] # (Auto) 0.6 (0.0-1.0) 10^3/uL Eos # (Auto) 0.2 (0.0-0.7) 10^3/uL Baso # (Auto) 0.0 (0.0-0.1) 10^3/uL Absolute Nucleated RBC 0.00 x10^3/uL Nucleated RBC % 0.0 /100WBC Sodium 132 L (135-145) mmol/L Potassium 3.7 (3.5-5.0) mmol/L Chloride 102 (101-111) mmol/L Carbon Dioxide 23 (21-32) mmol/L Anion Gap 7.0 (6-13) BUN 8 (6-20) mg/dL Creatinine 1.1 (0.6-1.2) mg/dL Estimated GFR (MDRD) 66 L (>89) Glucose 113 H (70-100) mg/dL Calcium 7.7 L (8.5-10.3) mg/dL Phosphorus 2.5 (2.5-4.6) mg/dL Magnesium 1.5 L (1.7-2.8) mg/dL C-Reactive Protein 9.2 H (0-1.0) mg/dL - Current Medications Current Medications: Current Medications Generic Name Dose Route Start Last Admin Trade Name Freq PRN Reason Stop Dose Admin Acetaminophen 650 mg 10/03/19 18:35 10/10/19 09:08 Tylenol PO 650 mg Q4HR PRN Administration Pain 1 to 4 Hydroxyzine Pamoate 50 mg 10/04/19 13:57 10/10/19 02:08 Vistaril PO 50 mg QPM PRN Administration Insomnia Potassium Chloride/Sodium Chloride 1,000 mls @ 100 mls/hr 10/11/19 09:00 09/25 12/14 10:06 Normal Saline 0.9% W/40 Meq Kcl IV 100 mls/hr .Q10H PABLO Administration Oxycodone HCl 5 mg 10/03/19 18:35 10/10/19 20:44 Roxicodone PO 5 mg Q4HR PRN Administration Pain 5 to 7 Pantoprazole Sodium 40 mg 10/04/19 07:00 10/11/19 06:34 Protonix PO 40 mg QDAC PABLO Administration Sodium Chloride 10 ml 10/03/19 18:35 10/07/19 21:13 Normal Saline Flush 0.9% IVP 10 ml PRN PRN Administration NEEDED PER PROVIDER ORDERS Sodium Chloride 10 ml 10/04/19 01:00 10/11/19 08:35 Normal Saline Flush 0.9% IVP Not Given 0100,0900,1700 PABLO Trazodone HCl 50 mg 10/10/19 21:00 10/10/19 21:50 Desyrel PO 50 mg QPM PABLO Administration - Physical Exam Wound/Incisions: positive: Healing well, No drainage, Other (ron removed by RN and steri-strips placed) General Appearance: positive: No acute distress Respiratory: positive: No respiratory distress Cardiovascular: positive: Regular rate & rhythm Abdomen: positive: Non-tender, Nml bowel sounds, No distention Impression/Plan - Problem List Problem List: POD #6 doing well this afternoon. If he continue this way he will be ready for discharge home tomorrow from a surgical standpoint.
[2019-10-11] MEDS: NS W/40 MEQ KCL 1,000 ML IV SCH (20:22)
[2019-10-11] MEDS: oxyCODONE 5 MG TABLET PO PRN (20:23)
[2019-10-11] MEDS: traZODone 50 MG TABLET PO SCH (21:06)
[2019-10-12] MEDS: SODIUM CHLORIDE FLUSH 0.9% 10 ML SYRINGE IVP SCH ×2 (00:57→08:42)
[2019-10-12 06:02] LABS: BASOPHILS % (AUTO) 0.3 %; EOSINOPHILS # (AUTO) 0.1 10^3/uL (0.0-0.7); EOSINOPHILS % (AUTO) 1.5 %; HGB - HEMOGLOBIN 12.4 g/dL (14.0-18.0); LYMPHOCYTES # (AUTO) 1.6 10^3/uL (1.5-3.5); LYMPHOCYTES % (AUTO) 16.9 %; MEAN CORPUSCULAR HEMOGLOBIN 29.6 pg (27.0-31.0); MEAN CORPUSCULAR HGB CONC 33.2 g/dL (32.0-36.0); MEAN CORPUSCULAR VOLUME 89.3 fL (80.0-94.0); MEAN PLATELET VOLUME 9.7 fL (7.4-11.4); MONOCYTES # (AUTO) 0.7 10^3/uL (0.0-1.0); NEUTROPHILS % (AUTO) 73.3 %; PLT - PLATELET COUNT 376 10^3/uL (130-450); RED BLOOD COUNT 4.19 10^6/uL (4.70-6.10); RED CELL DISTRIBUTION WIDTH 13.9 % (12.0-15.0); WHITE BLOOD COUNT 9.6 x10^3/uL (4.8-10.8)
[2019-10-12 06:20] LABS: CALCIUM 7.9 mg/dL (8.5-10.3); CREATININE 1.1 mg/dL (0.6-1.2); CRP - C-REACTIVE PROTEIN 8.9 mg/dL (0-1.0)
[2019-10-12] MEDS: PANTOPRAZOLE 40 MG TABLET PO SCH (06:23)
--- NOTE | 2019-10-12 09:52 | PROVIDER PROGRESS NOTE ---
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 negative: Nausea, Vomiting All Other Systems: positive: Reviewed and negative Objective - Patient Data Vital Signs: Vital Signs x48h Temp Pulse Resp BP Pulse Ox 10/12/19 08:12 36.1 C L 85 20 120/63 95 Weight: Weight 10/10/19 10/11/19 10/12/19 23:59 23:59 23:59 Weight (kg) 60.5 kg Intake & Output: Intake and Output Totals x24h 10/10/19 10/11/19 10/12/19 23:59 23:59 23:59 Intake Total 1336.25 3510 120 Output Total 1975 1550 950 Balance -638.75 1960 -830 - Lab Results Lab Results: 10/12/19 05:36 10/12/19 05:36 Other Lab Results: Lab Results x24hrs 10/12/19 10/12/19 Range/Units 05:36 05:36 WBC 9.6 (4.8-10.8) x10^3/uL RBC 4.19 L (4.70-6.10) 10^6/uL Hgb 12.4 L (14.0-18.0) g/dL Hct 37.4 L (42.0-52.0) % MCV 89.3 (80.0-94.0) fL MCH 29.6 (27.0-31.0) pg MCHC 33.2 (32.0-36.0) g/dL RDW 13.9 (12.0-15.0) % Plt Count 376 (130-450) 10^3/uL MPV 9.7 (7.4-11.4) fL Neut # (Auto) 7.0 H (1.5-6.6) 10^3/uL Lymph # (Auto) 1.6 (1.5-3.5) 10^3/uL [place] # (Auto) 0.7 (0.0-1.0) 10^3/uL Eos # (Auto) 0.1 (0.0-0.7) 10^3/uL Baso # (Auto) 0.0 (0.0-0.1) 10^3/uL Absolute Nucleated RBC 0.00 x10^3/uL Nucleated RBC % 0.0 /100WBC Sodium 134 L (135-145) mmol/L Potassium 3.9 (3.5-5.0) mmol/L Chloride 104 (101-111) mmol/L Carbon Dioxide 22 (21-32) mmol/L Anion Gap 8.0 (6-13) BUN 11 (6-20) mg/dL Creatinine 1.1 (0.6-1.2) mg/dL Estimated GFR (MDRD) 66 L (>89) Glucose 96 (70-100) mg/dL Calcium 7.9 L (8.5-10.3) mg/dL Magnesium 2.0 (1.7-2.8) mg/dL C-Reactive Protein 8.9 H (0-1.0) mg/dL - Current Medications Current Medications: Current Medications Generic Name Dose Route Start Last Admin Trade Name Freq PRN Reason Stop Dose Admin Acetaminophen 650 mg 10/03/19 18:35 10/10/19 09:08 Tylenol PO 650 mg Q4HR PRN Administration Pain 1 to 4 Hydroxyzine Pamoate 50 mg 10/04/19 13:57 10/10/19 02:08 Vistaril PO 50 mg QPM PRN Administration Insomnia Potassium Chloride/Sodium Chloride 1,000 mls @ 50 mls/hr 10/11/19 14:57 10/11/19 20:22 Normal Saline 0.9% W/40 Meq Kcl IV 50 mls/hr .Q20H [place] Administration Oxycodone HCl 5 mg 10/03/19 18:35 10/11/19 20:23 Roxicodone PO 5 mg Q4HR PRN Administration Pain 5 to 7 Pantoprazole Sodium 40 mg 10/04/19 07:00 10/12/19 06:23 Protonix PO 40 mg QDAC PABLO Administration Sodium Chloride 10 ml 10/03/19 18:35 10/07/19 21:13 Normal Saline Flush 0.9% IVP 10 ml PRN PRN Administration NEEDED PER PROVIDER ORDERS Sodium Chloride 10 ml 10/04/19 01:00 10/12/19 08:42 Normal Saline Flush 0.9% IVP Not Given 0100,0900,1700 PABLO Trazodone HCl 50 mg 10/10/19 21:00 10/11/19 21:06 Desyrel PO 50 mg QPM PABLO Administration - Physical Exam Wound/Incisions: positive: Healing well, No drainage General Appearance: positive: No acute distress Respiratory: positive: Breath sounds nml Cardiovascular: positive: Regular rate & rhythm Abdomen: positive: Non-tender, Nml bowel sounds, No distention Impression/Plan - Problem List Problem List: POD #7 s/p open right hemicolectomy, tolerating food, doing well with oral pain medication, ambulating well, ok to d/c home with outpatient follow up from a surgical standpoint
--- NOTE | 2019-10-12 10:27 | Discharge Plan ---
Discharge Plan Problem Reviewed?: Yes Disposition: Home, Self Care Condition: Stable Prescriptions: oxyCODONE [Roxicodone] 5 mg PO Q4HR PRN #15 tablet PRN Reason: Pain 5 to 7 Diet: Soft Activity Restrictions: Activity as Tolerated Shower Restrictions: No (fall precaution) Instruction Topics: Oxycodone tablets or capsules Health Concerns: status post of right hemicolectomy. Plan of Treatment: status post of right hemicolectomy, you tolerate diet, your pain is controlled and you have no nausea and vomiting. oxycodone is prescribed for your pain as PRN. you may followup your PCP in one week and followup surgeon as outpatient. Care Goals: improvement or resolved of your medical need. Assessment: discussed with you the care plan, you understood. Additional Instructions or Follow Up instructions: you may followup your PCP in one week and followup surgeon as outpatient. Should your symptoms return or worsen, you may present ER or call 911 for help. No Smoking: If you smoke, Please STOP! Call for help.
--- NOTE | 2019-10-12 10:46 | DISCHARGE SUMMARY ---
"Discharge Summary Admit Date: 10/03/19 Discharge Date: 10/12/19 Discharging Provider: Chino Delgado Condition at Discharge: Stable Discharge Disposition: 01 Home, Self Care Discharge Facility Name: home - DIAGNOSES Admission Diagnoses: (1) Perforated abdominal viscus (2) Small bowel obstruction (3) Acute kidney injury Discharge Diagnoses with Status of Each Condition: (1) Perforated abdominal viscus resolved. pt had right hemicolectomy. pt tolerate diet without nausea, vomiting. pt denies abdominal pain. surgeon d/c pt as well. (2) Acute kidney injury resolved (3) Hypernatremia resolved (4)hypokalemia resolved (5) poor appetite resolved as pt's baseline - HPI History of Present Illness: refer from Dr. Leavitt's HPI on 10/03/2019 Conor is a very pleasant 74 yo WM who came into the ER due to nausea/vomiting, abdominal pain and lack of BM/passing gas which all started 8 days ago. He reports he started with moderate-severe cramping periumbilical pain that was at it's worst 5 days ago and has lessened but not resolved. It is associated with nausea and vomiting which started about 4-5 days ago the nausea became worse and started vomiting. He stopped passing gas at that time as well. He hasn't had an appetite for the entire time and wasn't able to keep anything down except water for the last 5 days. He also reports his last BM was about 10 days ago. He tried lost of laxatives which haven't had any success. He has had an episode like this about a year ago, after 3-4 days he developed swelling of his tongue and went to the ER and was given IV steroids and sent home on steroids and he reports his bowel symptoms and his swelling resolved and hasn't had an episode since. He also reports a 7 year history of diarrhea. He describes it as 2-3 non-formed loose stools a day, he doesn't remember it following a particular incident just started. There is some variation with food choices. He did not go see anyone about this. He has not had any scopes done or any workup. - CONSULTS | PROCEDURES Consultations: Dr. Leavitt and Dr. Bean Procedures: right hemicolectomy - HOSPITAL COURSE Hospital Course: pt was admitted for small bowel obstruction, then pt developed perforated abdominal viscus. pt had right hemicolectomy done by surgeon. pt recovery from surgery slowly. Finally pt recovered. pt tolerate regular without pain, nausea. vomiting. pt was d/c by surgeon. pt is prescribed pain meds, Oxycodone PRN. The detail hospital course is as the following. (1) Perforated abdominal viscus resolved. pt had right hemicolectomy. pt tolerate diet without nausea, vomiting. pt denies abdominal pain. surgeon d/c pt as well. (2) Acute kidney injury resolved (3) Hypernatremia resolved (4)hypokalemia resolved (5) poor appetite resolved as pt's baseline - ALLERGIES Allergies/Adverse Reactions: Allergies Allergy/AdvReac Type Severity Reaction Status Date / Time No Known Drug Allergies Allergy Verified 10/03/19 13:56 - MEDICATIONS Home Medications: Ambulatory Orders Medication Instructions Recorded Confirmed oxyCODONE [Roxicodone] 5 mg PO Q4HR PRN #15 tablet 10/12/19 - PHYSICAL EXAM AT DISCHARGE General Appearance: positive: No acute distress, Alert. negative: Lethargic Eyes Bilateral: positive: Normal inspection, PERRL, EOMI, No lid inflammation ENT: positive: ENT inspection nml, Pharynx nml, No signs of dehydration. negative: Purulent nasal drainage Neck: positive: Nml inspection, Thyroid nml, No JVD, Trachea midline. negative: Thyromegaly, Lymphadenopathy (R), Lymphadenopathy (L), Stiff neck, Tracheal deviation Respiratory: positive: Chest non-tender, No respiratory distress, Breath sounds nml. negative: Wheezes, Rales, Rhonchi Cardiovascular: positive: Regular rate & rhythm, No murmur, No gallop. negative: Irregularly irregular, Extrasystoles, Tachycardia, Bradycardia, JVD present, Systolic murmur, Diastolic murmur Peripheral Pulses: positive: 2+ Abdomen: positive: Non-tender, No organomegaly, Nml bowel sounds. negative: Tenderness, Guarding, Rebound Back: positive: Nml inspection. negative: CVA tenderness (R), CVA tenderness (L) Skin: positive: Color nml, No rash, Warm, Dry. negative: Cyanosis, Diaphoresis, Pallor Extremities: positive: Non-tender, Full ROM, Nml appearance. negative: Calf tenderness, Rios's sign/cords Neurologic/Psychiatric: positive: Oriented x3, Motor nml, Sensation nml, Mood/affect nml. negative: Weakness, Sensory loss, Facial droop, Slurred/abnml speech, Depressed mood/affect - LABS Result Diagrams: 10/12/19 05:36 10/12/19 05:36 - SEPSIS Current Stage of Sepsis: Ruled out - FOLLOW UP Follow Up: status post of right hemicolectomy, you tolerate diet, your pain is controlled and you have no nausea and vomiting. oxycodone is prescribed for your pain as PRN. you may followup your PCP in one week and followup surgeon as outpatient. you may followup your PCP in one week and followup surgeon as outpatient. Should your symptoms return or worsen, you may present ER or call 911 for help. - TIME SPENT Time Spent in Discharge (Minutes): 30"
[2019-10-12 11:12] VITALS: BP 123/63
[2019-10-12] MEDS: NS W/40 MEQ KCL 1,000 ML IV SCH (12:13)
== END 2019-10-12 12:54 | disposition home or self-care (01) | DRG 329 ==
LOC: ED 13:38 → MS2 18:35
PROVIDERS: ADMIT Family Medicine Sports Medicine; ATTEND Nurse Practitioner Gerontology
PROC: 0DTF0ZZ Resection of Right Large Intestine, Open Approach (ICD-10-PCS; principal; 2019-10-05 12:00)
DX: K56.609 Unspecified intestinal obstruction, unspecified as to partial versus complete obstruction (principal); K56.2 Volvulus; K63.1 Perforation of intestine (nontraumatic); N17.9 Acute kidney failure, unspecified; E87.0 Hyperosmolality and hypernatremia; Z68.1 Body mass index [BMI] 19.9 or less, adult; E87.6 Hypokalemia; E86.0 Dehydration; R63.0 Anorexia; M79.631 Pain in right forearm; R19.7 Diarrhea, unspecified; F17.210 Nicotine dependence, cigarettes, uncomplicated; Z86.73 Personal history of transient ischemic attack (TIA), and cerebral infarction without residual deficits
CPT/HCPCS: 36415; 73070; 74022; 74176; 74177; 80048; 80053; 81003; 82306; 82607; 83540; 83605; 83690; 83735; 84100; 84132; 84466; 85025; 85027; 85610; 86140; 96361; 96365; 96367; 97116; 97161; 97166; 97530; 97535; 99285; A9270; J0330; J1170; J7120; Q9967; 71045; 81001; 87086

== ENCOUNTER 2019-11-14 12:29 | Emergency (ER) | payer MEDICARE, OTHER ==
[2019-11-14 14:03] LABS: BASOPHILS # (AUTO) 0.1 10^3/uL (0.0-0.1); BASOPHILS % (AUTO) 0.7 %; EOSINOPHILS # (AUTO) 0.1 10^3/uL (0.0-0.7); EOSINOPHILS % (AUTO) 0.9 %; HGB - HEMOGLOBIN 15.9 g/dL (14.0-18.0); LYMPHOCYTES % (AUTO) 21.3 %; MEAN CORPUSCULAR HEMOGLOBIN 29.8 pg (27.0-31.0); MEAN CORPUSCULAR HGB CONC 33.5 g/dL (32.0-36.0); MEAN CORPUSCULAR VOLUME 88.9 fL (80.0-94.0); MEAN PLATELET VOLUME 10.5 fL (7.4-11.4); MONOCYTES # (AUTO) 0.6 10^3/uL (0.0-1.0); MONOCYTES % (AUTO) 6.3 %; NEUTROPHILS # (AUTO) 6.5 10^3/uL (1.5-6.6); NEUTROPHILS % (AUTO) 70.5 %; PLT - PLATELET COUNT 368 10^3/uL (130-450); RED BLOOD COUNT 5.33 10^6/uL (4.70-6.10); RED CELL DISTRIBUTION WIDTH 14.4 % (12.0-15.0); WHITE BLOOD COUNT 9.2 x10^3/uL (4.8-10.8)
--- NOTE | 2019-11-14 14:09 | ED Physician Documentation ---
History of Present Illness - Stated complaint Stated Complaint: COUGH - Chief complaint Chief Complaint: Resp - History obtained from History obtained from: Patient - Additonal information Additional information: Patient comes emergency department complaining of a cough productive of a moderate amount of white sputum for the last 3 to 4 days. Patient states that he has not had any fevers or chills and otherwise, has felt fairly well, except for some vomiting that he had last night. Patient within the last several weeks had a bowel obstruction with hemicolectomy and has been recovering from that at home. He states his recovery has been going well and that actually, he has been able to eat and have bowel movements without difficulty. Patient is here because he is concerned about possible pneumonia, which he states he has had before and felt very similar. Patient denies dyspnea currently, but states he feels a little "tired". No CP. No other complaints at this time. Review of Systems Ten Systems: 10 systems reviewed and negative Constitutional: reports: Reviewed and negative Eyes: reports: Reviewed and negative Ears: reports: Reviewed and negative Nose: reports: Reviewed and negative Throat: reports: Reviewed and negative Cardiac: reports: Reviewed and negative Respiratory: reports: Cough GI: reports: Reviewed and negative : reports: Reviewed and negative Skin: reports: Reviewed and negative Musculoskeletal: reports: Reviewed and negative Neurologic: reports: Reviewed and negative Psychiatric: reports: Reviewed and negative Endocrine: reports: Reviewed and negative Immunocompromised: reports: Reviewed and negative PD PAST MEDICAL HISTORY - Past Medical History Cardiovascular: None Respiratory: None Neuro: TIA Endocrine/Autoimmune: None GI: None : None HEENT: None Psych: None Musculoskeletal: None Derm: None - Past Surgical History Past Surgical History: No HEENT: Other - Present Medications Home Medications: Ambulatory Orders Medication Instructions Recorded Confirmed oxyCODONE [Roxicodone] 5 mg PO Q4HR PRN #15 tablet 10/12/19 - Allergies Allergies/Adverse Reactions: Allergies Allergy/AdvReac Type Severity Reaction Status Date / Time No Known Drug Allergies Allergy Verified 11/14/19 12:40 - Social History Does the pt smoke?: No Smoking Status: Never smoker Does the pt drink ETOH?: Yes Does the pt have substance abuse?: No - Immunizations Immunizations are current?: No - POLST Patient has POLST: No POLST Status: Full Code PD ED PE NORMAL - Vitals Vital signs reviewed: Yes - General General: Alert and oriented X 3, No acute distress - HEENT HEENT: Atraumatic, PERRL, EOMI, Moist mucous membranes - Neck Neck: Supple, no meningeal sign - Cardiac Cardiac: RRR, No murmur, Strong equal pulses - Respiratory Respiratory: No respiratory distress, Clear bilaterally - Abdomen Abdomen: Soft, Non tender, Non distended, Other (Surgical incision in the midline upper abdomen is healing well. No evidence of wound infection.) - Back Back: No CVA TTP - Derm Derm: Normal color, Warm and dry, No rash - Extremities Extremities: No deformity, No edema, No calf tenderness / cord - Neuro Neuro: Alert and oriented X 3 - Psych Psych: Normal mood, Normal affect Results - Vitals Vitals: Vital Signs - 24 hr 11/14/19 11/14/19 11/14/19 12:36 14:34 16:00 Temperature 36.7 C Heart Rate 102 H 80 76 Respiratory 16 16 18 Rate Blood Pressure 127/89 H 109/78 124/61 O2 Saturation 99 98 98 Oxygen O2 Source Room air - Labs Labs: Laboratory Tests 11/14/19 11/14/19 13:10 13:10 WBC 9.2 RBC 5.33 Hgb 15.9 Hct 47.4 MCV 88.9 MCH 29.8 MCHC 33.5 RDW 14.4 Plt Count 368 MPV 10.5 Neut # (Auto) 6.5 Lymph # (Auto) 2.0 Hettinger # (Auto) 0.6 Eos # (Auto) 0.1 Baso # (Auto) 0.1 Absolute Nucleated RBC 0.00 Nucleated RBC % 0.0 Sodium 140 Potassium 3.2 L Chloride 102 Carbon Dioxide 23 Anion Gap 15.0 H BUN 30 H Creatinine 1.6 H Estimated GFR (MDRD) 43 L Glucose 99 Calcium 10.0 Total Bilirubin 0.9 AST 24 ALT 19 Alkaline Phosphatase 88 Total Protein 9.0 H Albumin 4.6 Globulin 4.4 H Albumin/Globulin Ratio 1.0 Lipase 30 - Rads (name of study) Chest x-ray Radiology: Final report received, EMP read indepedently, See rad report (No acute cardiopulmonary abnormality noted.) PD MEDICAL DECISION MAKING - ED course Complexity details: reviewed old records, reviewed results, re-evaluated patient, considered differential, d/w patient ED course: Patient was worked up with labs and chest x-ray. Patient was found to have normal labs for the most part and a negative chest x-ray. I am not certain what has caused his cough, though there is no evidence of an infectious process at this time. Additionally, patient did have vomiting last night, but is afebrile in the emergency department, has a normal white blood cell count, and a benign abdominal exam, and no evidence of problems at the surgical site. As such, I do not find indication for further imaging or work-up regarding this. I discussed with the patient the most likely, he has 1 of the viral illnesses that wound. At this point in time he has good oxygen saturation and otherwise is fairly well-appearing and I feel he stable for discharge home. We have discussed home management of symptoms, as well as usual indications for return. Departure - Departure Disposition: 01 Home, Self Care Clinical Impression: Cough Condition: Stable Instructions: ED Cough Chronic Cause Unkn Comments: Your labs and your chest x-ray look great. There is no evidence of pneumonia on your chest x-ray, and your white blood cell count is normal. Your surgical wound appears to be healing very well. At this point in time, you may have picked up 1 of the many viruses that go around and cause benign illness.
[2019-11-14 14:13] LABS: ALBUMIN 4.6 g/dL (3.2-5.5); BILIRUBIN,TOTAL 0.9 mg/dL (0.2-1.0); CREATININE 1.6 mg/dL (0.6-1.2)
--- NOTE | 2019-11-14 14:41 | XRAY Report ---
Reason: cough Procedure Date: 11/14/2019 Accession Number: [id number] / [id number] Procedure: XR - Chest 2 View X-Ray CPT Code: 20285 Final Report FULL RESULT: EXAM: CHEST RADIOGRAPHY EXAM DATE: 11/14/2019 02:16 PM. CLINICAL HISTORY: Cough. COMPARISON: ABDOMEN ACUTE 10/10/2019 10:30 AM. TECHNIQUE: 2 views. FINDINGS: Lungs/Pleura: No focal opacities evident. No pleural effusion. No pneumothorax. Normal volumes. Mediastinum: Heart and mediastinal contours are notable for aortic calcification. Other: None. IMPRESSION: No acute cardiopulmonary abnormality demonstrated. RADIA
[2019-11-14 16:27] VITALS: BP 129/81
== END 2019-11-14 16:30 | disposition home or self-care (01) ==
LOC: ED 12:29
DX: R05 Cough (principal)
CPT/HCPCS: 36415; 71046; 80053; 83690; 85025; 99284

== ENCOUNTER 2021-08-03 12:27 | Inpatient (IN) | payer MEDICARE, OTHER ==
--- NOTE | 2021-08-03 13:35 | XRAY Report ---
PROCEDURE: Chest 2 View X-Ray INDICATIONS: cough TECHNIQUE: 2 view(s) of the chest. COMPARISON: Chest x-ray 11/14/2019 FINDINGS: Surgical changes and devices: None. Lungs and pleura: There is a very minimal appearance of streaky opacity within the right base. Lungs are hyperinflated suggestive COPD. Mediastinum: Mediastinal contours are normal. Heart size is normal. Bones and chest wall: No suspicious bony abnormalities. Soft tissues appear unremarkable. IMPRESSION: Very minimal streaky right basilar opacity possibly representing developing pneumonia. Reviewed by: Latricia Rodriguez MD on 08/03/2021 1:34 PM PST Approved by: Latricia Rodriguez MD on 08/03/2021 1:34 PM PST Station ID: [id number]
[2021-08-03] MEDS ORDERED: ALBUTEROL 1 PUFF INH STA (14:56)
[2021-08-03] MEDS ORDERED: predniSONE 20 MG TABLET PO STA (14:56)
[2021-08-03] MEDS ORDERED: AMOX/CLAV 875 MG/125 MG TABLET PO STA (14:57)
[2021-08-03] MEDS ORDERED: DOXYCYCLINE 100 MG TABLET PO STA (14:57)
--- NOTE | 2021-08-03 15:00 | ED Physician Documentation ---
History of Present Illness - Stated complaint Stated Complaint: COUGH, NOT EATING - Chief complaint Chief Complaint: Resp - History obtained from History obtained from: Patient - History of Present Illness Timing: How many days ago Pain level max: 0 Pain level now: 0 - Additonal information Additional information: 76-year-old male states that he has had a cough for the past 3 to 4 days. Has a history of COPD but does not take any medications for this. He states that he quit smoking a few months ago. The cough is mainly dry. Denies any fevers. No chest pain. Mild shortness of breath. Worse with exertion, better with rest. Patient states that he is currently not on any medications at home. He is not Covid vaccinated. Review of Systems Constitutional: denies: Fever, Chills Nose: denies: Rhinorrhea / runny nose, Congestion Throat: denies: Sore throat Cardiac: denies: Chest pain / pressure, Palpitations Respiratory: reports: Dyspnea, Cough, Wheezing : denies: Dysuria Skin: denies: Rash Musculoskeletal: denies: Neck pain, Back pain Neurologic: denies: Headache PD PAST MEDICAL HISTORY - Past Medical History Cardiovascular: None Respiratory: None Neuro: TIA Endocrine/Autoimmune: None GI: None : None HEENT: None Psych: None Musculoskeletal: None Derm: None - Past Surgical History Past Surgical History: No HEENT: Other - Present Medications Home Medications: Ambulatory Orders Medication Instructions Recorded Confirmed oxyCODONE [Roxicodone] 5 mg PO Q4HR PRN #15 tablet 10/12/19 - Allergies Allergies/Adverse Reactions: Allergies Allergy/AdvReac Type Severity Reaction Status Date / Time No Known Drug Allergies Allergy Verified 08/03/21 12:33 - Social History Does the pt smoke?: No Smoking Status: Never smoker Does the pt drink ETOH?: Yes Does the pt have substance abuse?: No - Immunizations Immunizations are current?: No - POLST Patient has POLST: No POLST Status: Full Code PD ED PE NORMAL - Vitals Vital signs reviewed: Yes - General General: Alert and oriented X 3, No acute distress, Other (Thin, dehydrated appearing) - HEENT HEENT: PERRL, Other (Dry lips and tongue.) - Neck Neck: Supple, no meningeal sign - Cardiac Cardiac: RRR, Strong equal pulses - Respiratory Respiratory: No respiratory distress, Clear bilaterally - Abdomen Abdomen: Soft, Non tender, Non distended - Derm Derm: Warm and dry - Extremities Extremities: No edema - Neuro Neuro: Alert and oriented X 3 - Psych Psych: Normal mood, Normal affect Results - Vitals Vitals: Vital Signs - 24 hr 08/03/21 08/03/21 08/03/21 12:33 14:36 18:23 Temperature 36.5 C Heart Rate 100 115 H 73 Respiratory 20 22 Rate Blood Pressure 127/95 H 132/96 H 146/87 H O2 Saturation 98 92 95 Oxygen O2 Source Room air - Labs Labs: Laboratory Tests 08/03/21 08/03/21 08/03/21 15:22 15:22 17:58 WBC 17.3 H 17.7 H RBC 5.93 5.39 Hgb 17.2 15.6 Hct 53.7 H 49.6 MCV 90.6 92.0 MCH 29.0 28.9 MCHC 32.0 31.5 L RDW 14.6 14.7 Plt Count 463 H 408 MPV 10.8 10.9 Neut # (Auto) 14.3 H 15.9 H Lymph # (Auto) 1.5 1.0 L Maury # (Auto) 1.2 H 0.7 Eos # (Auto) 0.0 0.0 Baso # (Auto) 0.1 0.1 Absolute Nucleated RBC 0.00 0.00 Nucleated RBC % 0.0 0.0 Sodium 150 H Potassium 4.7 Chloride 111 Carbon Dioxide 20 L Anion Gap 19.0 H BUN 88 H* Creatinine 2.5 H Estimated GFR (MDRD) 25 L Glucose 118 H Calcium 9.3 Nasal Adenovirus (PCR) Nasal B. parapertussis DNA (PCR) Nasal Coronavir 229E PCR Nasal Coronavir HKU1 PCR Nasal Coronavir NL63 PCR Nasal Coronavir OC43 PCR Nasal Enterovir/Rhinovir PCR Nasal Influenza B PCR Nasal Influenza A PCR Nasal Parainfluen 1 PCR Nasal Parainfluen 2 PCR Nasal Parainfluen 3 PCR Nasal Parainfluen 4 PCR Nasal RSV (PCR) Nasal B.pertussis DNA PCR Nasal C.pneumoniae (PCR) Kulwinder Human Metapneumo PCR Nasal M.pneumoniae (PCR) Nasal SARS-CoV-2 (PCR) 08/03/21 08/03/21 17:58 18:42 WBC RBC Hgb Hct MCV MCH MCHC RDW Plt Count MPV Neut # (Auto) Lymph # (Auto) Maury # (Auto) Eos # (Auto) Baso # (Auto) Absolute Nucleated RBC Nucleated RBC % Sodium 150 H Potassium 4.2 Chloride 113 H Carbon Dioxide 20 L Anion Gap 17.0 H BUN 77 H Creatinine 2.4 H Estimated GFR (MDRD) 27 L Glucose 121 H Calcium 8.6 Nasal Adenovirus (PCR) NOT DETECTED Nasal B. parapertussis DNA (PCR) NOT DETECTED Nasal Coronavir 229E PCR NOT DETECTED Nasal Coronavir HKU1 PCR NOT DETECTED Nasal Coronavir NL63 PCR NOT DETECTED Nasal Coronavir OC43 PCR NOT DETECTED Nasal Enterovir/Rhinovir PCR NOT DETECTED Nasal Influenza B PCR NOT DETECTED Nasal Influenza A PCR NOT DETECTED Nasal Parainfluen 1 PCR NOT DETECTED Nasal Parainfluen 2 PCR NOT DETECTED Nasal Parainfluen 3 PCR NOT DETECTED Nasal Parainfluen 4 PCR NOT DETECTED Nasal RSV (PCR) NOT DETECTED Nasal B.pertussis DNA PCR NOT DETECTED Nasal C.pneumoniae (PCR) NOT DETECTED Kulwinder Human Metapneumo PCR NOT DETECTED Nasal M.pneumoniae (PCR) NOT DETECTED Nasal SARS-CoV-2 (PCR) DETECTED A - Rads (name of study) Chest x-ray Radiology: Final report received, EMP read contemporaneously, See rad report (Right lower lobe infiltrate) PD MEDICAL DECISION MAKING - ED course Complexity details: reviewed results, re-evaluated patient, considered differential, d/w patient ED course: Patient is a 76-year-old male who presents to the emergency department with what appears to be a right lower lobe infiltrate on chest x-ray. This would be consistent with pneumonia. He is also positive for Covid. He is also significantly dehydrated with acute renal insufficiency. Likely from dehydration causing the acute kidney injury. Baseline creatinine is around 1.1- 1.5. He is at 2.5 today he is also uremic at 88. Given IV fluids in the patti rgency department and electrolytes did not improve nor did his kidney function. Therefore we will continue antibiotics and IV fluids overnight and reassess. Not currently hypoxic. He also has hypernatremia. Discussed the case with Dr. Ulloa, hospitalist accepts This document was made in part using voice recognition software. While efforts are made to proofread this document, sound alike and grammatical errors may occur. Departure - Departure Disposition: 66 [facility] DC/Xfer Clinical Impression: Acute kidney injury, Hypernatremia, Uremia, COVID-19 Pneumonia Qualifiers: Pneumonia type: due to unspecified organism Laterality: right Lung location: lower lobe of lung Qualified Code(s): J18.9 - Pneumonia, unspecified organism Condition: Stable Discharge Date/Time: 08/03/21 21:16
[2021-08-03] MEDS ORDERED: SODIUM CHLORIDE 0.9% 1,000 ML IV STA (15:01)
[2021-08-03 15:30] LABS: BASOPHILS # (AUTO) 0.1 10^3/uL (0.0-0.1); BASOPHILS % (AUTO) 0.3 %; EOSINOPHILS % (AUTO) 0.1 %; HCT - HEMATOCRIT 53.7 % (42.0-52.0); HGB - HEMOGLOBIN 17.2 g/dL (14.0-18.0); LYMPHOCYTES # (AUTO) 1.5 10^3/uL (1.5-3.5); LYMPHOCYTES % (AUTO) 8.5 %; MEAN CORPUSCULAR VOLUME 90.6 fL (80.0-94.0); MEAN PLATELET VOLUME 10.8 fL (7.4-11.4); MONOCYTES # (AUTO) 1.2 10^3/uL (0.0-1.0); MONOCYTES % (AUTO) 7.2 %; NEUTROPHILS # (AUTO) 14.3 10^3/uL (1.5-6.6); PLT - PLATELET COUNT 463 10^3/uL (130-450); RED BLOOD COUNT 5.93 10^6/uL (4.70-6.10); RED CELL DISTRIBUTION WIDTH 14.6 % (12.0-15.0); WHITE BLOOD COUNT 17.3 x10^3/uL (4.8-10.8)
[2021-08-03 15:36] LABS: CALCIUM 9.3 mg/dL (8.5-10.3); CREATININE 2.5 mg/dL (0.6-1.2); POTASSIUM 4.7 mmol/L (3.5-5.0)
[2021-08-03] MEDS ORDERED: ELECTROLYTE-A SOLUTION 1,000 ML IV ONE (15:39)
[2021-08-03 18:05] LABS: BASOPHILS # (AUTO) 0.1 10^3/uL (0.0-0.1); BASOPHILS % (AUTO) 0.3 %; EOSINOPHILS % (AUTO) 0.1 %; HCT - HEMATOCRIT 49.6 % (42.0-52.0); HGB - HEMOGLOBIN 15.6 g/dL (14.0-18.0); LYMPHOCYTES % (AUTO) 5.4 %; MEAN CORPUSCULAR HEMOGLOBIN 28.9 pg (27.0-31.0); MEAN CORPUSCULAR HGB CONC 31.5 g/dL (32.0-36.0); MEAN PLATELET VOLUME 10.9 fL (7.4-11.4); MONOCYTES # (AUTO) 0.7 10^3/uL (0.0-1.0); MONOCYTES % (AUTO) 3.7 %; NEUTROPHILS # (AUTO) 15.9 10^3/uL (1.5-6.6); NEUTROPHILS % (AUTO) 89.5 %; PLT - PLATELET COUNT 408 10^3/uL (130-450); RED BLOOD COUNT 5.39 10^6/uL (4.70-6.10); RED CELL DISTRIBUTION WIDTH 14.7 % (12.0-15.0); WHITE BLOOD COUNT 17.7 x10^3/uL (4.8-10.8)
[2021-08-03 18:12] LABS: CALCIUM 8.6 mg/dL (8.5-10.3); CREATININE 2.4 mg/dL (0.6-1.2); POTASSIUM 4.2 mmol/L (3.5-5.0)
[2021-08-03] MEDS ORDERED: cefTRIAXone 1 GM VIAL IVP STA (19:49)
[2021-08-03 20:04] LABS: CORONAVIRUS 229E-RESP PCR NOT DETECTED; CORONAVIRUS HKU1-RESP PCR NOT DETECTED; CORONAVIRUS NL63-RESP PCR NOT DETECTED; CORONAVIRUS OC43-RESP PCR NOT DETECTED
[2021-08-03 20:05] LABS: HUMAN METAPNEUMOVIRUS NOT DETECTED; RHINOVIRUS/ENTEROVIRUS NOT DETECTED; SARS-CoV-2 -RESP PCR PANEL DETECTED
[2021-08-03 20:06] LABS: B. PARAPERTUSSIS- RESP PCR PAN NOT DETECTED; B. PERTUSSIS- RESP PCR PANEL NOT DETECTED; C. PNEUMONIAE- RESP PCR PANEL NOT DETECTED; INFLUENZA A- RESP PCR PANEL NOT DETECTED; INFLUENZA B - RESP PCR PANEL NOT DETECTED; M. PNEUMONIAE- RESP PCR PANEL NOT DETECTED; PARAINFLUENZA VIRUS 1 NOT DETECTED; PARAINFLUENZA VIRUS 2 NOT DETECTED; PARAINFLUENZA VIRUS 3 NOT DETECTED; PARAINFLUENZA VIRUS 4 NOT DETECTED; RSV- RESP PCR PANEL NOT DETECTED
[2021-08-03] MEDS ORDERED: ONDANSETRON ODT 4 MG TABLET TL PRN (20:06)
[2021-08-03] MEDS ORDERED: SODIUM CHLORIDE FLUSH 0.9% 10 ML SYRINGE IVP PRN (20:06)
[2021-08-03] MEDS ORDERED: ACETAMINOPHEN 325 MG TABLET PO PRN (20:06)
[2021-08-03] MEDS ORDERED: ONDANSETRON 4 MG/2 ML VIAL IVP PRN (20:06)
[2021-08-03] MEDS ORDERED: ALBUTEROL NEB 2.5 MG/3 ML INH PRN (20:08)
--- NOTE | 2021-08-03 20:11 | HISTORY & PHYSICAL EXAMINATION ---
Chief Complaint - Chief Complaint Chief Complaint: Shortness of breath History of Present Illness - Admitted From Admitted From:: Home - History Obtained From Records Reviewed: Yes History obtained from: Patient, Son, ER Physician, EMR Exam Limitations: Patient is a poor historian - History of Present Illness HPI Comment/Other: This is a 76-year-old male with a past medical history significant for multiple strokes, small bowel obstruction status post right hemicolectomy who presents today due to worsening shortness of breath. Most of the history is obtained from the patient's son as patient is confused and an unreliable historian. The patient tells me that his symptoms are time for the past week and when he arrived today to see him, he noticed the patient was more confused and appeared quite short of breath. The patient states he has been short of breath for the past few days and has had an occasional cough. He reports no fevers or chills. He is not vaccinated against Covid. He denies any chest pain. He states he has had a poor appetite and is only been eating applesauce and strawberries. He states he feels quite similar to an episode of pneumonia he had about 1 year ago. The patient's son tells me that his father has a history of multiple strokes and was supposed to undergo what appears to be a carotid endarterectomy but the patient declined this. He is post to be on either aspirin or warfarin but the patient declined all therapies. He states his father takes no medications whatsoever. He states he has had some personality changes and occasional confusion since his strokes but he is definitely more confused today compared to when he saw him about 1 week ago. The patient normally lives independently and his son checks on him. The patient admits to drinking 1 beer a day which his son confirms. The patient continues to smoke about a pack a day and has been doing so for nearly 50 years. In our emergency department, he was noted to the right lower lobe infiltrate as well as acute kidney injury and hyponatremia. Given the above findings, medicine was consulted for admission. I discussed goals of care the patient he would like to be a DNR and this was confirmed by his son. History - Past Medical History Cardiovascular: reports: None Respiratory: reports: None Neuro: reports: CVA Endocrine/Autoimmune: reports: None GI: reports: Other (Bowel obstruction.) : reports: None HEENT: reports: None Psych: reports: None Musculoskeletal: reports: None Derm: reports: None MRSA Hx?: No - Past Surgical History General: reports: Bowel surgery (Right hemicolectomy with ileocecal anastamosis.) - Family & Social History Family History Comment/Other: He reports no significant family history to his knowledge. Living arrangement: At home Social History Notes: The patient lives at home alone but his son, Avni, checks on him on a regular basis. He smokes a pack a day and has been doing so for nearly 50 years. He drinks one beer every night. - POLST Patient has POLST: No POLST Status: Full Code Meds/Allgy - Home Medications Home Medications: Ambulatory Orders Medication Instructions Recorded Confirmed oxyCODONE [Roxicodone] 5 mg PO Q4HR PRN #15 tablet 10/12/19 - Allergies Allergies/Adverse Reactions: Allergies Allergy/AdvReac Type Severity Reaction Status Date / Time No Known Drug Allergies Allergy Verified 08/03/21 12:33 Review of Systems - Constitutional Constitutional: reports: Weakness, Poor appetite - Ears, Nose & Throat Ears, Nose & Throat: denies: Nasal discharge, Nasal congestion, Sore throat - Cardiovascular Cariovascular: denies: Chest pain, Edema - Respiratory Respiratory: reports: Cough, Sputum production, SOB at rest, SOB with exertion - Gastrointestinal Gastrointestinal: denies: Abdominal pain, Diarrhea, Nausea, Vomiting - Genitourinary Genitourinary: denies: Dysuria, Frequency, Urgency, Hematuria - Neurological Neurological: reports: Memory problems. denies: Focal weakness - All Other Systems All Other Systems: reports: Other (Limited due to altered mental status.) Prior Level of Functionality: He is normally independent with his ADLs. Exam - Vital Signs Reviewed Vital Signs: Yes Vital Signs: Vital Signs x48h Temp Pulse Resp BP Pulse Ox 08/03/21 18:23 73 146/87 H 95 08/03/21 14:36 115 H 22 132/96 H 92 08/03/21 12:33 36.5 C 100 20 127/95 H 98 - Physical Exam General Appearance: positive: No acute distress, Alert Eyes Bilateral: positive: Normal inspection, Conjunctivae nml ENT: positive: Dry mucous membranes. negative: No signs of dehydration Neck: positive: Nml inspection Respiratory: positive: No respiratory distress. negative: Wheezes, Rales Cardiovascular: positive: Regular rate & rhythm. negative: Tachycardia, Systolic murmur Abdomen: positive: Non-tender, No distention, Other (Prior surgical incision noted.). negative: Tenderness Skin: positive: No rash, Warm, Dry Extremities: positive: No pedal edema Neurologic/Psychiatric: positive: Disoriented to time, Other (No focal deficits.). negative: Disoriented to person, Disoriented to place Conclusion/Plan - Problem List (1) Community acquired pneumonia Conclusion/Plan: This chest x-ray reveals a right lower lobe infiltrate and he has elevated white blood cell count. No obvious evidence of sepsis as he is afebrile and his heart rate is now within normal limits. We will treat him with ceftriaxone and azithromycin IV. We will check a lactic acid and blood cultures. Monitor respiratory status. (2) Altered mental status Conclusion/Plan: Suspect is multifactorial and likely secondary to infection, the elevated BUN as well as the hypernatremia. We will continue him on antibiotics mentioned above and hydrate him with IV fluids. He has no focal deficits suggest a stroke so we will hold off on imaging. We will check a TSH. (3) Acute kidney injury Conclusion/Plan: This is secondary to volume depletion due to decreased oral intake. His creatinine is elevated at greater than 2 and his baseline is around 1.1. We will hydrate him with half-normal saline and D5 water. Avoid nephrotoxins. Monitor renal function and urine output. (4) Hypernatremia Conclusion/Plan: This is secondary to decreased free water intake. His sodium is increased at 150. We will hydrate him with D5 water and half-normal saline at 125 mL an hour. We will recheck a BMP in the morning. Encourage free water intake. (5) COVID-19 Conclusion/Plan: He is found to be Covid positive which is likely contributing to his dyspnea in addition to the suspected bacterial pneumonia. He is unvaccinated. His evidence reveals a right lower lobe infiltrate otherwise unremarkable. We will hold off on Decadron given lack of hypoxia. Contact precautions. (6) History of stroke Conclusion/Plan: He has a known history of stroke but has declined therapy in the past. Once he is less altered, we will discuss this further with him regarding risks and benefits. - Lab Results Lab results reviewed: Yes Fish Bones: 08/03/21 17:58 08/03/21 17:58 - Diagnostic Imaging Results Diagnostic Imaging Results: positive: Final report reviewed Core Measures - Anticipated LOS I expect patient to be DC'd or transferred within 96 hours.: Yes - Issues Hospital Issues and Management Plan: 76-year-old male presents with dyspnea found to have likely bacterial pneumonia as well as COVID-19. He also has acute kidney injury and hyponatremia. We will admit for IV antibiotics and IV hydration. - DVT/VTE - Prophylaxis VTE/DVT Device ordered at admit?: Yes VTE/DVT Prophylaxis med ordered at admit?: Yes
[2021-08-03] MEDS: DEXTROSE 5%-0.45% NACL 1,000 ML IV SCH (21:44)
[2021-08-03] MEDS: HEPARIN 5,000 UNIT/ML VIAL SUBQ SCH (21:45)
[2021-08-04] MEDS: SODIUM CHLORIDE FLUSH 0.9% 10 ML SYRINGE IVP SCH ×3 (00:27→16:08)
[2021-08-04] MEDS: DEXTROSE 5%-0.45% NACL 1,000 ML IV SCH ×3 (06:01→20:44)
[2021-08-04 06:07] LABS: BASOPHILS % (AUTO) 0.2 %; HCT - HEMATOCRIT 44.2 % (42.0-52.0); HGB - HEMOGLOBIN 14.4 g/dL (14.0-18.0); LYMPHOCYTES # (AUTO) 0.8 10^3/uL (1.5-3.5); LYMPHOCYTES % (AUTO) 5.8 %; MEAN CORPUSCULAR HEMOGLOBIN 29.3 pg (27.0-31.0); MEAN CORPUSCULAR HGB CONC 32.6 g/dL (32.0-36.0); MEAN CORPUSCULAR VOLUME 89.8 fL (80.0-94.0); MONOCYTES # (AUTO) 0.8 10^3/uL (0.0-1.0); MONOCYTES % (AUTO) 5.5 %; NEUTROPHILS # (AUTO) 12.4 10^3/uL (1.5-6.6); NEUTROPHILS % (AUTO) 87.6 %; PLT - PLATELET COUNT 388 10^3/uL (130-450); RED BLOOD COUNT 4.92 10^6/uL (4.70-6.10); RED CELL DISTRIBUTION WIDTH 14.6 % (12.0-15.0); WHITE BLOOD COUNT 14.1 x10^3/uL (4.8-10.8)
[2021-08-04 06:10] LABS: CALCIUM 8.4 mg/dL (8.5-10.3); CREATININE 1.8 mg/dL (0.6-1.2); POTASSIUM 3.5 mmol/L (3.5-5.0)
[2021-08-04] MEDS: HEPARIN 5,000 UNIT/ML VIAL SUBQ SCH ×2 (08:59→21:29)
[2021-08-04] MEDS: AZITHROMYCIN INJ 500 MG in SODIUM CHLORIDE 0.9% 250 ML IV SCH (09:00)
--- NOTE | 2021-08-04 10:47 | PHARMACY PROGRESS NOTE ---
- Best Possible Medication History Admit Date and Time: 08/03/212005 Processed by: Pharmacy Medication History completed: Yes Patient Interview: Pt unable to participate As the person ultimately responsible for medication therapy, providers are able to order a medication from an existing home medication list in [facility] via the "Reconcile Routine" prior to Confirmation of that medication by passport support manager. Such practice is discouraged except when the physician, in their clinical judgment, deems that a medical need exists for a medication without regard to previous use.
[2021-08-04] MEDS: PRENATAL VITAMIN TABLET PO SCH (10:59)
--- NOTE | 2021-08-04 11:30 | PROVIDER PROGRESS NOTE ---
Assessment/Plan - Problem List (1) Community acquired pneumonia Assessment/Plan: 08/04 improved, WBC is reduced to 14. Patient had a 94% oxygen saturation on room male on the rest. We continue with ceftriaxone and azithromycin IV. We blood cultures is pending. Monitor respiratory status. (2) Altered mental status Conclusion/Plan: 08/04 resolved. pt is alert and oriented on today. (3) Acute kidney injury Conclusion/Plan: 08/04 improved, creatinine is 1.8 from 2.5 at admission. continue IVF with d5 1/2 NS, continue lab monitor, Avoid nephrotoxins. Monitor renal function and urine output. (4) Hypernatremia Conclusion/Plan: 08/04 resolved. Na 145, continue gentle IVF, and lab monitor (5) COVID-19 Conclusion/Plan: 08/04 stable, pt had a 94% oxygen saturation on room male on the rest. He is found to be Covid positive which is likely contributing to his dyspnea in addition to the suspected bacterial pneumonia. He is unvaccinated. His evidence reveals a right lower lobe infiltrate otherwise unremarkable. We will hold off on Decadron given lack of hypoxia. Contact precautions. (6) History of stroke Conclusion/Plan: 08/04 Discussed with the patient to put medications for prevention of stroke, and benefit and risk. pt clearly declined to have medications for prevention of stroke. He has a known history of stroke but has declined therapy in the past. - Current Meds Current Meds: Current Medications Generic Name Dose Route Start Last Admin Trade Name Freq PRN Reason Stop Dose Admin Heparin Sodium (Porcine) 5,000 unit 08/03/21 21:00 08/04/21 08:59 Heparin 5,000 Unit/Ml Vial SUBQ 5,000 unit BID PABLO Administration Azithromycin 500 mg/ Sodium 250 mls @ 250 mls/hr 08/04/21 09:00 08/04/21 10:06 Chloride IV 08/06/21 09:59 Infused DAILY PABLO Infusion Dextrose/Sodium Chloride 1,000 mls @ 100 mls/hr 08/04/21 10:36 08/04/21 10:59 D5.45ns IV 08/05/21 06:35 100 mls/hr .Q10H PABLO Administration Multivit/Folic Acid/Iron 1 tab 08/04/21 11:00 08/04/21 10:59 Vitamin Tablet PO 1 tab DAILYWM PABLO Administration Sodium Chloride 10 ml 08/04/21 01:00 08/04/21 09:38 Sodium Chloride Flush 0.9% 10 Ml Syringe IVP Not Given 0100,0900,1700 [facility] - Lab Result Fish Bone Diagrams: 08/04/21 05:33 08/04/21 05:33 - Additional Planning My Orders: My Active Orders 08/04/21 10:36 Dextrose 5%-0.45% NaCl [D5.45ns] 1,000 ml IV 100 mls/hr 08/04/21 11:00 Vitamin [Trinatal Rx 1] 1 tab PO DAILYWM 08/05/21 09:00 Cholecalciferol [Vitamin D3] 50 mcg PO DAILY Lactobacillus Rhamnosus GG [Culturelle] 1 cap PO DAILY Subjective - Subjective Patient Reports: Resting Comfortably Objective Vital Signs: Vital Signs - 24 hr 08/03/21 08/03/21 08/03/21 12:33 14:36 18:23 Temperature 36.5 C Heart Rate 100 115 H 73 Heart Rate [ Brachial] Heart Rate [ Radial] Respiratory 20 22 Rate Blood Pressure 127/95 H 132/96 H 146/87 H Blood Pressure [Left Brachial artery] O2 Saturation 98 92 95 08/03/21 08/04/21 08/04/21 21:00 00:25 04:25 Temperature 36.4 C L 36.4 C L 34.5 C L Heart Rate Heart Rate [ Brachial] Heart Rate [ 89 71 55 L Radial] Respiratory 18 18 16 Rate Blood Pressure Blood Pressure 123/82 H 119/73 129/77 [Left Brachial artery] O2 Saturation 94 96 95 08/04/21 08:05 Temperature 36.4 C L Heart Rate Heart Rate [ 61 Brachial] Heart Rate [ Radial] Respiratory 16 Rate Blood Pressure Blood Pressure 116/73 [Left Brachial artery] O2 Saturation 94 Oxygen O2 Source Room air I&O (Last 24 Hrs): Intake and Output Totals x24h 08/02/21 08/03/21 08/04/21 23:59 23:59 23:59 Intake Total 2140 2210 Balance 2140 2210 General: Alert, Oriented x3, No acute distress HEENT: Atraumatic Neck: Supple Lymphatic: no adenopathy Neuro: Alert, Non Focal, Oriented Times 3 Cardiovascular: Regular rate, Normal S1, Normal S2 Respiratory: Chest non-tender, Other (shortness of breath at exertion) Abdomen: Normal bowel sounds, Soft Extremities: Normal pulses - Results Results: Laboratory Results WBC 14.1 x10^3/uL (4.8-10.8) H 08/04/21 05:33 RBC 4.92 10^6/uL (4.70-6.10) 08/04/21 05:33 Hgb 14.4 g/dL (14.0-18.0) 08/04/21 05:33 Hct 44.2 % (42.0-52.0) 08/04/21 05:33 MCV 89.8 fL (80.0-94.0) 08/04/21 05:33 MCH 29.3 pg (27.0-31.0) 08/04/21 05:33 MCHC 32.6 g/dL (32.0-36.0) 08/04/21 05:33 RDW 14.6 % (12.0-15.0) 08/04/21 05:33 Plt Count 388 10^3/uL (130-450) 08/04/21 05:33 MPV 11.0 fL (7.4-11.4) 08/04/21 05:33 Neut # (Auto) 12.4 10^3/uL (1.5-6.6) H 08/04/21 05:33 Lymph # (Auto) 0.8 10^3/uL (1.5-3.5) L 08/04/21 05:33 [place] # (Auto) 0.8 10^3/uL (0.0-1.0) 08/04/21 05:33 Eos # (Auto) 0.0 10^3/uL (0.0-0.7) 08/04/21 05:33 Baso # (Auto) 0.0 10^3/uL (0.0-0.1) 08/04/21 05:33 Absolute Nucleated RBC 0.00 x10^3/uL 08/04/21 05:33 Nucleated RBC % 0.0 /100WBC 08/04/21 05:33 Sodium 145 mmol/L (135-145) 08/04/21 05:33 Potassium 3.5 mmol/L (3.5-5.0) 08/04/21 05:33 Chloride 114 mmol/L (101-111) H 08/04/21 05:33 Carbon Dioxide 20 mmol/L (21-32) L 08/04/21 05:33 Anion Gap 11.0 (6-13) 08/04/21 05:33 BUN 65 mg/dL (6-20) H 08/04/21 05:33 Creatinine 1.8 mg/dL (0.6-1.2) H 08/04/21 05:33 Estimated GFR (MDRD) 37 (>89) L 08/04/21 05:33 Glucose 154 mg/dL (70-100) H 08/04/21 05:33 Lactic Acid 1.2 mmol/L (0.5-2.2) 08/03/21 20:21 Calcium 8.4 mg/dL (8.5-10.3) L 08/04/21 05:33 TSH 0.63 uIU/mL (0.34-5.60) 08/04/21 05:33 Nasal Adenovirus (PCR) NOT DETECTED 08/03/21 18:42 Nasal B. parapertussis DNA (PCR) NOT DETECTED 08/03/21 18:42 Nasal Coronavir 229E PCR NOT DETECTED 08/03/21 18:42 Nasal Coronavir HKU1 PCR NOT DETECTED 08/03/21 18:42 Nasal Coronavir NL63 PCR NOT DETECTED 08/03/21 18:42 Nasal Coronavir OC43 PCR NOT DETECTED 08/03/21 18:42 Nasal Enterovir/Rhinovir PCR NOT DETECTED 08/03/21 18:42 Nasal Influenza B PCR NOT DETECTED 08/03/21 18:42 Nasal Influenza A PCR NOT DETECTED 08/03/21 18:42 Nasal Parainfluen 1 PCR NOT DETECTED 08/03/21 18:42 Nasal Parainfluen 2 PCR NOT DETECTED 08/03/21 18:42 Nasal Parainfluen 3 PCR NOT DETECTED 08/03/21 18:42 Nasal Parainfluen 4 PCR NOT DETECTED 08/03/21 18:42 Nasal RSV (PCR) NOT DETECTED 08/03/21 18:42 Nasal B.pertussis DNA PCR NOT DETECTED 08/03/21 18:42 Nasal C.pneumoniae (PCR) NOT DETECTED 08/03/21 18:42 [place] Human Metapneumo PCR NOT DETECTED 08/03/21 18:42 Nasal M.pneumoniae (PCR) NOT DETECTED 08/03/21 18:42 Nasal SARS-CoV-2 (PCR) DETECTED A 08/03/21 18:42 - Procedures Procedures: Procedures RESECTION OF RIGHT LARGE INTESTINE, OPEN APPROACH (10/03/19) ABX Reporting Has patient been on IV antibiotics over the past 48 hours?: Yes Current Medications - Current Medications Current Medications: Active Medications Acetaminophen (Acetaminophen 325 Mg Tablet) 650 mg PO Q4HR PRN PRN Reason: Pain 1 to 4 Albuterol (Albuterol Neb 2.5 Mg/3 Ml) 2.5 mg INH Q4HR PRN PRN Reason: Wheezing Cholecalciferol (Cholecalciferol 25 Mcg Tablet) 50 mcg PO DAILY [facility] Heparin Sodium (Porcine) (Heparin 5,000 Unit/Ml Vial) 5,000 unit SUBQ BID [facility] Last Admin: 08/04/21 08:59 Dose: 5,000 unit Azithromycin 500 mg/ Sodium (Chloride) 250 mls @ 250 mls/hr IV DAILY [facility] Stop: 08/06/21 09:59 Last Infusion: 08/04/21 10:06 Dose: Infused Ceftriaxone Sodium 1 gm/ (Sodium Chloride) 100 mls @ 200 mls/hr IV 2000 [facility] Stop: 08/07/21 20:29 Dextrose/Sodium Chloride (D5.45ns) 1,000 mls @ 100 mls/hr IV .Q10H [facility] Stop: 08/05/21 06:35 Last Admin: 08/04/21 10:59 Dose: 100 mls/hr Lactobacillus Rhamnosus (Lactobacillus Rhamnosus Gg Capsule) 1 cap PO DAILY [facility] Ondansetron HCl (Ondansetron Odt 4 Mg Tablet) 4 mg TL Q6HR PRN PRN Reason: Nausea / Vomiting Ondansetron HCl (Ondansetron 4 Mg/2 Ml Vial) 4 mg IVP Q6HR PRN PRN Reason: Nausea / Vomiting Multivit/Folic Acid/Iron ( Vitamin Tablet) 1 tab PO DAILYWM [facility] Last Admin: 08/04/21 10:59 Dose: 1 tab Sodium Chloride (Sodium Chloride Flush 0.9% 10 Ml Syringe) 10 ml IVP PRN PRN PRN Reason: NEEDED PER PROVIDER ORDERS Sodium Chloride (Sodium Chloride Flush 0.9% 10 Ml Syringe) 10 ml IVP 0100,0900,1700 [facility] Last Admin: 08/04/21 09:38 Dose: Not Given No Known Home Medications 08/04/21
[2021-08-04] MEDS: SACCHAROMYCES BOULARDII 250 MG CAPSULE PO SCH (18:14)
[2021-08-04] MEDS: cefTRIAXone 1 GM in SODIUM CHLORIDE 0.9% MINIBAG 100 ML IV SCH (20:44)
[2021-08-05] MEDS: SODIUM CHLORIDE FLUSH 0.9% 10 ML SYRINGE IVP SCH ×4 (03:31→23:45)
[2021-08-05 05:41] LABS: BASOPHILS % (AUTO) 0.3 %; EOSINOPHILS # (AUTO) 0.1 10^3/uL (0.0-0.7); EOSINOPHILS % (AUTO) 1.4 %; HCT - HEMATOCRIT 40.3 % (42.0-52.0); HGB - HEMOGLOBIN 12.9 g/dL (14.0-18.0); LYMPHOCYTES # (AUTO) 1.5 10^3/uL (1.5-3.5); LYMPHOCYTES % (AUTO) 17.2 %; MEAN CORPUSCULAR HEMOGLOBIN 29.2 pg (27.0-31.0); MEAN CORPUSCULAR VOLUME 91.2 fL (80.0-94.0); MEAN PLATELET VOLUME 10.6 fL (7.4-11.4); MONOCYTES # (AUTO) 0.5 10^3/uL (0.0-1.0); MONOCYTES % (AUTO) 5.5 %; NEUTROPHILS # (AUTO) 6.4 10^3/uL (1.5-6.6); NEUTROPHILS % (AUTO) 74.1 %; PLT - PLATELET COUNT 296 10^3/uL (130-450); RED BLOOD COUNT 4.42 10^6/uL (4.70-6.10); RED CELL DISTRIBUTION WIDTH 14.5 % (12.0-15.0); WHITE BLOOD COUNT 8.7 x10^3/uL (4.8-10.8)
[2021-08-05 05:49] LABS: CREATININE 1.5 mg/dL (0.6-1.2); POTASSIUM 3.6 mmol/L (3.5-5.0)
[2021-08-05] MEDS ORDERED: LACTOBACILLUS RHAMNOSUS GG CAPSULE PO SCH (09:00)
--- NOTE | 2021-08-05 09:12 | PROVIDER PROGRESS NOTE ---
Assessment/Plan - Problem List (1) Community acquired pneumonia Assessment/Plan: 08/05 improved, WBC became normal arrange, pt has no fever, blood culture is negative, and pt's O2 sat is stable, continue IV antibiotics today, then switch to PO antibiotics, plan D/C pt on tomorrow. 08/04 improved, WBC is reduced to 14. Patient had a 94% oxygen saturation on room male on the rest. We continue with ceftriaxone and azithromycin IV. We blood cultures is pending. Monitor respiratory status. (2) Altered mental status Conclusion/Plan: 08/04 resolved. pt is alert and oriented on today. (3) Acute kidney injury Conclusion/Plan: 08/04 improved, creatinine 1.5, close to his baseline, continue IVF and lab monitor, avoid nephrological toxic agents 2/ improved, creatinine is 1.8 from 2.5 at admission. continue IVF with d5 1/2 NS, continue lab monitor, Avoid nephrotoxins. Monitor renal function and urine output. (4) Hypernatremia Conclusion/Plan: 08/04 resolved. Na 145, continue gentle IVF, and lab monitor (5) COVID-19 Conclusion/Plan: 08/04 stable, pt had a 94% oxygen saturation on room male on the rest. He is found to be Covid positive which is likely contributing to his dyspnea in addition to the suspected bacterial pneumonia. He is unvaccinated. His evidence reveals a right lower lobe infiltrate otherwise unremarkable. We will hold off on Decadron given lack of hypoxia. Contact precautions. (6) History of stroke Conclusion/Plan: 08/04 Discussed with the patient to put medications for prevention of stroke, and benefit and risk. pt clearly declined to have medications for prevention of stroke. He has a known history of stroke but has declined therapy in the past. - Current Meds Current Meds: Current Medications Generic Name Dose Route Start Last Admin Trade Name Freq PRN Reason Stop Dose Admin Heparin Sodium (Porcine) 5,000 unit 08/03/21 21:00 08/04/21 21:29 Heparin 5,000 Unit/Ml Vial SUBQ Not Given BID PABLO Azithromycin 500 mg/ Sodium 250 mls @ 250 mls/hr 08/04/21 09:00 08/04/21 10:06 Chloride IV 08/06/21 09:59 Infused DAILY [facility] Infusion Ceftriaxone Sodium 1 gm/ 100 mls @ 200 mls/hr 08/04/21 20:00 08/04/21 21:29 Sodium Chloride IV 08/07/21 20:29 Infused 1999 [facility] Infusion Multivit/Folic Acid/Iron 1 tab 08/04/21 11:00 08/04/21 10:59 Vitamin Tablet PO 1 tab DAILYWM PABLO Administration Saccharomyces Boulardii 250 mg 08/04/21 17:57 08/04/21 18:14 Saccharomyces Boulardii 250 Mg Capsule PO 250 mg BIDWM PABLO Administration Sodium Chloride 10 ml 08/04/21 01:00 08/05/21 03:31 Sodium Chloride Flush 0.9% 10 Ml Syringe IVP Not Given 0100,0900,1700 [facility] - Lab Result Fish Bone Diagrams: 08/05/21 05:35 08/05/21 05:35 - Additional Planning My Orders: My Active Orders 08/04/21 11:00 Vitamin [Trinatal Rx 1] 1 tab PO DAILYWM 08/04/21 17:57 Saccharomyces Boulardii [Florastor] 250 mg PO BIDWM 08/05/21 08:00 D5.45ns W/20 Meq KCl 1,000 ml IV 83.333 mls/hr Pantoprazole [Protonix] 40 mg PO QDAC 08/05/21 09:00 Cholecalciferol [Vitamin D3] 50 mcg PO DAILY 08/05/21 09:09 Out of bed 3+ hours today [RC] TID Subjective - Subjective Patient Reports: Feeling Better, Resting Comfortably Objective Vital Signs: Vital Signs - 24 hr 08/04/21 08/04/21 08/04/21 12:05 15:35 21:00 Temperature 36.4 C L 36.6 C Heart Rate Heart Rate [ 64 56 L 61 Brachial] Respiratory 18 16 17 Rate Blood Pressure 126/74 110/66 [Left Brachial artery] Blood Pressure 112/58 L [Right Brachial artery] O2 Saturation 92 96 96 08/05/21 08/05/21 08/05/21 00:24 05:20 07:53 Temperature 36.5 C 36.5 C 36.5 C Heart Rate 54 L Heart Rate [ 55 L 54 L Brachial] Respiratory 20 18 18 Rate Blood Pressure [Left Brachial artery] Blood Pressure 100/50 L 95/52 L [Right Brachial artery] O2 Saturation 96 97 97 08/05/21 08:12 Temperature 36.8 C Heart Rate Heart Rate [ 55 L Brachial] Respiratory 16 Rate Blood Pressure [Left Brachial artery] Blood Pressure 113/63 [Right Brachial artery] O2 Saturation 94 Oxygen O2 Source Room air I&O (Last 24 Hrs): Intake and Output Totals x24h 08/03/21 08/04/21 08/05/21 23:59 23:59 23:59 Intake Total 2140 5360 1150 Balance 2140 5360 1150 General: Alert, Oriented x3, Cooperative, No acute distress HEENT: Atraumatic Neck: Supple Lymphatic: no adenopathy Neuro: Alert, Non Focal, Oriented Times 3 Cardiovascular: Regular rate, Normal S1, Normal S2 Respiratory: Chest non-tender, No respiratory distress Abdomen: Normal bowel sounds, Soft Extremities: Normal pulses - Results Results: Laboratory Results WBC 8.7 x10^3/uL (4.8-10.8) 08/05/21 05:35 RBC 4.42 10^6/uL (4.70-6.10) L 08/05/21 05:35 Hgb 12.9 g/dL (14.0-18.0) L 08/05/21 05:35 Hct 40.3 % (42.0-52.0) L 08/05/21 05:35 MCV 91.2 fL (80.0-94.0) 08/05/21 05:35 MCH 29.2 pg (27.0-31.0) 08/05/21 05:35 MCHC 32.0 g/dL (32.0-36.0) 08/05/21 05:35 RDW 14.5 % (12.0-15.0) 08/05/21 05:35 Plt Count 296 10^3/uL (130-450) 08/05/21 05:35 MPV 10.6 fL (7.4-11.4) 08/05/21 05:35 Neut # (Auto) 6.4 10^3/uL (1.5-6.6) 08/05/21 05:35 Lymph # (Auto) 1.5 10^3/uL (1.5-3.5) 08/05/21 05:35 [place] # (Auto) 0.5 10^3/uL (0.0-1.0) 08/05/21 05:35 Eos # (Auto) 0.1 10^3/uL (0.0-0.7) 08/05/21 05:35 Baso # (Auto) 0.0 10^3/uL (0.0-0.1) 08/05/21 05:35 Absolute Nucleated RBC 0.00 x10^3/uL 08/05/21 05:35 Nucleated RBC % 0.0 /100WBC 08/05/21 05:35 Sodium 142 mmol/L (135-145) 08/05/21 05:35 Potassium 3.6 mmol/L (3.5-5.0) 08/05/21 05:35 Chloride 114 mmol/L (101-111) H 08/05/21 05:35 Carbon Dioxide 19 mmol/L (21-32) L 08/05/21 05:35 Anion Gap 9.0 (6-13) 08/05/21 05:35 BUN 37 mg/dL (6-20) H 08/05/21 05:35 Creatinine 1.5 mg/dL (0.6-1.2) H 08/05/21 05:35 Estimated GFR (MDRD) 46 (>89) L 08/05/21 05:35 Glucose 104 mg/dL (70-100) H 08/05/21 05:35 Lactic Acid 1.2 mmol/L (0.5-2.2) 08/03/21 20:21 Calcium 8.0 mg/dL (8.5-10.3) L 08/05/21 05:35 TSH 0.63 uIU/mL (0.34-5.60) 08/04/21 05:33 Nasal Adenovirus (PCR) NOT DETECTED 08/03/21 18:42 Nasal B. parapertussis DNA (PCR) NOT DETECTED 08/03/21 18:42 Nasal Coronavir 229E PCR NOT DETECTED 08/03/21 18:42 Nasal Coronavir HKU1 PCR NOT DETECTED 08/03/21 18:42 Nasal Coronavir NL63 PCR NOT DETECTED 08/03/21 18:42 Nasal Coronavir OC43 PCR NOT DETECTED 08/03/21 18:42 Nasal Enterovir/Rhinovir PCR NOT DETECTED 08/03/21 18:42 Nasal Influenza B PCR NOT DETECTED 08/03/21 18:42 Nasal Influenza A PCR NOT DETECTED 08/03/21 18:42 Nasal Parainfluen 1 PCR NOT DETECTED 08/03/21 18:42 Nasal Parainfluen 2 PCR NOT DETECTED 08/03/21 18:42 Nasal Parainfluen 3 PCR NOT DETECTED 08/03/21 18:42 Nasal Parainfluen 4 PCR NOT DETECTED 08/03/21 18:42 Nasal RSV (PCR) NOT DETECTED 08/03/21 18:42 Nasal B.pertussis DNA PCR NOT DETECTED 08/03/21 18:42 Nasal C.pneumoniae (PCR) NOT DETECTED 08/03/21 18:42 [place] Human Metapneumo PCR NOT DETECTED 08/03/21 18:42 Nasal M.pneumoniae (PCR) NOT DETECTED 08/03/21 18:42 Nasal SARS-CoV-2 (PCR) DETECTED A 08/03/21 18:42 Coronavirus (PCR) POSITIVE 08/03/21 14:45 - Procedures Procedures: Procedures RESECTION OF RIGHT LARGE INTESTINE, OPEN APPROACH (10/03/19) ABX Reporting Has patient been on IV antibiotics over the past 48 hours?: Yes Current Medications - Current Medications Current Medications: Active Medications Acetaminophen (Acetaminophen 325 Mg Tablet) 650 mg PO Q4HR PRN PRN Reason: Pain 1 to 4 Albuterol (Albuterol Neb 2.5 Mg/3 Ml) 2.5 mg INH Q4HR PRN PRN Reason: Wheezing Cholecalciferol (Cholecalciferol 25 Mcg Tablet) 50 mcg PO DAILY [facility] Heparin Sodium (Porcine) (Heparin 5,000 Unit/Ml Vial) 5,000 unit SUBQ BID [facility] Last Admin: 08/04/21 21:29 Dose: Not Given Azithromycin 500 mg/ Sodium (Chloride) 250 mls @ 250 mls/hr IV DAILY [facility] Stop: 08/06/21 09:59 Last Infusion: 08/04/21 10:06 Dose: Infused Ceftriaxone Sodium 1 gm/ (Sodium Chloride) 100 mls @ 200 mls/hr IV 2000 [facility] Stop: 08/07/21 20:29 Last Infusion: 08/04/21 21:29 Dose: Infused Potassium Chloride/Dextrose/Sod Cl (D5.45ns W/20 Meq Kcl) 1,000 mls @ 83.333 mls/hr IV .Q12H [facility] Stop: 08/06/21 07:59 Ondansetron HCl (Ondansetron Odt 4 Mg Tablet) 4 mg TL Q6HR PRN PRN Reason: Nausea / Vomiting Ondansetron HCl (Ondansetron 4 Mg/2 Ml Vial) 4 mg IVP Q6HR PRN PRN Reason: Nausea / Vomiting Pantoprazole Sodium (Pantoprazole 40 Mg Tablet) 40 mg PO QDAC [facility] Multivit/Folic Acid/Iron ( Vitamin Tablet) 1 tab PO DAILYWM [facility] Last Admin: 08/04/21 10:59 Dose: 1 tab Saccharomyces Boulardii (Saccharomyces Boulardii 250 Mg Capsule) 250 mg PO BIDWM [facility] Last Admin: 08/04/21 18:14 Dose: 250 mg Sodium Chloride (Sodium Chloride Flush 0.9% 10 Ml Syringe) 10 ml IVP PRN PRN PRN Reason: NEEDED PER PROVIDER ORDERS Sodium Chloride (Sodium Chloride Flush 0.9% 10 Ml Syringe) 10 ml IVP 0100,0900,1700 [facility] Last Admin: 08/05/21 03:31 Dose: Not Given No Known Home Medications 08/04/21
[2021-08-05] MEDS: PRENATAL VITAMIN TABLET PO SCH (09:17)
[2021-08-05] MEDS: SACCHAROMYCES BOULARDII 250 MG CAPSULE PO SCH ×2 (09:17→18:11)
[2021-08-05] MEDS: CHOLECALCIFEROL 25 MCG TABLET PO SCH (09:17)
[2021-08-05] MEDS: PANTOPRAZOLE 40 MG TABLET PO SCH (09:17)
[2021-08-05] MEDS: HEPARIN 5,000 UNIT/ML VIAL SUBQ SCH ×2 (09:19→20:15)
[2021-08-05] MEDS: D5.45NS W/20 MEQ KCL 1,000 ML IV SCH ×2 (09:20→22:35)
[2021-08-05] MEDS: AZITHROMYCIN INJ 500 MG in SODIUM CHLORIDE 0.9% 250 ML IV SCH (09:20)
[2021-08-05] MEDS: cefTRIAXone 1 GM in SODIUM CHLORIDE 0.9% MINIBAG 100 ML IV SCH (20:10)
[2021-08-06] MEDS: PANTOPRAZOLE 40 MG TABLET PO SCH (05:57)
[2021-08-06 07:54] LABS: BASOPHILS % (AUTO) 0.5 %; EOSINOPHILS # (AUTO) 0.1 10^3/uL (0.0-0.7); EOSINOPHILS % (AUTO) 1.3 %; HCT - HEMATOCRIT 38.6 % (42.0-52.0); HGB - HEMOGLOBIN 12.4 g/dL (14.0-18.0); LYMPHOCYTES # (AUTO) 1.4 10^3/uL (1.5-3.5); LYMPHOCYTES % (AUTO) 15.8 %; MEAN CORPUSCULAR HEMOGLOBIN 28.8 pg (27.0-31.0); MEAN CORPUSCULAR HGB CONC 32.1 g/dL (32.0-36.0); MEAN CORPUSCULAR VOLUME 89.8 fL (80.0-94.0); MONOCYTES # (AUTO) 0.6 10^3/uL (0.0-1.0); MONOCYTES % (AUTO) 6.3 %; NEUTROPHILS # (AUTO) 6.4 10^3/uL (1.5-6.6); NEUTROPHILS % (AUTO) 73.1 %; PLT - PLATELET COUNT 274 10^3/uL (130-450); RED CELL DISTRIBUTION WIDTH 14.3 % (12.0-15.0); WHITE BLOOD COUNT 8.7 x10^3/uL (4.8-10.8)
[2021-08-06 08:03] LABS: CALCIUM 7.7 mg/dL (8.5-10.3); CREATININE 1.3 mg/dL (0.6-1.2); POTASSIUM 3.8 mmol/L (3.5-5.0)
[2021-08-06] MEDS: HEPARIN 5,000 UNIT/ML VIAL SUBQ SCH (08:55)
[2021-08-06] MEDS: CHOLECALCIFEROL 25 MCG TABLET PO SCH (08:56)
[2021-08-06] MEDS: PRENATAL VITAMIN TABLET PO SCH (08:56)
[2021-08-06] MEDS: AZITHROMYCIN INJ 500 MG in SODIUM CHLORIDE 0.9% 250 ML IV SCH (08:57)
[2021-08-06] MEDS: SACCHAROMYCES BOULARDII 250 MG CAPSULE PO SCH (08:57)
[2021-08-06] MEDS: SODIUM CHLORIDE FLUSH 0.9% 10 ML SYRINGE IVP SCH (08:57)
--- NOTE | 2021-08-06 10:51 | Discharge Plan ---
Discharge Plan Problem Reviewed?: Yes Disposition: Home, Self Care Condition: Stable Prescriptions: cefUROXime axetiL [Ceftin] 500 mg PO Q12H 4 Days #16 tablet Saccharomyces Boulardii [Florastor] 250 mg PO BIDWM #8 cap Atorvastatin [Lipitor] 40 mg PO QPM #30 tablet Pnv No.95/Ferrous Fum/Folic AC [ Tablet] 1 each PO DAILY #30 tablet Aspirin Chewable [[place] Aspirin] 81 mg PO DAILY #30 tablet Thiamine [Vitamin B-1] 100 mg PO DAILY #30 tablet Diet: Regular Activity Restrictions: Activity as Tolerated Shower Restrictions: No (fall precaution) Instruction Topics: Pneumonia, COVID-19 [facility], COVID-19 [facility] Department Statement, Dehydration, Stroke Taking Meds, Aspirin ASA chewable tablets, Atorvastatin tablets, Cefuroxime tablets Health Concerns: pneumonia and Covid 19, dehydration, stroke prevention Plan of Treatment: you are treated with antibiotics for your bacteria pneumonia. Ceftin is prescribed for you to finish the treatment course. You are also Covid 19 positive. You may followup with [facility] for Covid 19 recommendation, discussed with your PCP to have Covid 19 vaccination. You state you are willing to have Covid 19 vaccination. scale assembly set up worker help you set up your PCP. You were found to have severe dehydration at the admission. As we discussed, It is very important to keep yourself hydration at home. You had multiple times of stroke before. After discussed the benefit and risk to take medications to prevention of stroke, you agree to have medications for your prevention of stroke. Medications Aspirin and Lipitor are prescribed for you. You may followup with your PCP to have out-pt PT and OT. Care Goals: Stabilization and improvement of your medical conditions Assessment: Discussed the care plan with you today, and your son on yesterday, answered your questions, you understood Additional Instructions or Follow Up instructions: You may follow-up with your PCP in 1 to 2 weeks. should your symptoms return or worsen, you may present to the ER or call 911 for help Follow-Up Care: Outpatient Rehab - PT, Outpatient Rehab - OT No Smoking: If you smoke, Please STOP! Call for help.
[2021-08-06] MEDS ORDERED: ASPIRIN CHEW 81 MG TABLET PO SCH (11:00)
[2021-08-06] MEDS ORDERED: THIAMINE 100 MG TABLET PO SCH (11:00)
--- NOTE | 2021-08-06 11:06 | DISCHARGE SUMMARY ---
Discharge Summary Admit Date: 08/03/21 Discharge Date: 08/06/21 Discharging Provider: Chino Delgado Condition at Discharge: Stable Discharge Disposition: 01 Home, Self Care Discharge Facility Name: home - DIAGNOSES Discharge Diagnoses with Status of Each Condition: (1) Community acquired pneumonia great improved. Patient had 98% Oxygen saturation on room air, Patient has no acute respiratory distress on rest and exertion. Patient is prescribed antibiotics to finish the treatment course. (2) Altered mental status resolved. pt is alert and oriented. (3) Acute kidney injury Resolved. creatinine is 1.3 today, his baseline was 1.6 on 2019. Discussed the care plan with the patient and patient's son by the phone, strongly advise patient keep hydration in the home. (4) Hypernatremia resolved. strongly advise patient keep hydration in the home. (5) COVID-19 Patient is asymptomatic for COVID-19. Patient does not need oxygen at the hospital, patient has no acute respiratory distress. Patient may follow-up with [facility]: COVID-19 protocol. Follow-up with his PCP to discuss COVID-19 vaccination. Social work was consulted to set up his PCP. advise pt wear a well fitting mask when around others for the following 5 days. (6) History of stroke Patient had history of multiple times of stroke. Patient had no acute focal neurological deficits in the hospital. Patient did not take any medication in his home. Patient agree to have aspirin and Lipitor to prevention of stroke. discussed the care plan with the patient and patient's son. - HPI History of Present Illness: refer from Dr. Ulloa's HPI on 08/03/21 This is a 76-year-old male with a past medical history significant for multiple strokes, small bowel obstruction status post right hemicolectomy who presents today due to worsening shortness of breath. Most of the history is obtained from the patient's son as patient is confused and an unreliable historian. The patient tells me that his symptoms are time for the past week and when he arrived today to see him, he noticed the patient was more confused and appeared quite short of breath. The patient states he has been short of breath for the past few days and has had an occasional cough. He reports no fevers or chills. He is not vaccinated against Covid. He denies any chest pain. He states he has had a poor appetite and is only been eating applesauce and strawberries. He states he feels quite similar to an episode of pneumonia he had about 1 year ago. The patient's son tells me that his father has a history of multiple strokes and was supposed to undergo what appears to be a carotid endarterectomy but the patient declined this. He is post to be on either aspirin or warfarin but the patient declined all therapies. He states his father takes no medications whatsoever. He states he has had some personality changes and occa sional confusion since his strokes but he is definitely more confused today compared to when he saw him about 1 week ago. The patient normally lives independently and his son checks on him. The patient admits to drinking 1 beer a day which his son confirms. The patient continues to smoke about a pack a day and has been doing so for nearly 50 years. In our emergency department, he was noted to the right lower lobe infiltrate as well as acute kidney injury and hyponatremia. Given the above findings, medicine was consulted for admission. I discussed goals of care the patient he would like to be a DNR and this was confirmed by his son. - ALLERGIES Allergies/Adverse Reactions: Allergies Allergy/AdvReac Type Severity Reaction Status Date / Time No Known Drug Allergies Allergy Verified 08/03/21 12:33 - MEDICATIONS Home Medications: Ambulatory Orders Medication Instructions Recorded Confirmed Aspirin Chewable [[place] 81 mg PO DAILY #30 tablet 08/06/21 Aspirin] Atorvastatin [Lipitor] 40 mg PO QPM #30 tablet 08/06/21 Pnv No.95/Ferrous Fum/Folic AC 1 each PO DAILY #30 tablet 08/06/21 [ Tablet] Saccharomyces Boulardii [Florastor] 250 mg PO BIDWM #8 cap 08/06/21 Thiamine [Vitamin B-1] 100 mg PO DAILY #30 tablet 08/06/21 cefUROXime axetiL [Ceftin] 500 mg PO Q12H 4 Days #16 tablet 08/06/21 - PHYSICAL EXAM AT DISCHARGE General Appearance: positive: No acute distress, Alert. negative: Lethargic Eyes Bilateral: positive: Normal inspection, No lid inflammation ENT: positive: ENT inspection nml, No signs of dehydration. negative: Purulent nasal drainage Neck: positive: Nml inspection, Trachea midline. negative: Tracheal deviation Respiratory: positive: Chest non-tender, No respiratory distress. negative: Wheezes Cardiovascular: positive: Regular rate & rhythm. negative: Tachycardia, Bradycardia, Systolic murmur Peripheral Pulses: positive: 2+ Abdomen: positive: Non-tender, Nml bowel sounds, No distention. negative: Tenderness Back: positive: Nml inspection Skin: positive: Color nml, Warm, Dry. negative: Cyanosis Extremities: positive: Non-tender, Full ROM, Nml appearance Neurologic/Psychiatric: positive: Oriented x3, Motor nml, Sensation nml. negative: Weakness, Sensory loss, Facial droop, Slurred/abnml speech, Depressed mood/affect - LABS Result Diagrams: 08/06/21 07:42 08/06/21 07:42 - FOLLOW UP Follow Up: you are treated with antibiotics for your bacteria pneumonia. Ceftin is prescribed for you to finish the treatment course. You are also Covid 19 positive. You may followup with [facility] for Covid 19 re commendation, discussed with your PCP to have Covid 19 vaccination. You state you are willing to have Covid 19 vaccination. handy worker help you set up your PCP. You were found to have severe dehydration at the admission. As we discussed, It is very important to keep yourself hydration at home. You had multiple times of stroke before. After discussed the benefit and risk to take medications to prevention of stroke, you agree to have medications for your prevention of stroke. Medications Aspirin and Lipitor are prescribed for you. You may followup with your PCP to have out-pt PT and OT. You may follow-up with your PCP in 1 to 2 weeks. should your symptoms return or worsen, you may present to the ER or call 911 for help - TIME SPENT Time Spent in Discharge (Minutes): 30
[2021-08-06 14:45] VITALS: BP 105/59
[2021-08-06] MEDS ORDERED: ATORVASTATIN 40 MG TABLET PO SCH (21:00)
== END 2021-08-06 15:38 | disposition home or self-care (01) | DRG 177 ==
LOC: ED 12:27 → MS2 20:06
PROVIDERS: ADMIT Internal Medicine; ATTEND Nurse Practitioner Gerontology
DX: U07.1 COVID-19 (principal); J12.82 Pneumonia due to coronavirus disease 2019; J44.0 Chronic obstructive pulmonary disease with (acute) lower respiratory infection; J15.9 Unspecified bacterial pneumonia; N17.9 Acute kidney failure, unspecified; E87.0 Hyperosmolality and hypernatremia; E86.0 Dehydration; Z87.891 Personal history of nicotine dependence; F17.200 Nicotine dependence, unspecified, uncomplicated; R41.82 Altered mental status, unspecified; Z66 Do not resuscitate; Z79.82 Long term (current) use of aspirin; Z79.899 Other long term (current) drug therapy; Z86.73 Personal history of transient ischemic attack (TIA), and cerebral infarction without residual deficits
CPT/HCPCS: 36415; 71046; 80048; 83605; 84443; 85025; 87040; 87631; 94640; 94664; 96361; 96374; 99284; 99285; A9270; J7512; U0004; 0202U